=== PATIENT | female | born 1970 | race Caucasian/White ===

== ENCOUNTER 2017-08-14 12:12 | Inpatient (IN) | payer OTHER ==
[2017-08-14 12:32] VITALS: BMI 52.1
[2017-08-14] MEDS ORDERED: ACETAMINOPHEN 1000 MG/100 ML VIAL (NON FORMULARY) IVPB ONE ×2 (12:50→21:30)
[2017-08-14] MEDS ORDERED: SODIUM CHLORIDE 1,000 ML IV STA ×2 (12:50→13:38)
[2017-08-14] MEDS ORDERED: ACETAMINOPHEN INJECTION 100 ML IVPB ONE (13:06)
--- NOTE | 2017-08-14 13:07 | PDOC ---
History of Present Illness - General Chief Complaint: Cold Symptoms Stated Complaint: FEVER Time Seen by Provider: 08/14/17 12:20 History Source: Patient Exam Limitations: No Limitations - History of Present Illness Initial Comments: 08/14/17 13:07 47-year-old female patient with history of asthma, obesity, fibroids, perimenopause presents with one week of fever. She reports no fevers that she's been taken Tylenol Motrin for. Temperature maximum of 103 this was several days ago. Stated that she's had had loose stools but denies any coughing. Reported chills. Denies dysuria but currently on her menstrual period. Came to the ED as her fever has been persistent. Denies sick contacts or recent travels. 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 Past History - Past Medical History Allergies/Adverse Reactions: Allergies Allergy/AdvReac Type Severity Reaction Status Date / Time No Known Allergies Allergy Verified 08/14/17 12:24 Home Medications: Ambulatory Orders NK [No Known Home Medication] 08/14/17 COPD: No Disorders: Yes (FIBROIDS) - Suicide/Smoking/Psychosocial Hx Smoking History: Never smoked Hx Alcohol Use: No Drug/Substance Use Hx: No Substance Use Type: None Review of Systems - Review of Systems Able to Perform ROS?: Yes Comments:: 08/14/17 13:08 GENERAL/CONSTITUTIONAL: +fever HEAD, EYES, EARS, NOSE AND THROAT: No change in vision. No ear pain or discharge. No sore throat. CARDIOVASCULAR: No chest pain or shortness of breath. RESPIRATORY: No cough, wheezing, or hemoptysis. GASTROINTESTINAL: No abdominal pain, nausea, vomiting, or decreased PO intolerance.+ diarrhea GENITOURINARY: No dysuria, frequency, or change in urination. MUSCULOSKELETAL: No joint or muscle swelling or pain. No neck or back pain. SKIN: No rash NEUROLOGIC: No headache, vertigo, loss of consciousness, or change in strength/ sensation. ENDOCRINE: No increased thirst. No abnormal weight change. HEMATOLOGIC/LYMPHATIC: No anemia, easy bleeding, or history of blood clots. ALLERGIC/IMMUNOLOGIC: No hives or skin allergy. *Physical Exam - Vital Signs Last Vital Signs Temp Pulse Resp BP Pulse Ox 101.2 F H 108 H 18 122/85 100 08/14/17 12:13 08/14/17 12:13 08/14/17 12:13 08/14/17 12:13 08/14/17 12:13 - Physical Exam Comments: 08/14/17 13:09 GENERAL: Awake, alert, and fully oriented, in no acute distress. Obese HEAD: No signs of trauma EYES: PERRLA, EOMI, sclera anicteric, conjunctiva clear ENT: Auricles normal inspection, hearing grossly normal, nares patent NECK: Normal ROM, supple LUNGS: Breath sounds equal, clear to auscultation bilaterally. No wheezes, and no crackles HEART: Regular rate and rhythm, normal S1 and S2, no murmurs, rubs or gallops ABDOMEN: Soft. No guarding, no rebound. No masses. TTP suprapubic. Negative McBurney's point. EXTREMITIES: Normal range of motion, no edema. No clubbing or cyanosis. No cords, erythema, or tenderness NEUROLOGICAL: Cranial nerves II through XII grossly intact. Normal speech, normal gait SKIN: Warm, Dry, normal turgor, no rashes or lesions noted. ED Treatment Course - LABORATORY CBC & Chemistry Diagram: 08/14/17 13:00 08/14/17 13:00 Medical Decision Making - Medical Decision Making 08/14/17 13:10 Vital Signs Temp Pulse Resp BP Pulse Ox 101.2 F H 108 H 18 122/85 100 08/14/17 12:13 08/14/17 12:13 08/14/17 12:13 08/14/17 12:13 08/14/17 12:13 47-year-old female with suprapubic abdominal pain and fever. We'll obtain blood work, cultures and urinalysis. The urine demonstrates urine tract infection, I suspect this is likely the case. Reassess. 08/14/17 17:12 CAT scan demonstrates 24 cm pelvic mass suggestive of a mild one. 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 CBC, BMP 08/14/17 13:00 08/14/17 13:00 CMP Sodium 131 mmol/L (136-145) L 08/14/17 13:00 Potassium 3.4 mmol/L (3.5-5.1) L 08/14/17 13:00 Chloride 94 mmol/L (98-107) L 08/14/17 13:00 Carbon Dioxide 26 mmol/L (22-28) 08/14/17 13:00 Anion Gap 11 (8-16) 08/14/17 13:00 BUN 8 mg/dl (7-18) 08/14/17 13:00 Creatinine 0.7 mg/dl (0.6-1.3) 08/14/17 13:00 Creat Clearance w eGFR > 60 (>60) 08/14/17 13:00 Random Glucose 128 mg/dl (74-106) H 08/14/17 13:00 Lactic Acid 1.0 mmol/L (0.0-2.0) 08/14/17 13:40 Calcium 8.3 mg/dl (8.4-10.2) L 08/14/17 13:00 Total Bilirubin 0.3 mg/dl (0.2-1.0) 08/14/17 13:00 AST 53 U/L (10-42) H 08/14/17 13:00 ALT 75 U/L (10-40) H 08/14/17 13:00 Alkaline Phosphatase 184 U/L (32-92) H 08/14/17 13:00 Total Protein 6.9 g/dl (6.4-8.3) 08/14/17 13:00 Albumin 2.6 g/dl (3.5-5.0) L 08/14/17 13:00 Urine Test Results Urine Color Brown 08/14/17 12:52 Urine Appearance Cloudy 08/14/17 12:52 Urine pH 5.5 (4.5-8) 08/14/17 12:52 Ur Specific [place] 1.020 (1.005-1.025) 08/14/17 12:52 Urine Protein 2+ (NEGATIVE) H 08/14/17 12:52 Urine Glucose (UA) Negative (NEGATIVE) 08/14/17 12:52 Urine Ketones Trace (NEGATIVE) 08/14/17 12:52 Urine Blood 3+ (NEGATIVE) H 08/14/17 12:52 Urine Nitrite Negative (NEGATIVE) 08/14/17 12:52 Urine Bilirubin 2+ (NEGATIVE) H 08/14/17 12:52 Ur Leukocyte Esterase Trace (NEGATIVE) H 08/14/17 12:52 Urine RBC >100 /hpf (0-3) 08/14/17 12:52 Urine WBC 20-30 (0-5) 08/14/17 12:52 Ur Epithelial Cells Few /HPF 08/14/17 12:52 Urine Mucus Few 08/14/17 12:52 It is unclear what the etiology of the patient's fever at this time is. We'll presume that this is urine. Given concerns for bacteremia given elevated white blood cell count, patient was given a dose of Rocephin. Case is discussed with hospitalist who accepts the patient at [facility]. Case discussed in detail with admitting physician including history, physical exam and ancillary studies. Admitting physician has assumed care for the patient, will follow all pending diagnostics and will complete the evaluation and treatment. *DC/Admit/Observation/Transfer Diagnosis at time of Disposition: Elevated WBC count Qualifiers: Leukocytosis type: unspecified Qualified Code(s): D72.829 - Elevated white blood cell count, unspecified - Discharge Dispostion Condition at time of disposition: Stable Admit: Yes - Referrals Referrals: Lanny Kang MD [Primary Care Provider] - - Patient Instructions - Post Discharge Activity
[2017-08-14 13:08] LABS: HCG,QUALITATIVE URINE NEGATIVE
[2017-08-14 13:10] LABS: PH,URINE 5.5 (4.5-8); URINE BILIRUBIN 2+ (NEGATIVE); URINE BLOOD 3+ (NEGATIVE); URINE COLOR BROWN; URINE GLUCOSE (UA) Negative (NEGATIVE); URINE KETONE Trace (NEGATIVE)
[2017-08-14 13:11] LABS: URINE LEUK ESTERASE TRACE (NEGATIVE); URINE NITRITE NEGATIVE (NEGATIVE); URINE PROTEIN 2+ (NEGATIVE); URINE UROBILINOGEN 0.2 (0.2-1.0)
[2017-08-14 13:13] LABS: EPI CELLS FEW /HPF; URINE MUCUS FEW; URINE RBC >100 /hpf (0-3); URINE WBC 20-30 (0-5)
[2017-08-14 13:21] LABS: MEAN PLT VOLUME 7.1 fl (7.5-11.1); RDW 15.3 % (11.6-15.6)
[2017-08-14 13:26] LABS: URINE APPEARANCE CLOUDY
[2017-08-14 13:26] LABS: HEMATOCRIT 34.8 % (32.4-45.2); HEMOGLOBIN 11.5 GM/dl (10.7-15.3); MCHC 33.1 g/dl (32.0-36.0); MEAN CELL VOLUME 81.6 fl (80-96); PLATELET COUNT 491 K/MM3 (134-434); RBC 4.26 M/mm3 (3.60-5.2)
[2017-08-14 13:29] LABS: ADD RBC MORPHOLOGY YES; WHITE BLOOD COUNT 35.5 K/mm3 (4.0-10.8)
[2017-08-14] MEDS ORDERED: CEFTRIAXONE 1 GM in DEXTROSE 5%-WATER - 50 ML IVPB ONE (13:31)
[2017-08-14 13:34] LABS: ALBUMIN 2.6 g/dl (3.5-5.0); ALK PHOS 184 U/L (32-92); ANION GAP 11 (8-16); BILIRUBIN,TOTAL 0.3 mg/dl (0.2-1.0); BLOOD UREA NITROGEN 8 mg/dl (7-18); CALCIUM 8.3 mg/dl (8.4-10.2); CHLORIDE 94 mmol/L (98-107); CO2 26 mmol/L (22-28); CREATININE 0.7 mg/dl (0.6-1.3); GLUCOSE,RANDOM 128 mg/dl (74-106); POTASSIUM 3.4 mmol/L (3.5-5.1); SGOT/AST 53 U/L (10-42); SGPT/ALT 75 U/L (10-40); SODIUM 131 mmol/L (136-145); TOT PROT 6.9 g/dl (6.4-8.3)
[2017-08-14] MEDS ORDERED: cefTRIAXone SODIUM 1 GM VIAL ONE (13:38)
[2017-08-14 13:57] LABS: PLATELET ESTIMATE INCREASED
[2017-08-14] MEDS ORDERED: ACETAMINOPHEN 325 MG TABLET (FP) PO PRN (22:22)
[2017-08-14] MEDS ORDERED: CEFTRIAXONE 1 GM in DEXTROSE 5%-WATER - 50 ML IVPB SCH (22:27)
[2017-08-14] MEDS ORDERED: SODIUM CHLORIDE 1,000 ML IV SCH (22:30)
--- NOTE | 2017-08-14 22:31 | PN ---
Teaching Attending Note Name of Resident: Gerard Painter ATTENDING PHYSICIAN STATEMENT I saw and evaluated the patient. I reviewed the resident's note and discussed the case with the resident. I agree with the resident's findings and plan as documented. SUBJECTIVE: This is a 47 year old woman with a history of asthma, fibroids, morbid obesity who comes to the ED complaining of fever, diarrhea, abdominal cramping. She reports having fevers to 103 over the past several days. She has had 3 episodes of loose brown stool in the last 2 days which she says smelled infectious. She has lower abdominal cramping which she attributes to having her menses. She denies dysuria. She has not traveled recently. She says she was diagnosed with an 18 cm fibroid in 04/2017 and around that time was treated with an oral antibiotic (she does not know which) x 1 week for UTI. OBJECTIVE: Vital Signs Period Temp Pulse Resp BP Sys/Solares Pulse Ox Last 24 Hr 98.6 F-101.2 F 83-108 16-18 107-122/60-85 93-100 GENERAL: Appears dyspneic HEART: S1S2, tachycardic LUNGS: Clear ABDOMEN: Obese, soft, (+) mild suprapubic tenderness, normal BS EXTREMITIES: No edema Laboratory Tests 08/14/17 08/14/17 08/14/17 12:52 13:00 13:00 WBC 35.5 H* RBC 4.26 Hgb 11.5 Hct 34.8 MCV 81.6 MCH 27.0 MCHC 33.1 RDW 15.3 Plt Count 491 H MPV 7.1 L Neutrophils % No Result Required. Neutrophils % (Manual) 87.0 H Band Neutrophils % 2.0 Lymphocytes % No Result Required. Lymphocytes % (Manual) 3.0 L Monocytes % (Manual) 7 Eosinophils % (Manual) 1.0 Platelet Estimate Increased Sodium 131 L Potassium 3.4 L Chloride 94 L Carbon Dioxide 26 Anion Gap 11 BUN 8 Creatinine 0.7 Creat Clearance w eGFR > 60 Random Glucose 128 H Lactic Acid Calcium 8.3 L Total Bilirubin 0.3 AST 53 H ALT 75 H Alkaline Phosphatase 184 H Total Protein 6.9 Albumin 2.6 L Urine Color Brown Urine Appearance Cloudy Urine pH 5.5 Ur Specific [place] 1.020 Urine Protein 2+ H Urine Glucose (UA) Negative Urine Ketones Trace Urine Blood 3+ H Urine Nitrite Negative Urine Bilirubin 2+ H Urine Urobilinogen 0.2 Ur Leukocyte Esterase Trace H Urine RBC >100 Urine WBC 20-30 Ur Epithelial Cells Few Urine Mucus Few Urine HCG, Qual Negative 08/14/17 13:40 WBC RBC Hgb Hct MCV MCH MCHC RDW Plt Count MPV Neutrophils % Neutrophils % (Manual) Band Neutrophils % Lymphocytes % Lymphocytes % (Manual) Monocytes % (Manual) Eosinophils % (Manual) Platelet Estimate Sodium Potassium Chloride Carbon Dioxide Anion Gap BUN Creatinine Creat Clearance w eGFR Random Glucose Lactic Acid 1.0 Calcium Total Bilirubin AST ALT Alkaline Phosphatase Total Protein Albumin Urine Color Urine Appearance Urine pH Ur Specific [place] Urine Protein Urine Glucose (UA) Urine Ketones Urine Blood Urine Nitrite Urine Bilirubin Urine Urobilinogen Ur Leukocyte Esterase Urine RBC Urine WBC Ur Epithelial Cells Urine Mucus Urine HCG, Qual Home Medications Medication Instructions Recorded NK [No Known Home Medication] 08/14/17 ASSESSMENT AND PLAN: This is a 47 year old woman with a history of asthma, fibroids, morbid obesity who presented to the ED with fever, diarrhea, abdominal cramping. She was found to have temp 101.4, WBC 35.5, Na 131, AST 53, ALT 75, alk phos 184, albumin 2.6. UA showed 2+ protein, 3+ blood, 2+ bili, trace leuk esterase, 20-30 WBC, > 100 RBC. 1. Sepsis, likely secondary to intra-abdominal source, doubt UTI - Rocephin given in ED - Continue Rocephin and add Flagyl IV - Stool WBC, O&P, C&S, C. difficile - RUQ US - IV fluid - Follow up urine, blood cultures 2. Hyponatremia, hypokalemia - Likely secondary to GI losses - IV NS - Replete potassium - Monitor electrolytes 3. Hepatic transaminitis with elevated alk phos - RUQ US 4. Uterine fibroid 5. Asthma - Stable - Albuterol nebs as needed 6. Morbid obesity with BMI 52.1
[2017-08-14] MEDS ORDERED: HEPARIN NA (PORCINE) 5,000 UNITS/ML 1ML VIAL SQ SCH (22:45)
[2017-08-14] MEDS: SODIUM CHLORIDE 1,000 ML IV SCH (23:25)
[2017-08-14] MEDS: HEPARIN NA (PORCINE) 5,000 UNITS/ML 1ML VIAL SQ SCH (23:25)
--- NOTE | 2017-08-15 02:45 | HP ---
CHIEF COMPLAINT: fever PCP: HISTORY OF PRESENT ILLNESS: The patient is a 47 yo m w/ PMH Asthma and uterine fibroid comes into the ED c/ o a 1 week history of fever and chills. The patient began to experience a fever (highest fever measured 103 degrees) for the past 1 week. The fever is associated with 3 episodes of nonbloody diarrhea which were watery, brown and "smelled infected". Patient denies any sick contacts, recent changes in diet, constipation, chest pain, SOB. 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 ER course was notable for: (1) CT AP showing a 24 CM mass in the abdomen (2) WBC 35.5 (3) Recent Travel: none PAST MEDICAL HISTORY: Asthma Obesity uterine fibroids PAST SURGICAL HISTORY: C section x2 fibroid removal Social History: Smoking: denies Alcohol: denies Drugs: denies Family History: non-contributory Allergies No Known Allergies Allergy (Verified 08/14/17 12:24) HOME MEDICATIONS: Home Medications Medication Instructions Recorded NK [No Known Home Medication] 08/14/17 REVIEW OF SYSTEMS CONSTITUTIONAL: Absent: diaphoresis, generalized weakness, malaise, loss of appetite, weight change HEENT: Absent: rhinorrhea, nasal congestion, throat pain, throat swelling, difficulty swallowing, mouth swelling, ear pain, eye pain, visual changes CARDIOVASCULAR: Absent: chest pain, syncope, palpitations, irregular heart rate, lightheadedness , peripheral edema RESPIRATORY: Absent: cough, shortness of breath, dyspnea with exertion, orthopnea, wheezing, stridor, hemoptysis GASTROINTESTINAL: Absent: abdominal pain, abdominal distension, nausea, vomiting, diarrhea, constipation, melena, hematochezia GENITOURINARY: Absent: dysuria, frequency, urgency, hesitancy, hematuria, flank pain, genital pain MUSCULOSKELETAL: Absent: myalgia, arthralgia, joint swelling, back pain, neck pain SKIN: Absent: rash, itching, pallor HEMATOLOGIC/IMMUNOLOGIC: Absent: easy bleeding, easy bruising, lymphadenopathy, frequent infections ENDOCRINE: Absent: unexplained weight gain, unexplained weight loss, heat intolerance, cold intolerance NEUROLOGIC: Absent: headache, focal weakness or paresthesias, dizziness, unsteady gait, seizure, mental status changes, bladder or bowel incontinence PSYCHIATRIC: Absent: anxiety, depression, suicidal or homicidal ideation, hallucinations. PHYSICAL EXAMINATION Vital Signs - 24 hr 08/14/17 08/14/17 08/14/17 12:13 14:45 17:53 Temperature 101.2 F H 98.6 F 100.3 F H Pulse Rate 108 H 102 H Pulse Rate [ 83 Apical] Respiratory 18 16 18 Rate Blood Pressure 122/85 107/60 Blood Pressure 108/62 [Arm] O2 Sat by Pulse 100 93 L Oximetry (%) 08/14/17 08/14/17 18:02 20:00 Temperature 102.6 F H Pulse Rate 114 H Pulse Rate [ Apical] Respiratory 18 Rate Blood Pressure 123/68 Blood Pressure [Arm] O2 Sat by Pulse 96 97 Oximetry (%) GENERAL: Awake, alert, and fully oriented, in no acute distress. HEAD: Normal with no signs of trauma. NECK: Normal range of motion, supple without lymphadenopathy, JVD, or masses. LUNGS: Breath sounds equal, clear to auscultation bilaterally. No wheezes, and no crackles. No accessory muscle use. HEART: Regular rate and rhythm, normal S1 and S2 without murmur, rub or gallop. ABDOMEN: Firm, mild discomfort to palpation in the upper quadrants, obese, normoactive bowel sounds. LOWER EXTREMITIES: 2+ pulses, warm, well-perfused. No calf tenderness. No peripheral edema. NEUROLOGICAL: Cranial nerves II-X intact. Normal speech. SKIN: Warm, dry, normal turgor, no rashes or lesions noted, normal capillary refill. Laboratory Results - last 24 hr 08/14/17 08/14/17 08/14/17 12:52 13:00 13:00 WBC 35.5 H* RBC 4.26 Hgb 11.5 Hct 34.8 MCV 81.6 MCH 27.0 MCHC 33.1 RDW 15.3 Plt Count 491 H MPV 7.1 L Neutrophils % No Result Required. Neutrophils % (Manual) 87.0 H Band Neutrophils % 2.0 Lymphocytes % No Result Required. Lymphocytes % (Manual) 3.0 L Monocytes % (Manual) 7 Eosinophils % (Manual) 1.0 Platelet Estimate Increased Sodium 131 L Potassium 3.4 L Chloride 94 L Carbon Dioxide 26 Anion Gap 11 BUN 8 Creatinine 0.7 Creat Clearance w eGFR > 60 Random Glucose 128 H Lactic Acid Calcium 8.3 L Total Bilirubin 0.3 AST 53 H ALT 75 H Alkaline Phosphatase 184 H Total Protein 6.9 Albumin 2.6 L Urine Color Brown Urine Appearance Cloudy Urine pH 5.5 Ur Specific [place] 1.020 Urine Protein 2+ H Urine Glucose (UA) Negative Urine Ketones Trace Urine Blood 3+ H Urine Nitrite Negative Urine Bilirubin 2+ H Urine Urobilinogen 0.2 Ur Leukocyte Esterase Trace H Urine RBC >100 Urine WBC 20-30 Ur Epithelial Cells Few Urine Mucus Few Urine HCG, Qual Negative 08/14/17 13:40 WBC RBC Hgb Hct MCV MCH MCHC RDW Plt Count MPV Neutrophils % Neutrophils % (Manual) Band Neutrophils % Lymphocytes % Lymphocytes % (Manual) Monocytes % (Manual) Eosinophils % (Manual) Platelet Estimate Sodium Potassium Chloride Carbon Dioxide Anion Gap BUN Creatinine Creat Clearance w eGFR Random Glucose Lactic Acid 1.0 Calcium Total Bilirubin AST ALT Alkaline Phosphatase Total Protein Albumin Urine Color Urine Appearance Urine pH Ur Specific [place] Urine Protein Urine Glucose (UA) Urine Ketones Urine Blood Urine Nitrite Urine Bilirubin Urine Urobilinogen Ur Leukocyte Esterase Urine RBC Urine WBC Ur Epithelial Cells Urine Mucus Urine HCG, Qual ASSESSMENT/PLAN: This is a 47 yo f w/ PMH asthma and uterine fibroids who is being admitted for workup of fever and leukocytosis #Sepsis w/ unknown source, r/o C. Diff, cholecystitis -UA does not show florid UTI (2+ blood secondary to menstruation) -CXR clear -LFTs, Alp elevated -RUQ US -Stool for ova parasites -stool for C. Diff -stool for WBC -Ceftriaxone 1gm daily -flagyl 500mg Q6H -BCX pending -UCX pending #Hypokalemia -repleted w/ 40meq of KCL -trend #Abdominal mass on CT -Patient aware of large, preexisting leiomyoma. Follows w/ [facility] at [facility] -consider further workup if initial sepsis workup negative. #Asthma -Duonebs PRN #FEN -no fluids indicated -replete lytes as discussed above -regular diet #Prophy -Heparin SQ 5ku TID #Dispo -admit to med surg Visit type - Emergency Visit Emergency Visit: Yes ED Registration Date: 08/14/17 Care time: The patient presented to the Emergency Department on the above date and was hospitalized for further evaluation of their emergent condition. - New Patient This patient is new to me today: Yes Date on this admission: 08/15/17 - Critical Care Critical Care patient: No Hospitalist Screening - Colonoscopy Questionnaire Colonoscopy Questionnaire: Colonoscopy Questionnaire - Patient: 50 - 75 years old and never had a screening colonoscopy: Unknown History of colon or rectal polyps, or CA: Unknown History of IBD, Crohn's disease or UC: Unknown History of abdominal radiation therapy as a child: Unknown - Relative: 1 with colon or rectal CA, or polyps at age 60 or younger: Unknown Colon or rectal CA diagnosed at age 45 or younger: Unknown Multiple relatives with colon or rectal CA: Unknown - Outcome: Screening Result: Negative Screen
[2017-08-15] MEDS ORDERED: POTASSIUM CHLORIDE TABS 20 MEQ TABLET.ER (FP) PO ONE ×3 (04:01→11:19)
[2017-08-15] MEDS: HEPARIN NA (PORCINE) 5,000 UNITS/ML 1ML VIAL SQ SCH ×3 (06:43→23:24)
[2017-08-15 07:15] LABS: HEMATOCRIT 33.3 % (32.4-45.2); HEMOGLOBIN 10.7 GM/dL (10.7-15.3); MCH 26.6 pg (25.7-33.7); MEAN CELL VOLUME 83.1 fl (80-96); PLATELET COUNT 392 K/MM3 (134-434); RBC 4.01 M/mm3 (3.60-5.2); RDW 16.4 % (11.6-15.6); WHITE BLOOD COUNT 34.8 K/mm3 (4.0-10.0)
[2017-08-15 07:50] LABS: INR 1.28 (0.82-1.09); PROTHROMBIN TIME (PATIENT) 14.5 SEC (9.98-11.88)
[2017-08-15 07:53] LABS: ACTIVATED PTT 27.4 SECONDS (26.9-34.4)
[2017-08-15] MEDS ORDERED: cefTRIAXone SODIUM 1 GM VIAL ONE (08:42)
[2017-08-15] MEDS ORDERED: DEXTROSE 5%-WATER - 50 ML IVPB ONE (08:42)
[2017-08-15] MEDS: ACETAMINOPHEN 325 MG TABLET (FP) PO PRN ×2 (09:46→17:03)
[2017-08-15] MEDS ORDERED: CEFTRIAXONE 1 GM in DEXTROSE 5%-WATER - 50 ML IVPB SCH (10:00)
--- NOTE | 2017-08-15 10:37 | PN ---
Progress Note (short form) - Note Progress Note: Subjective: No fever or chills. reports fever x 10 days , for which she took over the counter meds. diarrhea x 2 days , watery foul smelling , 2 BMs a day . has her period x 4 days, now spotting. no N/V. was diagnosed with fibroid in [facility], in 05/09, had MRI there. was diagnosed with UTi, treated for UTI. saw her pCP in May , gave her Abx. no fever or Abx since then. 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 she developed LLQ pain, for which she came here. this has resolved this am. denies any dysuria or urgency. no RUQ pain Objective: Vital Signs: Last Vital Signs Temp Pulse Resp BP Pulse Ox 99.4 F 99 H 18 142/86 97 08/15/17 06:00 08/15/17 06:00 08/15/17 06:00 08/15/17 06:00 08/14/17 20:00 Laboratory Results - last 24 hr 08/14/17 08/14/17 08/14/17 12:52 13:00 13:00 WBC 35.5 H* RBC 4.26 Hgb 11.5 Hct 34.8 MCV 81.6 MCH 27.0 MCHC 33.1 RDW 15.3 Plt Count 491 H MPV 7.1 L Neutrophils % No Result Required. Neutrophils % (Manual) 87.0 H Band Neutrophils % 2.0 Lymphocytes % No Result Required. Lymphocytes % (Manual) 3.0 L Monocytes % (Manual) 7 Eosinophils % (Manual) 1.0 Platelet Estimate Increased PT with INR INR PTT (Actin FS) Sodium 131 L Potassium 3.4 L Chloride 94 L Carbon Dioxide 26 Anion Gap 11 BUN 8 Creatinine 0.7 Creat Clearance w eGFR > 60 Random Glucose 128 H Lactic Acid Calcium 8.3 L Total Bilirubin 0.3 AST 53 H ALT 75 H Alkaline Phosphatase 184 H Total Protein 6.9 Albumin 2.6 L Urine Color Brown Urine Appearance Cloudy Urine pH 5.5 Ur Specific [place] 1.020 Urine Protein 2+ H Urine Glucose (UA) Negative Urine Ketones Trace Urine Blood 3+ H Urine Nitrite Negative Urine Bilirubin 2+ H Urine Urobilinogen 0.2 Ur Leukocyte Esterase Trace H Urine RBC >100 Urine WBC 20-30 Ur Epithelial Cells Few Urine Mucus Few Urine HCG, Qual Negative 08/14/17 08/15/17 08/15/17 13:40 06:00 06:00 WBC 34.8 H* RBC 4.01 Hgb 10.7 Hct 33.3 MCV 83.1 MCH 26.6 MCHC 32.0 RDW 16.4 H Plt Count 392 MPV 7.0 L Neutrophils % No Result Required. Neutrophils % (Manual) Band Neutrophils % Lymphocytes % No Result Required. Lymphocytes % (Manual) Monocytes % (Manual) Eosinophils % (Manual) Platelet Estimate PT with INR 14.50 H INR 1.28 H PTT (Actin FS) 27.4 Sodium Potassium Chloride Carbon Dioxide Anion Gap BUN Creatinine Creat Clearance w eGFR Random Glucose Lactic Acid 1.0 Calcium Total Bilirubin AST ALT Alkaline Phosphatase Total Protein Albumin Urine Color Urine Appearance Urine pH Ur Specific [place] Urine Protein Urine Glucose (UA) Urine Ketones Urine Blood Urine Nitrite Urine Bilirubin Urine Urobilinogen Ur Leukocyte Esterase Urine RBC Urine WBC Ur Epithelial Cells Urine Mucus Urine HCG, Qual Physical Exam: NAD , MMM, rash on face CV: RRR, 2/6 SM at base and LLSB Lungs:CTAB abd: obese, soft, TTP in periumbilical area. a solid mass is felt in abd, upper margin felt in supra-umbilical area . Ext: no edema Imaging: CT abd/p reviewed. Assessment/Plan: 27 y/o lady with h/o recently diagnosed fibroid 05/09, adn UTI who presented with fever and chills x 10 days 1- Sepsis: could be due to C diff. she has pyuria but there is no urinary sx. Doubt UTI but possible. although her LFTs are elevated, she has no RUQ pain or tenderness, and CT showed no biliary dilation. ascending cholangitis is unlikely. although has L ovarian cyst, I don't think it is infected. - follow US of liver . if there is any biliary dilation , then MRCP - cont ceftriaxone empirically for UTI - dc IV flagyl and start po vanco empirically for C diff - follow stool studies. - IVF - ID consult - follow CBC ( labs are pending ) 2- Uterine Fibroid :had MRI in [facility] in 05/09. will obtain report. - f/u with HALL MANAGER as out pt , has appointment already - L ovarian cyst , f/u as outpt 3- transaminitis: could be due to sepsis. - with nL bili and no RUQ tenderness I doubt ascending cholangitis. - US pending . if CBD dilation , will get MRCP - repat LFTS pending 4- DVT px Visit type - Emergency Visit Emergency Visit: Yes ED Registration Date: 08/14/17 Care time: The patient presented to the Emergency Department on the above date and was hospitalized for further evaluation of their emergent condition. - New Patient This patient is new to me today: Yes Date on this admission: 08/15/17 - Critical Care Critical Care patient: No - Discharge Referral Referred to [facility] Med P.C.: No
[2017-08-15 11:08] LABS: CHLORIDE 102 mmol/L (98-107); POTASSIUM 3.1 mmol/L (3.5-5.1); SODIUM 139 mmol/L (136-145)
[2017-08-15 11:46] LABS: ALBUMIN 2.2 g/dl (3.4-5.0); ALK PHOS 225 U/L (45-117); ANION GAP 10 (8-16); BILIRUBIN,TOTAL 0.3 mg/dL (0.2-1.0); BLOOD UREA NITROGEN 7 mg/dL (7-18); CALCIUM 7.8 mg/dL (8.5-10.1); CO2 27 mmol/L (21-32); CREATININE 0.4 mg/dL (0.55-1.02); GLUCOSE,RANDOM 115 mg/dL (74-106); MAGNESIUM 2.2 mg/dL (1.8-2.4); PHOSPHOROUS 3.3 mg/dL (2.5-4.9); SGOT/AST 59 U/L (15-37); SGPT/ALT 94 U/L (12-78); TOT PROT 6.2 g/dl (6.4-8.2)
--- NOTE | 2017-08-15 11:59 | PN ---
Progress Note (short form) - Note Progress Note: ID consult dictated 47 year old female PMH obesitiy, uterine fibroid history of UTI in April- preceded by several days of fever- reports her doctors in clinic could not figure it out until she went to the ED- was treated for ecoli uti with a bid antibiotic for 10 days did well no fevers until last Wednesday (9days ago) started having fevers and chills, no localizing signs no myalgiax, no nausea, no abdominal pain no headaches no hiv risk factors, no blood transfusions- declines HIV testing at this time on Wednesday she developed cramps and started her period, has had loose sttols 2 to 3 times a day since Wednesday fevers 101 to 102 no tampons no meds 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 [employer] no travel pets- cats, one dog no dental work no antibiotics at home ct scan with enlarged uterus with fibroids and left ovarian cyst, no colitis wbc 35k abnl LFTs FUO nontoxic agree with rocephin/flagyl flu cultures ?cdiff- f/u stool studies ?uti esr/crp sonogram liver/gallbladder with abnl lfts cxray further reccd to follow Problem List - Problems (1) FUO (fever of unknown origin) Code(s): R50.9 - FEVER, UNSPECIFIED (2) Elevated WBC count Code(s): D72.829 - ELEVATED WHITE BLOOD CELL COUNT, UNSPECIFIED Qualifiers: Leukocytosis type: unspecified Qualified Code(s): D72.829 - Elevated white blood cell count, unspecified
[2017-08-15] MEDS ORDERED: VANCOMYCIN 250 MG/5 ML ORAL SOLUTION PO SCH (12:00)
[2017-08-15 12:02] LABS: ACANTHOCYTES 0; ANISOCYTOSIS 0; HELMET CELLS 0; HOWELL-JOLLY BODIES 0; MACROCYTOSIS 0; OVALOCYTE 0; PLATELET ESTIMATE NORMAL; ROULEAU 0; SICKELED CELLS 0; TARGET CELLS 0; TEAR DROP CELLS 0; TOXIC GRANULATION 0
[2017-08-15] MEDS: CEFTRIAXONE 2 GM-D5W BAG 2 GM/50 ML BAG IVPB SCH (13:06)
--- NOTE | 2017-08-15 14:22 | CONS ---
DATE OF CONSULTATION: 08/14/2017 HISTORY: This is a 47-year-old woman with a past medial history of obesity. She has a history of a recent urinary tract infection with E. coli in April. At that time she apparently had had several days of fevers. She reports going to her outpatient doctor to see her more than once and they were unable to figure out what was wrong with her. She was seen at the [facility] Emergency Room and diagnosed with UTI. She took oral antibiotics for 10 days with resolution of her fever. Since that time she has been well. Now on last Wednesday night she developed chills followed by a fever. She spent the weekend in bed. It was her anniversary and she did not celebrate. She had really no other symptoms besides she would feel chilled, she would have some shaking, and she would stay in bed. There was no headache. There were no myalgias. She had no sore throat. She had no cough. Her appetite was poor but there was no nausea or vomiting. She had no dysuria or abdominal pain. On Wednesday she started her period. She had some cramps when that started; otherwise, was unremarkable. On Wednesday she started having loose stools 2 to 3 times a day. She really has no other complaints. She has not had any dysuria and she is not short of breath. There is no history of any travel. She lives with her family. There have been no sick contacts. 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 She has not had any dental work. Of note, she has a known very enlarged uterine fibroid for which she has had an MRI and been referred to Gynecology. PAST MEDICAL HISTORY: Notable for asthma, obesity, and uterine fibroids. SURGICAL HISTORY: section x2. SOCIAL HISTORY: She has been for many years. She is monogamous. She lives with her and her 2 children. They have several cats and a pet dog. FAMILY HISTORY: Noncontributory. ALLERGIES: She has no known drug allergies. MEDICATIONS: She does not take any medicines. REVIEW OF SYSTEMS: She has had no rash, she has no headaches, and she has no sore throat. She has had no sinus pain, no difficulty swallowing. There is no chest pain. She has no cough. She does not feel short of breath. She has not had any nausea with meals. She does report the diarrhea. She has had no change in urination. There has been no pain or discomfort. PHYSICAL EXAMINATION: General: She is awake and alert. She is completely nontoxic. She reports feeling better than when she came in. Vital Signs: Her temperature T-max was 102.6, current temperature at 99.4, pulse is 99, blood pressure 142/86, respiratory rate is 18, and she is saturating 97% on room air. HEENT: She is normocephalic. Her eyes are anicteric. She has no conjunctival hemorrhages. She has no thrush. Her dentition is fair. She has no pharyngitis. Neck: Supple. There are no meningineal signs. Lungs: Have diminished breath sounds at the bases. Heart: Regular rate and rhythm. Abdomen: Appears gravid. She has a very large midline mass which she reports is her fibroid. It is completely nontender. She has no abdominal pain on palpation. Extremities: Without edema. She has no rash. She has no palpable adenopathy. LABORATORY DATA: Labs are notable on admission for a white count of 35,000, hemoglobin is 11.5, and platelets are 491. INR is 1.2. BUN and creatinine are 7 and 0.4. Liver function tests are notable for AST of 59, ALT of 94, alkaline phosphatase is 225, and albumin is 2.2. Urinalysis has 3+ blood, 2+ protein, 2+ bilirubin, and trace leukocytes greater than 100 red cells and 20 to 30 white cells. She is having her period. Her test is negative. Cultures are pending. Influenza screen is negative. CAT scan of the abdomen and pelvis shows no gallstones, no hydronephrosis, and no retroperitoneal lymphadenopathy. She has a small periumbilical hernia containing fat. No inflammatory changes of the appendix or colon. 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 There is no obstruction as well. In summary, this is a 47-year-old woman with an: 1. FUO and leukocytosis, loose stools, prior history of antibiotics, UA that is possibly infected and no other obvious sources of infection. Interestingly although she has a fever and white count she clinically looks well. She has no HIV risk factors and declines HIV testing. I would suggest at this time that she has FUO with leukocytosis. I would agree with Staci and Nena and would follow up with her cultures and stool studies as well. 2. Possible C. diff though there is no colitis on the CAT scan. Would await stool studies. 3. Possible UTI. We will check a sedimentation rate and CRP, sonogram of the liver would get a chest x-ray, and await culture results. Further recommendations to follow based on her clinical course. OPAL SINGLETARY M.D. [id number]
[2017-08-15] MEDS: SODIUM CHLORIDE 1,000 ML IV SCH (23:24)
[2017-08-16] MEDS: HEPARIN NA (PORCINE) 5,000 UNITS/ML 1ML VIAL SQ SCH ×3 (05:41→21:14)
[2017-08-16] MEDS: ACETAMINOPHEN 325 MG TABLET (FP) PO PRN (05:41)
[2017-08-16 07:46] LABS: ALBUMIN 2.1 g/dl (3.4-5.0); ANION GAP 12 (8-16); BILIRUBIN,TOTAL 0.3 mg/dL (0.2-1.0); BLOOD UREA NITROGEN 7 mg/dL (7-18); CALCIUM 8.2 mg/dL (8.5-10.1); CHLORIDE 103 mmol/L (98-107); CO2 26 mmol/L (21-32); CREATININE 0.4 mg/dL (0.55-1.02); GLUCOSE,RANDOM 108 mg/dL (74-106); POTASSIUM 3.4 mmol/L (3.5-5.1); SGOT/AST 36 U/L (15-37); SGPT/ALT 73 U/L (12-78); SODIUM 141 mmol/L (136-145); TOT PROT 6.2 g/dl (6.4-8.2)
[2017-08-16 07:47] LABS: ALK PHOS 202 U/L (45-117)
[2017-08-16 08:26] LABS: HEMATOCRIT 31.1 % (32.4-45.2); MCHC 32.2 g/dl (32.0-36.0); MEAN CELL VOLUME 83.7 fl (80-96); MEAN PLT VOLUME 7.2 fl (7.5-11.1); PLATELET COUNT 416 K/MM3 (134-434); RBC 3.72 M/mm3 (3.60-5.2); RDW 16.4 % (11.6-15.6); WHITE BLOOD COUNT 28.9 K/mm3 (4.0-10.0)
[2017-08-16] MEDS: CEFTRIAXONE 2 GM-D5W BAG 2 GM/50 ML BAG IVPB SCH (09:58)
[2017-08-16 11:43] LABS: PLATELET ESTIMATE NORMAL
--- NOTE | 2017-08-16 12:04 | PN ---
Progress Note, Physician Chief Complaint: ID Vague abd complaints Reports some diarrhea Febrile low grade now Ceftriaxone and metronidazole - Current Medication List Current Medications: Active Medications Acetaminophen (Tylenol -) 650 mg PO Q6H PRN PRN Reason: FEVER Last Admin: 08/16/17 05:41 Dose: 650 mg Heparin Sodium (Porcine) (Heparin -) 5,000 unit SQ TID UZMA Last Admin: 08/16/17 05:41 Dose: 5,000 unit Metronidazole (Flagyl 500mg Premixed Ivpb -) 500 mg in 100 mls @ 100 mls/hr IVPB Q8H-IV UZMA Last Admin: 08/16/17 09:58 Dose: 100 mls/hr CEFTRIAXONE IN IS-OSM DEXTROSE (Ceftriaxone 2 Gm-D5w Bag) 2 gm in 50 mls @ 200 mls/hr IVPB DAILY UZMA Last Admin: 08/16/17 09:58 Dose: 200 mls/hr - Objective Vital Signs: Vital Signs Temperature 98.4 F 08/16/17 10:00 Pulse Rate 70 08/16/17 10:00 Respiratory Rate 20 08/16/17 10:00 Blood Pressure 135/79 08/16/17 10:00 O2 Sat by Pulse Oximetry (%) 94 L 08/16/17 09:00 Constitutional: Yes: Obese Cardiovascular: Yes: Murmur, S1, S2 Respiratory: Yes: WNL, Regular, CTA Bilaterally Gastrointestinal: Yes: Soft, Distention. No: Tenderness, Tenderness, Epigastrium Labs: CBC, BMP 08/16/17 06:05 08/16/17 06:05 INR, PTT INR 1.28 (0.82-1.09) H 08/15/17 06:00 Assessment/Plan Laboratory Tests 08/14/17 08/15/17 08/16/17 13:00 06:00 06:05 WBC 35.5 H* 34.8 H* BUN 7 Creatinine 0.4 L Total Bilirubin 0.3 AST 36 ALT 73 Alkaline Phosphatase 202 H 08/16/17 06:05 WBC 28.9 H BUN Creatinine Total Bilirubin AST ALT Alkaline Phosphatase Assessment Fever and leukocytosis unclear etiology Has fibroids large ? degenerating C diff also a possibility given recent antibiotics Plan CRP ESR Would obtain C diff toxin and given oral vancomycin 5mg qid Suggest Surgical consult given morbid obesity Jody BASHIR
--- NOTE | 2017-08-16 15:25 | PN ---
Teaching Attending Note Name of Resident: Gerard Painter ATTENDING PHYSICIAN STATEMENT I saw and evaluated the patient. I reviewed the resident's note and discussed the case with the resident. I agree with the resident's findings and plan as documented. SUBJECTIVE: no fever or chills. has no abd pain. feels much better today OBJECTIVE: NAD, MMM, rash on face CV: RRR, 2/6 SM at base and LLSB Lungs: CTAB Abd: obese, soft, TTP in periumbilical area. a solid mass is felt in abd, upper margin felt in supra-umbilical area . Ext: no edema Assessment/Plan: 27 y/o lady with h/o recently diagnosed fibroid 05/09, adn UTI who presented with fever and chills x 10 days 1- Sepsis: could be due to C diff. no convincing evidenc eof UTI. no PNA , no concern for biliary source - cont ceftriaxone and flagyl - po vanco added - follow c diff and stool cx - REAL ESTATE AGENCY PRINCIPAL consult for evaluation of fibroid and ovarian cyst 2- Uterine Fibroid: had MRI in [facility] in 05/09. L ovarian cyst. - will review records form [facility] - REAL ESTATE AGENCY PRINCIPAL consult 3- Transaminitis: likely due to sepsis. improved US reviewed. monitor 4- DVT px
--- NOTE | 2017-08-16 16:30 | PN ---
Physical Exam: SUBJECTIVE: Patient seen and examined at bedside. Patient continues to have diarrhea, approx. 2-3 times per day. max 101.9 last night. OBJECTIVE: Vital Signs Period Temp Pulse Resp BP Sys/Solares Pulse Ox Last 24 Hr 98.1 F-101.9 F 70-107 18-20 122-145/53-79 94-97 GENERAL: The patient is awake, alert, and fully oriented, in no acute distress. NECK: Trachea midline, full range of motion, supple. LUNGS: Breath sounds equal, clear to auscultation bilaterally, no wheezes, no crackles, no accessory muscle use. HEART: Regular rate and rhythm, S1, S2 without murmur, rub or gallop. ABDOMEN: firm, obese, nontender. Normoactive bowel sounds, no guarding, no rebound, no hepatosplenomegaly, no masses. EXTREMITIES: 2+ pulses, warm, well-perfused, no edema. NEUROLOGICAL: Cranial nerves II through X grossly intact. Normal speech, gait not observed. SKIN: Warm, dry, normal turgor, no rashes or lesions noted Laboratory Results - last 24 hr 08/16/17 08/16/17 08/16/17 06:05 06:05 06:05 WBC RBC Hgb Hct MCV MCH MCHC RDW Plt Count MPV Neutrophils % Neutrophils % (Manual) Band Neutrophils % Lymphocytes % Lymphocytes % (Manual) Monocytes % (Manual) Eosinophils % (Manual) Basophils % (Manual) Myelocytes % (Man) Promyelocytes % (Man) Blast Cells % (Manual) Nucleated RBC % Metamyelocytes Platelet Estimate ESR 101 H Sodium 141 Potassium 3.4 L Chloride 103 Carbon Dioxide 26 Anion Gap 12 BUN 7 Creatinine 0.4 L Creat Clearance w eGFR > 60 Random Glucose 108 H Calcium 8.2 L Total Bilirubin 0.3 AST 36 ALT 73 Alkaline Phosphatase 202 H C-Reactive Protein 18.3 H Total Protein 6.2 L Albumin 2.1 L 08/16/17 08/16/17 06:05 12:30 WBC 28.9 H RBC 3.72 Hgb 10.0 L Hct 31.1 L MCV 83.7 MCH 27.0 MCHC 32.2 RDW 16.4 H Plt Count 416 MPV 7.2 L Neutrophils % No Result Required. Neutrophils % (Manual) 87.6 H Band Neutrophils % 0.0 Lymphocytes % No Result Required. Lymphocytes % (Manual) 6.2 L D Monocytes % (Manual) 4 Eosinophils % (Manual) 2.1 D Basophils % (Manual) 0.0 Myelocytes % (Man) 0 Promyelocytes % (Man) 0 Blast Cells % (Manual) 0 Nucleated RBC % 1 H Metamyelocytes 0 Platelet Estimate Normal ESR Sodium Potassium Chloride Carbon Dioxide Anion Gap BUN Creatinine Creat Clearance w eGFR Random Glucose Calcium Total Bilirubin AST ALT Alkaline Phosphatase C-Reactive Protein 16.4 H Total Protein Albumin Active Medications Generic Name Dose Route Start Last Admin Trade Name Freq PRN Reason Stop Dose Admin Acetaminophen 650 mg 08/14/17 22:47 08/16/17 05:41 Tylenol - PO 650 mg Q6H PRN Administration FEVER Heparin Sodium (Porcine) 5,000 unit 08/14/17 23:30 08/16/17 13:22 Heparin - SQ 5,000 unit TID UZMA Administration Metronidazole 500 mg in 100 mls @ 100 mls/hr 08/15/17 12:15 08/16/17 09:58 Flagyl 500mg Premixed Ivpb - IVPB 100 mls/hr Q8H-IV UZMA Administration CEFTRIAXONE IN IS-OSM DEXTROSE 2 gm in 50 mls @ 200 mls/hr 08/15/17 12:30 09:58 Ceftriaxone 2 Gm-D5w Bag IVPB 200 mls/hr DAILY UZMA Administration Vancomycin HCl 125 mg 08/16/17 18:00 Vancomycin Oral Solution PO Q6HPO UZMA ASSESSMENT/PLAN: This is a 47 yo f w/ PMH asthma and uterine fibroids who is being admitted for workup of fever and leukocytosis #Sepsis w/ unknown source, r/o C. Diff -UA does not show florid UTI (2+ blood secondary to menstruation) -CXR clear -LFTs, Alp elevated -RUQ US- hepatomegaly with coarse echotexture to liver. -f/u stool studies -Ceftriaxone 2gm daily (day 2) -flagyl 500mg Q8H (day 2) -BCX negative -UCX negative #Hypokalemia - resolved #Abdominal mass on CT -Patient aware of large, preexisting leiomyoma. Follows w/ FLOORWORKER LASTING at [facility] -FLOORWORKER LASTING consult as patient may have degenerating fibroid causing her symptoms #Asthma -Duonebs PRN #FEN -no fluids indicated -replete lytes as discussed above -regular diet #Prophy -Heparin SQ 5ku TID #Dispo -admit to med surg Visit type - Emergency Visit Emergency Visit: Yes ED Registration Date: 08/14/17 Care time: The patient presented to the Emergency Department on the above date and was hospitalized for further evaluation of their emergent condition. - New Patient This patient is new to me today: No - Critical Care Critical Care patient: No
[2017-08-16] MEDS: VANCOMYCIN 250 MG/5 ML ORAL SOLUTION PO SCH (17:23)
[2017-08-17] MEDS: VANCOMYCIN 250 MG/5 ML ORAL SOLUTION PO SCH ×3 (01:14→12:02)
[2017-08-17] MEDS: HEPARIN NA (PORCINE) 5,000 UNITS/ML 1ML VIAL SQ SCH ×3 (05:33→21:24)
[2017-08-17] MEDS: ACETAMINOPHEN 325 MG TABLET (FP) PO PRN ×2 (05:34→17:35)
[2017-08-17 06:38] LABS: HEMATOCRIT 30.7 % (32.4-45.2); HEMOGLOBIN 10.3 GM/dL (10.7-15.3); MCH 27.6 pg (25.7-33.7); MCHC 33.4 g/dl (32.0-36.0); MEAN CELL VOLUME 82.7 fl (80-96); PLATELET COUNT 450 K/MM3 (134-434); RBC 3.71 M/mm3 (3.60-5.2); RDW 16.6 % (11.6-15.6); WHITE BLOOD COUNT 28.4 K/mm3 (4.0-10.0)
[2017-08-17 07:05] LABS: ANION GAP 8 (8-16); BLOOD UREA NITROGEN 6 mg/dL (7-18); CALCIUM 7.9 mg/dL (8.5-10.1); CHLORIDE 102 mmol/L (98-107); CO2 28 mmol/L (21-32); CREATININE 0.4 mg/dL (0.55-1.02); GLUCOSE,RANDOM 110 mg/dL (74-106); SODIUM 138 mmol/L (136-145)
[2017-08-17 07:08] LABS: POTASSIUM 3.8 mmol/L (3.5-5.1)
[2017-08-17] MEDS: CEFTRIAXONE 2 GM-D5W BAG 2 GM/50 ML BAG IVPB SCH (09:29)
--- NOTE | 2017-08-17 14:37 | PN ---
Progress Note, Physician Chief Complaint: ID Subjective improvement today Low grade temp not much abd pain Ceftriaxone and metronidazole oral vanco - Current Medication List Current Medications: Active Medications Acetaminophen (Tylenol -) 650 mg PO Q6H PRN PRN Reason: FEVER Last Admin: 08/17/17 05:34 Dose: 650 mg Heparin Sodium (Porcine) (Heparin -) 5,000 unit SQ TID [facility] Last Admin: 08/17/17 05:33 Dose: 5,000 unit Metronidazole (Flagyl 500mg Premixed Ivpb -) 500 mg in 100 mls @ 100 mls/hr IVPB Q8H-IV UZMA Last Admin: 08/17/17 09:29 Dose: 100 mls/hr CEFTRIAXONE IN IS-OSM DEXTROSE (Ceftriaxone 2 Gm-D5w Bag) 2 gm in 50 mls @ 200 mls/hr IVPB DAILY [facility] Last Admin: 08/17/17 09:29 Dose: 200 mls/hr Vancomycin HCl (Vancomycin Oral Solution) 125 mg PO Q6HPO [facility] Last Admin: 08/17/17 12:02 Dose: 125 mg - Objective Vital Signs: Vital Signs Temperature 98 F 08/17/17 09:22 Pulse Rate 95 H 08/17/17 09:22 Respiratory Rate 20 08/17/17 09:22 Blood Pressure 149/77 08/17/17 09:22 O2 Sat by Pulse Oximetry (%) 95 08/17/17 09:00 Constitutional: Yes: No Distress, Obese Neck: Yes: WNL, Supple Cardiovascular: Yes: S1, S2 Respiratory: Yes: WNL, Regular, CTA Bilaterally Gastrointestinal: Yes: Soft. No: Tenderness Labs: CBC, BMP 08/17/17 05:35 08/17/17 05:35 INR, PTT INR 1.28 (0.82-1.09) H 08/15/17 06:00 Assessment/Plan Laboratory Tests 08/16/17 08/16/17 08/16/17 06:05 06:05 12:30 WBC Hgb Hct Plt Count ESR 101 H BUN Creatinine C-Reactive Protein 18.3 H 16.4 H 08/17/17 08/17/17 05:35 05:35 WBC 28.4 H Hgb 10.3 L Hct 30.7 L Plt Count 450 H ESR BUN 6 L Creatinine 0.4 L C-Reactive Protein Assessment Leukocytosis persistant Elevated ESR and CRP concerning ? Intraabd infection and or pelvic process considered included degenerating fibroids C diff neg Plan Stop oral vancomycin Surgical evaluation suggested along with ANALYTICAL LEAD ( pelvic sonogram) IV antibiotics Jody BASHIR
--- NOTE | 2017-08-17 14:44 | CON.OBG ---
Consult Consult Specialty:: OB / LANDSCAPER HELPER Reason for Consultation:: Abdominal mass - History of Present Illness Chief Complaint: Abdominal mass / Fibroid History of Present Illness: 47 yo Para 2 with 2 prior C-Sections and one prior myomectomy, admitted for fever associated with elevated white blood cells. Patient had a Cat scan showing evidence of a 24cm mass c/o fibroid uterus. She denies any abdominal pain. - History Source History Provided By: Patient Limitations to Obtaining History: No Limitations - Past Medical History ...LMP: 08/14/17 ...: No ...Para: 2 - Past Surgical History Past Surgical History: Yes: Additional Surgical History: Myomectomy - Alcohol/Substance Use Hx Alcohol Use: No History of Substance Use: reports: None - Smoking History Smoking history: Never smoked Home Medications - Allergies Allergies/Adverse Reactions: Allergies Allergy/AdvReac Type Severity Reaction Status Date / Time No Known Allergies Allergy Verified 08/14/17 12:24 - Home Medications Home Medications: Ambulatory Orders NK [No Known Home Medication] 08/14/17 Review of Systems - Review of Systems Constitutional: reports: Fever Eyes: reports: No Symptoms HENT: reports: No Symptoms Neck: reports: No Symptoms Cardiovascular: reports: No Symptoms Respiratory: reports: No Symptoms Gastrointestinal: reports: No Symptoms Genitourinary: reports: No Symptoms Breasts: reports: No Symptoms Reported Musculoskeletal: reports: No Symptoms Neurological: reports: No Symptoms Endocrine: reports: No Symptoms Hematology/Lymphatic: reports: No Symptoms Psychiatric: reports: No Symptoms Pain Intensity: 0 Physical Exam-LANDSCAPER HELPER Vital Signs: Vital Signs Temperature 98 F 08/17/17 09:22 Pulse Rate 95 H 08/17/17 09:22 Respiratory Rate 20 08/17/17 09:22 Blood Pressure 149/77 08/17/17 09:22 O2 Sat by Pulse Oximetry (%) 95 08/17/17 09:00 Constitutional: Yes: Well Nourished Eyes: Yes: Conjunctiva Clear HENT: Yes: Atraumatic Neck: Yes: Supple Cardiovascular: Yes: Regular Rate and Rhythm Respiratory: Yes: Regular Gastrointestinal: Yes: Abdomen, Obese, Distention, Palpable Mass ...Rectal Exam: Yes: WNL External Genitalia: Yes: Normal Vaginal Exam: Yes: Normal Cervix: Yes: Normal Uterus: Yes: Enlarged Musculoskeletal: Yes: WNL Neurological: Yes: Alert, Oriented ...Motor Strength: WNL Psychiatric: Yes: Alert, Oriented Labs: CBC, BMP 08/17/17 05:35 08/17/17 05:35 Problem List - Problems (1) Abdominal mass Code(s): R19.00 - INTRA-ABD AND PELVIC SWELLING, MASS AND LUMP, UNSP SITE (2) Fibroid uterus Code(s): D25.9 - LEIOMYOMA OF UTERUS, UNSPECIFIED Assessment/Plan Abdominal mass Fibroid uterus Leukocytosis F/U Transvaginal sonogram Continue antibiotic F/U tumor markers Endometrial biopsy recommended once patient is stable Possible hysterectomy after endometrial biopsy.
--- NOTE | 2017-08-17 15:38 | PN ---
Physical Exam: SUBJECTIVE: Patient seen and examined at bedside. No new complaints. continues to have diarrhea. temperature to 100.3 today OBJECTIVE: Vital Signs Period Temp Pulse Resp BP Sys/Solares Pulse Ox Last 24 Hr 98 F-100.3 F 85-107 19-20 125-149/60-77 94-95 GENERAL: The patient is awake, alert, and fully oriented, in no acute distress. LUNGS: Breath sounds equal, clear to auscultation bilaterally, no wheezes, no crackles, no accessory muscle use. HEART: Regular rate and rhythm, S1, S2 without murmur, rub or gallop. ABDOMEN: Soft, obese, nontender. Mass can be felt in the abdomen. normoactive bowel sounds, no guarding, no rebound, no hepatosplenomegaly, no masses. EXTREMITIES: 2+ pulses, warm, well-perfused, no edema. NEUROLOGICAL: Cranial nerves II through X grossly intact. Normal speech, gait not observed. SKIN: Warm, dry, normal turgor, no rashes or lesions noted Laboratory Results - last 24 hr 08/17/17 08/17/17 05:35 05:35 WBC 28.4 H RBC 3.71 Hgb 10.3 L Hct 30.7 L MCV 82.7 MCH 27.6 MCHC 33.4 RDW 16.6 H Plt Count 450 H MPV 7.0 L Sodium 138 Potassium 3.8 Chloride 102 Carbon Dioxide 28 Anion Gap 8 BUN 6 L Creatinine 0.4 L Random Glucose 110 H Calcium 7.9 L Active Medications Generic Name Dose Route Start Last Admin Trade Name Freq PRN Reason Stop Dose Admin Acetaminophen 650 mg 08/14/17 22:47 08/17/17 05:34 Tylenol - PO 650 mg Q6H PRN Administration FEVER Heparin Sodium (Porcine) 5,000 unit 08/14/17 23:30 08/17/17 05:33 Heparin - SQ 5,000 unit TID UZMA Administration Metronidazole 500 mg in 100 mls @ 100 mls/hr 08/15/17 12:15 08/17/17 09:29 Flagyl 500mg Premixed Ivpb - IVPB 100 mls/hr Q8H-IV UZMA Administration CEFTRIAXONE IN IS-OSM DEXTROSE 2 gm in 50 mls @ 200 mls/hr 08/15/17 12:30 09:29 Ceftriaxone 2 Gm-D5w Bag IVPB 200 mls/hr DAILY UZMA Administration ASSESSMENT/PLAN: This is a 47 yo f w/ PMH asthma and uterine fibroids who is being admitted for workup of fever and leukocytosis #Sepsis w/ unknown source, r/o C. Diff -UA does not show florid UTI (2+ blood secondary to menstruation) -CXR clear -RUQ US- hepatomegaly with coarse echotexture to liver -f/u stool studies -Ceftriaxone 2gm daily (day 2) -flagyl 500mg Q8H (day 2) -contacted patient's primary, who states that the patient had recent episode of leukocytosis. She was treated for a UTI. ESR at this time was elevated. AntiDSDNA, YE were both negative. -will consider consulting heme-onc if surgical consults find no source. #Hypokalemia - resolved #Abdominal mass on CT -Patient aware of large, preexisting leiomyoma. Follows w/ LEAD CAREGIVER at [facility] -LEAD CAREGIVER consult -ordered CEA, Ca125, Ca 19-9 -Ordered transvaginal US -will f/u additional recommendations -surgery consult #Asthma -Duonebs PRN #FEN -no fluids indicated -replete lytes as discussed above -regular diet #Prophy -Heparin SQ 5ku TID #Dispo -admit to med surg Visit type - Emergency Visit Emergency Visit: Yes ED Registration Date: 08/14/17 Care time: The patient presented to the Emergency Department on the above date and was hospitalized for further evaluation of their emergent condition. - New Patient This patient is new to me today: No - Critical Care Critical Care patient: No
--- NOTE | 2017-08-17 16:02 | PN ---
Teaching Attending Note Name of Resident: Gerard Painter ATTENDING PHYSICIAN STATEMENT I saw and evaluated the patient. I reviewed the resident's note and discussed the case with the resident. I agree with the resident's findings and plan as documented. SUBJECTIVE: No fever or chills. no abd pain, persistent diarrhea . OBJECTIVE: NAD, MMM, rash on face CV: RRR, 2/6 SM at base and LLSB Lungs: CTAB Abd: obese, soft, TTP in periumbilical area. a solid mass is felt in abd, upper margin felt in supra-umbilical area . Ext: no edema Assessment/Plan: 27 y/o lady with h/o recently diagnosed fibroid 05/09, adn UTI who presented with fever and chills x 10 days 1-Suspected Sepsis: unclear cause. WBC is still very elevated despite Abx, which raises the suspicion for non infectious causes. - cont ceftriaxone and flagyl - off PO vanco - form large fibroid ? - will place surgical consult 2- Uterine Fibroid: had MRI in [facility] in 05/09 which showed up 18 cm fibroid L ovarian cyst. - HIGH SCHOOL COMPUTER SCIENCE TEACHER consult appreciated. TV US pending . - surgical consult 3- Transaminitis: likely due to sepsis. improved 4- DVT px
[2017-08-18] MEDS: HEPARIN NA (PORCINE) 5,000 UNITS/ML 1ML VIAL SQ SCH ×3 (06:12→22:12)
--- NOTE | 2017-08-18 06:27 | PN ---
<Gerard Painter - Last Filed: 08/18/17 06:27> Physical Exam: SUBJECTIVE: Patient seen and examined OBJECTIVE: Vital Signs Period Temp Pulse Resp BP Sys/Solares Pulse Ox Last 24 Hr 98 F-100.5 F 91-107 20-20 129-149/75-81 95-95 GENERAL: The patient is awake, alert, and fully oriented, in no acute distress. HEAD: Normal with no signs of trauma. EYES: PERRL, extraocular movements intact, sclera anicteric, conjunctiva clear. No ptosis. ENT: Ears normal, nares patent, oropharynx clear without exudates, moist mucous membranes. NECK: Trachea midline, full range of motion, supple. LUNGS: Breath sounds equal, clear to auscultation bilaterally, no wheezes, no crackles, no accessory muscle use. HEART: Regular rate and rhythm, S1, S2 without murmur, rub or gallop. ABDOMEN: Soft, nontender, nondistended, normoactive bowel sounds, no guarding, no rebound, no hepatosplenomegaly, no masses. EXTREMITIES: 2+ pulses, warm, well-perfused, no edema. NEUROLOGICAL: Cranial nerves II through XII grossly intact. Normal speech, gait not observed. PSYCH: Normal mood, normal affect. SKIN: Warm, dry, normal turgor, no rashes or lesions noted Laboratory Results - last 24 hr 08/17/17 08/17/17 05:35 05:35 WBC 28.4 H RBC 3.71 Hgb 10.3 L Hct 30.7 L MCV 82.7 MCH 27.6 MCHC 33.4 RDW 16.6 H Plt Count 450 H MPV 7.0 L Sodium 138 Potassium 3.8 Chloride 102 Carbon Dioxide 28 Anion Gap 8 BUN 6 L Creatinine 0.4 L Random Glucose 110 H Calcium 7.9 L Active Medications Generic Name Dose Route Start Last Admin Trade Name Freq PRN Reason Stop Dose Admin Acetaminophen 650 mg 08/14/17 22:47 08/17/17 17:35 Tylenol - PO 650 mg Q6H PRN Administration FEVER Heparin Sodium (Porcine) 5,000 unit 08/14/17 23:30 08/18/17 06:12 Heparin - SQ 5,000 unit TID UZMA Administration Metronidazole 500 mg in 100 mls @ 100 mls/hr 08/15/17 12:15 08/18/17 02:31 Flagyl 500mg Premixed Ivpb - IVPB 100 mls/hr Q8H-IV UZMA Administration CEFTRIAXONE IN IS-OSM DEXTROSE 2 gm in 50 mls @ 200 mls/hr 08/15/17 12:30 09:29 Ceftriaxone 2 Gm-D5w Bag IVPB 200 mls/hr DAILY UZMA Administration ASSESSMENT/PLAN: This is a 47 yo f w/ PMH asthma and uterine fibroids who is being admitted for workup of fever and leukocytosis #Sepsis w/ unknown source, r/o C. Diff -UA does not show florid UTI (2+ blood secondary to menstruation) -CXR clear -RUQ US- hepatomegaly with coarse echotexture to liver -f/u stool studies -Ceftriaxone 2gm daily (day 2) -flagyl 500mg Q8H (day 2) -contacted patient's primary, who states that the patient had recent episode of leukocytosis. She was treated for a UTI. ESR at this time was elevated. AntiDSDNA, YE were both negative. -will consider consulting heme-onc if surgical consults find no source. #Hypokalemia - resolved #Abdominal mass on CT -Patient aware of large, preexisting leiomyoma. [facility] -ANIMAL NURSE consult -ordered CEA, Ca125, Ca 19-9 -Ordered transvaginal US -will f/u additional recommendations -surgery consult #Asthma -Duonebs PRN #FEN -no fluids indicated -replete lytes as discussed above -regular diet #Prophy -Heparin SQ 5ku TID #Dispo -admit to med surg <Sobeida Ybarra - Last Filed: 08/18/17 19:11> Physical Exam: Patient seen and examined Vital Signs Temperature 99.3 F 08/18/17 18:00 Pulse Rate 95 H 08/18/17 18:00 Respiratory Rate 20 08/18/17 18:00 Blood Pressure 146/80 08/18/17 18:00 O2 Sat by Pulse Oximetry (%) 95 08/18/17 09:00 CBCD WBC 25.5 K/mm3 (4.0-10.0) H 08/18/17 05:30 RBC 3.87 M/mm3 (3.60-5.2) 08/18/17 05:30 Hgb 10.3 GM/dL (10.7-15.3) L 08/18/17 05:30 Hct 31.9 % (32.4-45.2) L 08/18/17 05:30 MCV 82.4 fl (80-96) 08/18/17 05:30 MCHC 32.3 g/dl (32.0-36.0) 08/18/17 05:30 RDW 16.8 % (11.6-15.6) H 08/18/17 05:30 Plt Count 478 K/MM3 (134-434) H 08/18/17 05:30 MPV 6.9 fl (7.5-11.1) L 08/18/17 05:30 CMP Sodium 138 mmol/L (136-145) 08/18/17 05:30 Potassium 3.5 mmol/L (3.5-5.1) 08/18/17 05:30 Chloride 101 mmol/L (98-107) 08/18/17 05:30 Carbon Dioxide 29 mmol/L (21-32) 08/18/17 05:30 Anion Gap 8 (8-16) 08/18/17 05:30 BUN 7 mg/dL (7-18) 08/18/17 05:30 Creatinine 0.4 mg/dL (0.55-1.02) L 08/18/17 05:30 Creat Clearance w eGFR > 60 (>60) 08/18/17 05:30 Random Glucose 103 mg/dL (74-106) 08/18/17 05:30 Calcium 8.1 mg/dL (8.5-10.1) L 08/18/17 05:30 Total Bilirubin 0.2 mg/dL (0.2-1.0) D 08/18/17 05:30 AST 51 U/L (15-37) H 08/18/17 05:30 ALT 62 U/L (12-78) 08/18/17 05:30 Alkaline Phosphatase 186 U/L (45-117) H 08/18/17 05:30 Total Protein 6.1 g/dl (6.4-8.2) L 08/18/17 05:30 Albumin 2.1 g/dl (3.4-5.0) L 08/18/17 05:30 Current Medications Generic Name Dose Route Start Last Admin Trade Name Freq PRN Reason Stop Dose Admin Acetaminophen 650 mg 08/14/17 22:47 08/17/17 17:35 Tylenol - PO 650 mg Q6H PRN Administration FEVER Heparin Sodium (Porcine) 5,000 unit 08/14/17 23:30 08/18/17 17:20 Heparin - SQ Not Given TID UZMA Metronidazole 500 mg in 100 mls @ 100 mls/hr 08/15/17 12:15 08/18/17 17:19 Flagyl 500mg Premixed Ivpb - IVPB 100 mls/hr Q8H-IV UZMA Administration CEFTRIAXONE IN IS-OSM DEXTROSE 2 gm in 50 mls @ 200 mls/hr 08/15/17 12:30 13:49 Ceftriaxone 2 Gm-D5w Bag IVPB 200 mls/hr DAILY UZMA Administration Home Medications Medication Instructions Recorded NK [No Known Home Medication] 08/14/17 Urine Test Results Urine Color Brown 08/14/17 12:52 Urine Appearance Cloudy 08/14/17 12:52 Urine pH 5.5 (4.5-8) 08/14/17 12:52 Ur Specific [place] 1.020 (1.005-1.025) 08/14/17 12:52 Urine Protein 2+ (NEGATIVE) H 08/14/17 12:52 Urine Glucose (UA) Negative (NEGATIVE) 08/14/17 12:52 Urine Ketones Trace (NEGATIVE) 08/14/17 12:52 Urine Blood 3+ (NEGATIVE) H 08/14/17 12:52 Urine Nitrite Negative (NEGATIVE) 08/14/17 12:52 Urine Bilirubin 2+ (NEGATIVE) H 08/14/17 12:52 Ur Leukocyte Esterase Trace (NEGATIVE) H 08/14/17 12:52 Urine RBC >100 /hpf (0-3) 08/14/17 12:52 Urine WBC 20-30 (0-5) 08/14/17 12:52 Ur Epithelial Cells Few /HPF 08/14/17 12:52 Urine Mucus Few 08/14/17 12:52 A/P: Patient is a 47 y/o female presented with fever and chills x 10 days with recent Diagnosis of fibroid on 05/09/2017. # Acute leukocytosis with Sepsis picture with unknown cause . WBC is trending down ,continue current Antibiotic Flagyl and Rocephin IV. possible from large fibroid . OBGyn evaluated the patient , will go to OR in am around 2 pm for endometrial Bx. Discussed with . #Uterine Fibroid: had a MRI in [facility] in 05/09 which showed up 18 cm fibroid with L ovarian cyst. # Transaminitis: likely due to sepsis. improved DVT px keep the patient NPO after Midnight for Bx. Trend WBC. Visit type - Emergency Visit Emergency Visit: Yes ED Registration Date: 08/14/17 Care time: The patient presented to the Emergency Department on the above date and was hospitalized for further evaluation of their emergent condition. - New Patient This patient is new to me today: Yes Date on this admission: 08/18/17 - Critical Care Critical Care patient: No
[2017-08-18 07:02] LABS: HEMATOCRIT 31.9 % (32.4-45.2); HEMOGLOBIN 10.3 GM/dL (10.7-15.3); MCH 26.7 pg (25.7-33.7); MCHC 32.3 g/dl (32.0-36.0); MEAN CELL VOLUME 82.4 fl (80-96); MEAN PLT VOLUME 6.9 fl (7.5-11.1); PLATELET COUNT 478 K/MM3 (134-434); RBC 3.87 M/mm3 (3.60-5.2); RDW 16.8 % (11.6-15.6); WHITE BLOOD COUNT 25.5 K/mm3 (4.0-10.0)
[2017-08-18 07:05] LABS: ALBUMIN 2.1 g/dl (3.4-5.0); ANION GAP 8 (8-16); BLOOD UREA NITROGEN 7 mg/dL (7-18); CALCIUM 8.1 mg/dL (8.5-10.1); CHLORIDE 101 mmol/L (98-107); CO2 29 mmol/L (21-32); CREATININE 0.4 mg/dL (0.55-1.02); GLUCOSE,RANDOM 103 mg/dL (74-106); POTASSIUM 3.5 mmol/L (3.5-5.1); SGOT/AST 51 U/L (15-37); SGPT/ALT 62 U/L (12-78); SODIUM 138 mmol/L (136-145)
[2017-08-18 07:07] LABS: ALK PHOS 186 U/L (45-117); BILIRUBIN,TOTAL 0.2 mg/dL (0.2-1.0); TOT PROT 6.1 g/dl (6.4-8.2)
[2017-08-18 08:26] LABS: PLATELET ESTIMATE INCREASED
--- NOTE | 2017-08-18 10:51 | CONSULT ---
- Consultation REQUESTING PROVIDER: Awa BASHIR CONSULT REQUEST: We have been asked to surgically evaluate this patient for intra abdominal pathology as a source of sepsis PCP:Sobeida Ybarra HISTORY OF PRESENT ILLNESS: EBONIE who is a 47 y/o female admitted for sepsis w/ a known enlarged uterus and uterine fibroid; she has no abdominal pain and/or nausea and/or vomiting; she denies any other GI problem; w/u has been done and is ongoing; she is eating and moving her bowels and passing gas. NOC PMHx: none PSHx: none Home Medications Medication Instructions Recorded NK [No Known Home Medication] 08/14/17 Allergies Allergy/AdvReac Type Severity Reaction Status Date / Time No Known Allergies Allergy Verified 08/14/17 12:24 PHYSICAL EXAM: GENERAL: Awake, alert, and fully oriented, in no acute distress. HEAD: Normal with no signs of trauma. EYES: sclera anicteric, conjunctiva clear. NECK: supple; trachea midline; no adenopathy ABDOMEN: Soft, obese and nontender, enlarged myomatous uterus palpable; not distended, normoactive bowel sounds, no guarding, no rebound, no hernias. MUSCULOSKELETAL: Normal ROM at all joints. No bony deformities or tenderness. No CVA tenderness. UPPER EXTREMITIES: 2+ pulses, warm, well-perfused. No cyanosis. Cap refill <2 seconds. No peripheral edema. LOWER EXTREMITIES: 2+ pulses, warm, well-perfused. No calf tenderness. No peripheral edema. NEUROLOGICAL: Normal speech, gait not observed. PSYCH: Cooperative. Good eye contact. Appropriate mood and affect. SKIN: Warm, dry, normal turgor, no rashes or lesions noted. Vital Signs Temperature 98.4 F 08/18/17 05:55 Pulse Rate 100 H 08/18/17 05:55 Respiratory Rate 20 08/18/17 05:55 Blood Pressure 134/81 08/18/17 05:55 O2 Sat by Pulse Oximetry (%) 95 08/17/17 21:00 Lab Results WBC 25.5 K/mm3 (4.0-10.0) H 08/18/17 05:30 RBC 3.87 M/mm3 (3.60-5.2) 08/18/17 05:30 Hgb 10.3 GM/dL (10.7-15.3) L 08/18/17 05:30 Hct 31.9 % (32.4-45.2) L 08/18/17 05:30 MCV 82.4 fl (80-96) 08/18/17 05:30 MCHC 32.3 g/dl (32.0-36.0) 08/18/17 05:30 RDW 16.8 % (11.6-15.6) H 08/18/17 05:30 Plt Count 478 K/MM3 (134-434) H 08/18/17 05:30 Sodium 138 mmol/L (136-145) 08/18/17 05:30 Potassium 3.5 mmol/L (3.5-5.1) 08/18/17 05:30 Chloride 101 mmol/L (98-107) 08/18/17 05:30 Carbon Dioxide 29 mmol/L (21-32) 08/18/17 05:30 Anion Gap 8 (8-16) 08/18/17 05:30 BUN 7 mg/dL (7-18) 08/18/17 05:30 Creatinine 0.4 mg/dL (0.55-1.02) L 08/18/17 05:30 Random Glucose 103 mg/dL (74-106) 08/18/17 05:30 Calcium 8.1 mg/dL (8.5-10.1) L 08/18/17 05:30 INR 1.28 (0.82-1.09) H 08/15/17 06:00 w/u to date and imaging studies reviewed IMP: No evidence of intrabdominal pathology as a source of her sepsis; no evidence of an acute surgical abdomen. PLAN: Continue present tx.; I have nothing to offer from a General Surgery perspective; suggest ROOMS DIRECTOR f/u. Saravanan Geller MD FACS Visit type - Case Type Case Type: ED Admission - Emergency Emergency Visit: Yes ED Registration Date: 08/14/17 Care time: The patient presented to the Emergency Department on the above date and was hospitalized for further evaluation of their emergent condition. - New patient This patient is new to me today: Yes Date on this admission: 08/18/17 - Critical Care Critical Care patient: No
--- NOTE | 2017-08-18 13:14 | PN ---
Progress Note (short form) - Note Progress Note: fevers resolved diarrhea resolved Vital Signs Period Temp Pulse Resp BP Sys/Solares Pulse Ox Last 24 Hr 98.4 F-100.5 F 91-107 20-20 129-149/74-81 95-95 cor-rrr lungs clear abd firm, palpable mass ext no edema CBC, BMP 08/18/17 05:30 08/18/17 05:30 Microbiology 08/16/17 16:07 Stool Gram Stain - Final 08/16/17 16:07 Stool Salmonella/Shigella Culture - Preliminary 08/16/17 16:07 Stool Yersinia Culture - Preliminary 08/16/17 16:07 Stool Vibrio Culture - Final NO GROWTH OF VIBRIO SPECIES OBTAINED 08/16/17 16:07 Stool Escherichia coli 0157 Culture - Final NO GROWTH OF E COLI 0157 OBTAINED 08/16/17 16:06 Stool Clostridium difficile Antigen (WANDA) - Final 08/16/17 16:06 Stool Clostridium difficile Toxin Assay - Final 08/14/17 12:45 Blood - Peripheral Venous Blood Culture - Preliminary NO GROWTH OBTAINED AFTER 72 HOURS, INCUBATION TO CONTINUE FOR 2 DAYS. 08/14/17 13:00 Blood - Peripheral Venous Blood Culture - Preliminary NO GROWTH OBTAINED AFTER 72 HOURS, INCUBATION TO CONTINUE FOR 2 DAYS. 08/14/17 12:52 Urine - Urine Clean Catch Urine Culture - Final NO GROWTH OBTAINED 08/14/17 13:00 Nasopharyngeal Swab Influenza Types A,B Antigen (WANDA) - Final 08/14/17 13:00 Nasopharyngeal Swab - Final Laboratory Tests 08/16/17 08/16/17 06:05 12:30 ESR 101 H C-Reactive Protein 16.4 H a/p Fevers resolving/leukocytosis improving nontoxic agree with rocephin/flagyl stool studies negative diarrhea has resolved f/u with gyne-fevers/leukocytosis secondary to degenerating fibroid? Problem List - Problems (1) FUO (fever of unknown origin) Code(s): R50.9 - FEVER, UNSPECIFIED (2) Elevated WBC count Code(s): D72.829 - ELEVATED WHITE BLOOD CELL COUNT, UNSPECIFIED Qualifiers: Leukocytosis type: unspecified Qualified Code(s): D72.829 - Elevated white blood cell count, unspecified
[2017-08-18] MEDS: CEFTRIAXONE 2 GM-D5W BAG 2 GM/50 ML BAG IVPB SCH (13:49)
--- NOTE | 2017-08-18 14:45 | PN ---
Progress Note (short form) - Note Progress Note: WBC cnt slightly trending down; afebrile c diff negative large fibroid with possible malignant degeneration ROOFING SUPERINTENDENT consulted; possible endometrial biopsy in the am; hold heparin in am; npo overnight Heme/onc consulted
--- NOTE | 2017-08-18 14:55 | CONSULT ---
Consult Consult Specialty:: Hematology - History of Present Illness History of Present Illness: 47 yo f w/ PMH asthma and uterine fibroids who is being admitted for workup of fever and leukocytosis found to have a Uterine mass/fibroid uterus Seen by KNITTING MACHINE FIXER Hematology consulted for elevated White cells Patient seen and examined. Feels OK, anxious, tearful. Denies any recent weight loss - Past Medical History ...LMP: 08/14/17 ...: No - Past Surgical History Past Surgical History: Yes: Additional Surgical History: Myomectomy - Alcohol/Substance Use Hx Alcohol Use: No History of Substance Use: reports: None - Smoking History Smoking history: Never smoked Home Medications - Allergies Allergies/Adverse Reactions: Allergies Allergy/AdvReac Type Severity Reaction Status Date / Time No Known Allergies Allergy Verified 08/14/17 12:24 - Home Medications Home Medications: Ambulatory Orders NK [No Known Home Medication] 08/14/17 Review of Systems - Review of Systems Constitutional: denies: Chills, Diaphoresis, Fever, Lethargy, Loss of Appetite Eyes: denies: Blind Spots HENT: denies: Difficult Swallowing Neck: denies: Decreased ROM Cardiovascular: denies: Chest Pain Respiratory: denies: Cough, Exercise Intolerance, Hemoptysis Gastrointestinal: reports: Abdominal Pain, Bloating. denies: Nausea, Rectal Bleeding, Vomiting Integumentary: reports: No Symptoms Neurological: reports: No Symptoms Endocrine: reports: No Symptoms Physical Exam Vital Signs: Vital Signs Temperature 98.4 F 08/18/17 14:00 Pulse Rate 93 H 08/18/17 14:00 Respiratory Rate 20 08/18/17 14:00 Blood Pressure 123/61 08/18/17 14:00 O2 Sat by Pulse Oximetry (%) 95 08/18/17 09:00 Constitutional: Yes: Anxious Eyes: Yes: Conjunctiva Clear HENT: Yes: Atraumatic, Normocephalic Neck: Yes: Supple, Trachea Midline Cardiovascular: Yes: Regular Rate and Rhythm Respiratory: Yes: Regular, CTA Bilaterally Gastrointestinal: Yes: Abdomen, Obese, Ascites, Distention Musculoskeletal: Yes: WNL Edema: Yes Edema: LLE: 1+, RLE: 1+ Integumentary: Yes: WNL Neurological: Yes: Alert, Oriented Psychiatric: Yes: Other (tearful) Labs: CBC, BMP 08/18/17 05:30 08/18/17 05:30 Imaging - Results Cat Scan: Report Reviewed Assessment/Plan Leucocytosis Reactive likely for flow. Anemia Likely ACD/ACI Will order regular iron labs Mass: KNITTING MACHINE FIXER f/u await pathology f/u tumor markers
[2017-08-18] MEDS: ACETAMINOPHEN 325 MG TABLET (FP) PO PRN (20:34)
[2017-08-19 07:23] LABS: BASO % 0.5 % (0-2.0); EOS % 1.8 % (0-4.5); HEMATOCRIT 33.1 % (32.4-45.2); HEMOGLOBIN 10.6 GM/dL (10.7-15.3); LYMPH % 7.3 % (8-40); MCH 26.8 pg (25.7-33.7); MCHC 32.1 g/dl (32.0-36.0); MEAN CELL VOLUME 83.3 fl (80-96); MEAN PLT VOLUME 6.7 fl (7.5-11.1); NEUT % 86.4 % (42.8-82.8); PLATELET COUNT 528 K/MM3 (134-434); RBC 3.97 M/mm3 (3.60-5.2); RDW 16.6 % (11.6-15.6)
[2017-08-19 07:46] LABS: ALBUMIN 2.2 g/dl (3.4-5.0); ANION GAP 7 (8-16); BLOOD UREA NITROGEN 8 mg/dL (7-18); CALCIUM 7.9 mg/dL (8.5-10.1); CHLORIDE 101 mmol/L (98-107); CO2 29 mmol/L (21-32); GLUCOSE,RANDOM 99 mg/dL (74-106); POTASSIUM 3.8 mmol/L (3.5-5.1); SGOT/AST 42 U/L (15-37); SODIUM 137 mmol/L (136-145)
[2017-08-19 07:51] LABS: ALK PHOS 176 U/L (45-117); BILIRUBIN,TOTAL 0.1 mg/dL (0.2-1.0); CREATININE 0.5 mg/dL (0.55-1.02); INR 1.27 (0.82-1.09); LDH 306 U/L (84-246); PROTHROMBIN TIME (PATIENT) 14.4 SEC (9.98-11.88); SGPT/ALT 60 U/L (12-78); TOT PROT 6.3 g/dl (6.4-8.2)
[2017-08-19 07:53] LABS: ACTIVATED PTT 28.8 SECONDS (26.9-34.4)
[2017-08-19 08:09] LABS: CARCINOEMBRYONIC ANTIGEN 2.8 ng/mL (0.0-4.7)
--- NOTE | 2017-08-19 08:41 | PN ---
Progress Note (short form) - Note Progress Note: 47 yo Para 2 with enlarged uterus associated with a large myoma, seen and evaluated. Transvaginal sonogram and tumor markers reviewed. There's evidence of endometrial echo complex. Patient is pre op for D&C Hysteroscopy. A/P : Leiomyomatous uterus Abnormal sonogram R/O endometrial carcinoma Pre op for D&C Hysteroscopy Consent NPO Anesthesia to see patient Problem List - Problems (1) Abdominal mass Code(s): R19.00 - INTRA-ABD AND PELVIC SWELLING, MASS AND LUMP, UNSP SITE (2) Fibroid uterus Code(s): D25.9 - LEIOMYOMA OF UTERUS, UNSPECIFIED
[2017-08-19] MEDS: CEFTRIAXONE 2 GM-D5W BAG 2 GM/50 ML BAG IVPB SCH (10:09)
--- NOTE | 2017-08-19 12:57 | PN ---
<Gerard Painter - Last Filed: 08/19/17 14:49> Physical Exam: SUBJECTIVE: Patient seen and examined at baseline. Patient has no new complaints. Diarrhea resolved. Patient for endometrial biopsy today. OBJECTIVE: Vital Signs Period Temp Pulse Resp BP Sys/Solares Pulse Ox Last 24 Hr 98.2 F-100.1 F 84-95 20-20 123-146/61-82 95 GENERAL: The patient is awake, alert, and fully oriented, in no acute distress. NECK: Trachea midline, full range of motion, supple. LUNGS: Breath sounds equal, clear to auscultation bilaterally, no wheezes, no crackles, no accessory muscle use. HEART: Regular rate and rhythm, S1, S2 without murmur, rub or gallop. ABDOMEN: Soft, nontender, obese, normoactive bowel sounds, no guarding, no rebound, no hepatosplenomegaly, no masses. EXTREMITIES: 2+ pulses, warm, well-perfused, no edema. NEUROLOGICAL: Cranial nerves II through X grossly intact. Normal speech, gait not observed. SKIN: Warm, dry, normal turgor, no rashes or lesions noted Laboratory Results - last 24 hr 08/16/17 08/18/17 08/19/17 16:00 05:30 06:30 WBC RBC Hgb Hct MCV MCH MCHC RDW Plt Count MPV Neutrophils % Lymphocytes % Monocytes % Eosinophils % Basophils % Retic Count 1.40 PT with INR INR PTT (Actin FS) Sodium Potassium Chloride Carbon Dioxide Anion Gap BUN Creatinine Creat Clearance w eGFR Random Glucose Calcium Ferritin Total Bilirubin AST ALT Alkaline Phosphatase LD Total Total Protein Albumin Carcinoembryonic Ag 2.8 CA 19-9 Antigen 8 CA 125 Antigen 32.4 Stool O & P Wet [place] & P Permanent Slide Final report 08/19/17 08/19/17 08/19/17 06:30 06:30 06:30 WBC 26.0 H RBC 3.97 Hgb 10.6 L Hct 33.1 MCV 83.3 MCH 26.8 MCHC 32.1 RDW 16.6 H Plt Count 528 H MPV 6.7 L Neutrophils % 86.4 H Lymphocytes % 7.3 L Monocytes % 4.0 Eosinophils % 1.8 Basophils % 0.5 Retic Count PT with INR 14.40 H INR 1.27 H PTT (Actin FS) 28.8 Sodium 137 Potassium 3.8 Chloride 101 Carbon Dioxide 29 Anion Gap 7 L BUN 8 Creatinine 0.5 L Creat Clearance w eGFR > 60 Random Glucose 99 Calcium 7.9 L Ferritin 282.412 Total Bilirubin 0.1 L D AST 42 H ALT 60 Alkaline Phosphatase 176 H LD Total 306 H Total Protein 6.3 L Albumin 2.2 L Carcinoembryonic Ag CA 19-9 Antigen CA 125 Antigen Stool O & P Wet [place] P Permanent Slide Active Medications Generic Name Dose Route Start Last Admin Trade Name Mira PRN Reason Stop Dose Admin Acetaminophen 650 mg 08/14/17 22:47 08/18/17 20:34 Tylenol - PO 650 mg Q6H PRN Administration FEVER Heparin Sodium (Porcine) 5,000 unit 08/14/17 23:30 08/18/17 22:12 Heparin - SQ 5,000 unit TID UZMA Administration Metronidazole 500 mg in 100 mls @ 100 mls/hr 08/15/17 12:15 08/19/17 10:09 Flagyl 500mg Premixed Ivpb - IVPB 100 mls/hr Q8H-IV UZMA Administration CEFTRIAXONE IN IS-OSM DEXTROSE 2 gm in 50 mls @ 200 mls/hr 08/15/17 12:30 10:09 Ceftriaxone 2 Gm-D5w Bag IVPB 200 mls/hr DAILY UZMA Administration ASSESSMENT/PLAN: This is a 47 yo f w/ PMH asthma and uterine fibroids who is being admitted for workup of fever and leukocytosis #Sepsis w/ unknown source; possibly due to large leiomyoma -RUQ US- hepatomegaly with coarse echotexture to liver -f/u stool studies -Ceftriaxone 2gm daily (day 5) -flagyl 500mg Q8H (day 5) -per patient's primary, ESR was elevated in May. AntiDSDNA, YE were both negative. -will consider consulting heme-onc if surgical consults find no source. #Hypokalemia - resolved #Abdominal mass on CT -Patient aware of large, preexisting leiomyoma. Follows w/ MANUFACTURING DEVELOPMENT ENGINEER at [facility] -MANUFACTURING DEVELOPMENT ENGINEER consult -For endometrial biopsy today. will f/u pathology -f/u CEA, Ca125, Ca 19-9 -transvaginal US shows large mass originating from uterus -will f/u additional recommendations -surgery consult: no general surgery intervention at this time. #Asthma -Duonebs PRN #FEN -no fluids indicated -replete lytes as discussed above -regular diet #Prophy -scds #Dispo -admit to med surg Visit type - Emergency Visit Emergency Visit: Yes ED Registration Date: 08/14/17 Care time: The patient presented to the Emergency Department on the above date and was hospitalized for further evaluation of their emergent condition. - New Patient This patient is new to me today: No - Critical Care Critical Care patient: No <JaxonmarionSobeida de los santos - Last Filed: 08/19/17 18:19> Physical Exam: Patient is going to OR for endometrial Bx by . Pathology is pending. Vital Signs Temperature 99.4 F 08/19/17 16:30 Pulse Rate 90 08/19/17 16:30 Respiratory Rate 26 H 08/19/17 16:30 Blood Pressure 130/60 08/19/17 16:30 O2 Sat by Pulse Oximetry (%) 95 08/19/17 16:30 CBCD WBC 26.0 K/mm3 (4.0-10.0) H 08/19/17 06:30 RBC 3.97 M/mm3 (3.60-5.2) 08/19/17 06:30 Hgb 10.6 GM/dL (10.7-15.3) L 08/19/17 06:30 Hct 33.1 % (32.4-45.2) 08/19/17 06:30 MCV 83.3 fl (80-96) 08/19/17 06:30 MCHC 32.1 g/dl (32.0-36.0) 08/19/17 06:30 RDW 16.6 % (11.6-15.6) H 08/19/17 06:30 Plt Count 528 K/MM3 (134-434) H 08/19/17 06:30 MPV 6.7 fl (7.5-11.1) L 08/19/17 06:30 CMP Sodium 137 mmol/L (136-145) 08/19/17 06:30 Potassium 3.8 mmol/L (3.5-5.1) 08/19/17 06:30 Chloride 101 mmol/L (98-107) 08/19/17 06:30 Carbon Dioxide 29 mmol/L (21-32) 08/19/17 06:30 Anion Gap 7 (8-16) L 08/19/17 06:30 BUN 8 mg/dL (7-18) 08/19/17 06:30 Creatinine 0.5 mg/dL (0.55-1.02) L 08/19/17 06:30 Creat Clearance w eGFR > 60 (>60) 08/19/17 06:30 Random Glucose 99 mg/dL (74-106) 08/19/17 06:30 Calcium 7.9 mg/dL (8.5-10.1) L 08/19/17 06:30 Total Bilirubin 0.1 mg/dL (0.2-1.0) L D 08/19/17 06:30 AST 42 U/L (15-37) H 08/19/17 06:30 ALT 60 U/L (12-78) 08/19/17 06:30 Alkaline Phosphatase 176 U/L (45-117) H 08/19/17 06:30 Total Protein 6.3 g/dl (6.4-8.2) L 08/19/17 06:30 Albumin 2.2 g/dl (3.4-5.0) L 08/19/17 06:30 Current Medications Generic Name Dose Route Start Last Admin Trade Name Freq PRN Reason Stop Dose Admin Acetaminophen 650 mg 08/19/17 16:59 Tylenol - PO Q6H PRN FEVER Heparin Sodium (Porcine) 5,000 unit 08/19/17 22:00 Heparin - SQ TID UZMA Ceftriaxone Sodium 2 gm/ 100 mls @ 200 mls/hr 08/20/17 10:00 Dextrose IVPB DAILY UZMA Metronidazole 500 mg in 100 mls @ 100 mls/hr 08/19/17 18:00 Flagyl 500mg Premixed Ivpb - IVPB Q8H-IV UZMA Sodium Chloride 1,000 mls @ 100 mls/hr 08/19/17 16:59 Normal Saline - IV ASDIR UZMA Ondansetron HCl 4 mg 08/19/17 16:59 Zofran Injection IVPUSH Q6H PRN NAUSEA AND/OR VOMITING Home Medications Medication Instructions Recorded NK [No Known Home Medication] 08/14/17
[2017-08-19] MEDS ORDERED: SODIUM CHLORIDE 1,000 ML IV SCH ×2 (13:30→16:59)
[2017-08-19] MEDS ORDERED: MIDAZOLAM HCL 2 MG/2 ML SINGLE DOSE VIAL ONE ×2 (14:41→14:57)
[2017-08-19] MEDS ORDERED: BUPIVACAINE 0.75% IN DEXTROSE/PF 2ML AMPULE NR ONE (14:47)
--- NOTE | 2017-08-19 15:17 | OP ---
Operative Note - Note: Operative Date: 08/19/17 Pre-Operative Diagnosis: Pelvic mass / Leiomyomatous uterus Operation: D&C Hysteroscopy Post-Operative Diagnosis: Same as Pre-op Surgeon: Naomy Gonzalez Anesthesia: Spinal Specimens Removed: Endometrial curettings Estimated Blood Loss (mls): 5 Operative Report Dictated: Yes
--- NOTE | 2017-08-19 15:30 | OP ---
DATE OF OPERATION: 08/19/2017 PREOPERATIVE DIAGNOSIS: Pelvic mass. POSTOPERATIVE DIAGNOSIS: Pelvic mass. PROCEDURE PERFORMED: Dilatation and curettage, hysteroscopy. SURGEON: Naomy Gonzalez M.D. ANESTHESIA: Spinal. COMPLICATIONS: None. ESTIMATED BLOOD LOSS: 5 mL. DESCRIPTION OF PROCEDURE: The patient was taken to the operating room, where spinal anesthesia was administered. The patient was then placed in the lithotomy position. She was then prepped and draped in the proper sterile fashion. A weighted speculum was placed in the vagina. The anterior lip of the cervix was grasped with a single-tooth tenaculum. The cervical os was then dilated with Fishman dilators. Sharp curettage was then performed. When finished, the instruments were removed. The patient was taken out of the lithotomy position. She was taken to the PACU in stable condition. PATHOLOGY: Endometrial curettings. Kolby BAUTISTA/[id number]
[2017-08-19] MEDS ORDERED: ONDANSETRON 4 MG/2 ML VIAL IVPUSH PRN ×2 (15:31→16:59)
[2017-08-19] MEDS ORDERED: LACTATED RINGERS SOLUTION 1,000 ML IV SCH (15:45)
--- NOTE | 2017-08-19 17:34 | PN ---
Progress Note (short form) - Note Progress Note: s/p endometrial biopsy today fevers resolved diarrhea resolved Vital Signs Period Temp Pulse Resp BP Sys/Solares Pulse Ox Last 24 Hr 94 F-100.2 F 84-98 - 120-146/60-82 95-100 cor-rrr lungs decreased bs at bases abd firm, nt ext no edema CBC, BMP 08/19/17 06:30 08/19/17 06:30 Microbiology 08/16/17 16:07 Stool Gram Stain - Final 08/16/17 16:07 Stool Salmonella/Shigella Culture - Final 08/16/17 16:07 Stool Campylobacter Culture - Final NO GROWTH OF CAMPYLOBACTER SPECIES OBTAINED 08/16/17 16:07 Stool Yersinia Culture - Final 08/16/17 16:07 Stool Vibrio Culture - Final NO GROWTH OF VIBRIO SPECIES OBTAINED 08/16/17 16:07 Stool Escherichia coli 0157 Culture - Final NO GROWTH OF E COLI 0157 OBTAINED 08/14/17 12:45 Blood - Peripheral Venous Blood Culture - Final NO GROWTH AFTER 5 DAYS INCUBATION 08/14/17 13:00 Blood - Peripheral Venous Blood Culture - Final NO GROWTH AFTER 5 DAYS INCUBATION 08/16/17 16:06 Stool Clostridium difficile Antigen (WANDA) - Final 08/16/17 16:06 Stool Clostridium difficile Toxin Assay - Final 08/14/17 12:52 Urine - Urine Clean Catch Urine Culture - Final NO GROWTH OBTAINED 08/14/17 13:00 Nasopharyngeal Swab Influenza Types A,B Antigen (WANDA) - Final 08/14/17 13:00 Nasopharyngeal Swab - Final Laboratory Tests 08/16/17 08/16/17 06:05 12:30 ESR 101 H C-Reactive Protein 16.4 H a/p Fevers resolving/leukocytosis improving nontoxic continue rocephin/flagyl stool studies negative diarrhea has resolved s/p biopsy- ?malignancy with leukemoid reaction ?leukomoid reaction?- hematology consult noted Problem List - Problems (1) FUO (fever of unknown origin) Code(s): R50.9 - FEVER, UNSPECIFIED (2) Elevated WBC count Code(s): D72.829 - ELEVATED WHITE BLOOD CELL COUNT, UNSPECIFIED Qualifiers: Leukocytosis type: unspecified Qualified Code(s): D72.829 - Elevated white blood cell count, unspecified
[2017-08-19] MEDS: ACETAMINOPHEN 325 MG TABLET (FP) PO PRN (22:16)
[2017-08-20] MEDS: ACETAMINOPHEN 325 MG TABLET (FP) PO PRN ×2 (07:07→14:17)
[2017-08-20] MEDS: HEPARIN NA (PORCINE) 5,000 UNITS/ML 1ML VIAL SQ SCH ×3 (07:07→22:21)
[2017-08-20 07:57] LABS: HEMATOCRIT 33.1 % (32.4-45.2); HEMOGLOBIN 10.5 GM/dL (10.7-15.3); MCH 26.7 pg (25.7-33.7); MCHC 31.9 g/dl (32.0-36.0); MEAN CELL VOLUME 83.7 fl (80-96); MEAN PLT VOLUME 6.9 fl (7.5-11.1); PLATELET COUNT 551 K/MM3 (134-434); RBC 3.95 M/mm3 (3.60-5.2); RDW 16.7 % (11.6-15.6)
[2017-08-20 08:09] LABS: SERUM IRON SATURATION 11 % (15-55); TOTAL IRON BINDING CAPACITY 217 ug/dL (250-450); UIBC 193 ug/dL (131-425)
[2017-08-20 08:26] LABS: ANION GAP 11 (8-16); BLOOD UREA NITROGEN 8 mg/dL (7-18); CALCIUM 8.5 mg/dL (8.5-10.1); CHLORIDE 101 mmol/L (98-107); CO2 28 mmol/L (21-32); CREATININE 0.4 mg/dL (0.55-1.02); GLUCOSE,RANDOM 97 mg/dL (74-106); POTASSIUM 4.3 mmol/L (3.5-5.1); SODIUM 140 mmol/L (136-145)
--- NOTE | 2017-08-20 09:18 | PN ---
Progress Note (short form) - Note Progress Note: POD #1 - s/p D&C/hysteroscopy under spinal anesthesia. VSS. Pt. doing well, walking about the room without complaints. No apparent anesthetic complications noted. Continue current care.
[2017-08-20] MEDS ORDERED: CEFTRIAXONE 2 GM in DEXTROSE 5%-WATER - 100 ML IVPB SCH (10:00)
--- NOTE | 2017-08-20 12:12 | PN ---
Teaching Attending Note Name of Resident: Iwona Moreno ATTENDING PHYSICIAN STATEMENT I saw and evaluated the patient. I reviewed the resident's note and discussed the case with the resident. I agree with the resident's findings and plan as documented. SUBJECTIVE: Patient is feeling better, but continues to have high WBC. OBJECTIVE: Vital Signs Temperature 98.9 F 08/20/17 09:00 Pulse Rate 97 H 08/20/17 09:00 Respiratory Rate 19 08/20/17 09:00 Blood Pressure 126/73 08/20/17 09:00 O2 Sat by Pulse Oximetry (%) 95 08/20/17 09:00 CBCD WBC 25.0 K/mm3 (4.0-10.0) H 08/20/17 07:00 RBC 3.95 M/mm3 (3.60-5.2) 08/20/17 07:00 Hgb 10.5 GM/dL (10.7-15.3) L 08/20/17 07:00 Hct 33.1 % (32.4-45.2) 08/20/17 07:00 MCV 83.7 fl (80-96) 08/20/17 07:00 MCHC 31.9 g/dl (32.0-36.0) L 08/20/17 07:00 RDW 16.7 % (11.6-15.6) H 08/20/17 07:00 Plt Count 551 K/MM3 (134-434) H 08/20/17 07:00 MPV 6.9 fl (7.5-11.1) L 08/20/17 07:00 CMP Sodium 140 mmol/L (136-145) 08/20/17 07:00 Potassium 4.3 mmol/L (3.5-5.1) 08/20/17 07:00 Chloride 101 mmol/L (98-107) 08/20/17 07:00 Carbon Dioxide 28 mmol/L (21-32) 08/20/17 07:00 Anion Gap 11 (8-16) 08/20/17 07:00 BUN 8 mg/dL (7-18) 08/20/17 07:00 Creatinine 0.4 mg/dL (0.55-1.02) L 08/20/17 07:00 Creat Clearance w eGFR > 60 (>60) 08/19/17 06:30 Random Glucose 97 mg/dL (74-106) 08/20/17 07:00 Calcium 8.5 mg/dL (8.5-10.1) 08/20/17 07:00 Total Bilirubin 0.1 mg/dL (0.2-1.0) L D 08/19/17 06:30 AST 42 U/L (15-37) H 08/19/17 06:30 ALT 60 U/L (12-78) 08/19/17 06:30 Alkaline Phosphatase 176 U/L (45-117) H 08/19/17 06:30 Total Protein 6.3 g/dl (6.4-8.2) L 08/19/17 06:30 Albumin 2.2 g/dl (3.4-5.0) L 08/19/17 06:30 Current Medications Generic Name Dose Route Start Last Admin Trade Name Freq PRN Reason Stop Dose Admin Acetaminophen 650 mg 08/19/17 16:59 08/20/17 07:07 Tylenol - PO 650 mg Q6H PRN Administration FEVER Heparin Sodium (Porcine) 5,000 unit 08/19/17 22:00 08/20/17 07:07 Heparin - SQ 5,000 unit TID UZMA Administration Ceftriaxone Sodium 2 gm/ 100 mls @ 200 mls/hr 08/20/17 10:00 08/20/17 09:49 Dextrose IVPB 200 mls/hr DAILY UZMA Administration Metronidazole 500 mg in 100 mls @ 100 mls/hr 08/19/17 18:00 08/20/17 09:50 Flagyl 500mg Premixed Ivpb - IVPB 100 mls/hr Q8H-IV UZMA Administration Ondansetron HCl 4 mg 08/19/17 16:59 Zofran Injection IVPUSH Q6H PRN NAUSEA AND/OR VOMITING Home Medications Medication Instructions Recorded NK [No Known Home Medication] 08/14/17 Chest: CTABL Heart: S1s2 positive. ASSESSMENT AND PLAN: Patient continues to have Leukocytosis but trending down, fever of 100.8 today ; sepsis with unknown origin. will continue IV antibiotic.Discussed with ID and discussed with OBGYN will order duplex of LE to r/o DVT Endometrial Bx is pending. waiting for pathology report
--- NOTE | 2017-08-20 14:59 | PN ---
Progress Note (short form) - Note Progress Note: s/p endometrial biopsy yesterday temp to 100.8 feels well Vital Signs Period Temp Pulse Resp BP Sys/Solares Pulse Ox Last 24 Hr 94 F-100.8 F 85-97 109-134/48-83 95-100 cor-rrr lungs decreased bs at bases abd soft,nt, +mass ext no edema CBC, BMP 08/20/17 07:00 08/20/17 07:00 Laboratory Tests 08/16/17 08/16/17 06:05 12:30 ESR 101 H C-Reactive Protein 16.4 H Microbiology 08/16/17 16:07 Stool Gram Stain - Final 08/16/17 16:07 Stool Salmonella/Shigella Culture - Final 08/16/17 16:07 Stool Campylobacter Culture - Final NO GROWTH OF CAMPYLOBACTER SPECIES OBTAINED 08/16/17 16:07 Stool Yersinia Culture - Final 08/16/17 16:07 Stool Vibrio Culture - Final NO GROWTH OF VIBRIO SPECIES OBTAINED 08/16/17 16:07 Stool Escherichia coli 0157 Culture - Final NO GROWTH OF E COLI 0157 OBTAINED 08/14/17 12:45 Blood - Peripheral Venous Blood Culture - Final NO GROWTH AFTER 5 DAYS INCUBATION 08/14/17 13:00 Blood - Peripheral Venous Blood Culture - Final NO GROWTH AFTER 5 DAYS INCUBATION 08/16/17 16:06 Stool Clostridium difficile Antigen (WANDA) - Final 08/16/17 16:06 Stool Clostridium difficile Toxin Assay - Final 08/14/17 12:52 Urine - Urine Clean Catch Urine Culture - Final NO GROWTH OBTAINED 08/14/17 13:00 Nasopharyngeal Swab Influenza Types A,B Antigen (WANDA) - Final 08/14/17 13:00 Nasopharyngeal Swab - Final a/p Fevers intermittent/leukocytosis improving nontoxic continue rocephin/flagyl duplex legs today stool studies negative diarrhea has resolved s/p biopsy- ?malignancy with leukemoid reaction ?leukomoid reaction?- hematology consult noted Problem List - Problems (1) FUO (fever of unknown origin) Code(s): R50.9 - FEVER, UNSPECIFIED (2) Elevated WBC count Code(s): D72.829 - ELEVATED WHITE BLOOD CELL COUNT, UNSPECIFIED Qualifiers: Leukocytosis type: unspecified Qualified Code(s): D72.829 - Elevated white blood cell count, unspecified
--- NOTE | 2017-08-20 15:11 | PN ---
Physical Exam: SUBJECTIVE: Patient seen and examined no new complaints. Intermittent fevers. Denies chills, abdominal pain, dysuria, diarrhea. OBJECTIVE: Vital Signs Period Temp Pulse Resp BP Sys/Solares Pulse Ox Last 24 Hr 94 F-100.8 F 85-97 18- 109-134/48-83 95-100 GENERAL: The patient is obese, awake, alert, and fully oriented, in no acute distress. LUNGS: decreased Breath sounds, clear to auscultation bilaterally, no wheezes, no crackles, no accessory muscle use. HEART: Regular rate and rhythm, S1, S2 without murmur, rub or gallop. ABDOMEN: obese, soft, non tender, bs+, with large pelvic mass. EXTREMITIES: 2+ pulses, warm, well-perfused, no edema. Laboratory Results - last 24 hr 08/19/17 08/19/17 08/20/17 06:30 06:30 07:00 WBC 25.0 H RBC 3.95 Hgb 10.5 L Hct 33.1 MCV 83.7 MCH 26.7 MCHC 31.9 L RDW 16.7 H Plt Count 551 H MPV 6.9 L Sodium Potassium Chloride Carbon Dioxide Anion Gap BUN Creatinine Random Glucose Calcium Iron 24 L TIBC 217 L Iron Saturation 11 L Erythropoietin 23.7 H 08/20/17 07:00 WBC RBC Hgb Hct MCV MCH MCHC RDW Plt Count MPV Sodium 140 Potassium 4.3 Chloride 101 Carbon Dioxide 28 Anion Gap 11 BUN 8 Creatinine 0.4 L Random Glucose 97 Calcium 8.5 Iron TIBC Iron Saturation Erythropoietin Active Medications Generic Name Dose Route Start Last Admin Trade Name Freq PRN Reason Stop Dose Admin Acetaminophen 650 mg 08/19/17 16:59 08/20/17 14:17 Tylenol - PO 650 mg Q6H PRN Administration FEVER Heparin Sodium (Porcine) 5,000 unit 08/19/17 22:00 08/20/17 14:19 Heparin - SQ 5,000 unit TID UZMA Administration Metronidazole 500 mg in 100 mls @ 100 mls/hr 08/19/17 18:00 08/20/17 09:50 Flagyl 500mg Premixed Ivpb - IVPB 100 mls/hr Q8H-IV UZMA Administration Ondansetron HCl 4 mg 08/19/17 16:59 Zofran Injection IVPUSH Q6H PRN NAUSEA AND/OR VOMITING Piperacillin/Tazobactam/Dextrose 4.5 gm 08/20/17 15:15 Zosyn 4.5gm Ivpb (Premix) IVPB Q8H-IV UZMA ASSESSMENT/PLAN: This is a 47 year old female with a history of large uterine fibroid, c/o diarrhea and admitted for sepsis, source unknown and leukocytosis evaluation. This is a 47 yo f w/ PMH asthma and uterine fibroids who is being admitted for workup of fever and leukocytosis #Sepsis w/ unknown etiology -possibly sec to large leiomyoma that necrotic vs abscess -imaging reviewed; -stool studies negative -endometiral biopsy pending -tower air traffic control specialist following -fever spike to day 102F; with wbc 25; will branch culture her -cont flagyl and switch ceftriaxone to zosyn; discussed with ID -hem onc eval and surgery eval #Hypokalemia - resolved #Asthma:controlled -Duonebs PRN #po intake #dvt proph: heparin sq Disposition: pending biopsy report; cultures Visit type - Emergency Visit Emergency Visit: Yes ED Registration Date: 08/14/17 Care time: The patient presented to the Emergency Department on the above date and was hospitalized for further evaluation of their emergent condition. - New Patient This patient is new to me today: Yes Date on this admission: 08/20/17 - Critical Care Critical Care patient: No
[2017-08-20] MEDS ORDERED: PIPERACILLIN/TAZOB 4.5 GM/100 ML PREMIX BAG IVPB SCH (15:15)
--- NOTE | 2017-08-20 15:38 | PATH ---
Surgical Pathology Report Patient Name: SANDRA CHANDLER Med. Rec. #: [id number] /Age/Gender: 1970 (Age: 47) / F Account: [id number] Location: [facility] EMERGENCY R Taken: 08/19/2017 Received: 08/19/2017 Reported: 08/20/2017 Physicians: Kolby Balderas M.D. Specimen(s) Received PERIPHERAL BLOOD Clinical History Leukocytosis Final Diagnosis PERIPHERAL BLOOD: FLOW CYTOMETRY performed and interpreted at [facility], [place], [place] ([id number]) shows the following: INTERPRETATION: In the sample analyzed, there is no evidence of B or T-cell proliferative disorders or increased blasts. Comment: See Emerge report for additional details. Molecular studies are pending, and a report will follow. Electronically Signed Rob Titus M.D. Addendum Reported: 08/24/2017 Addendum Diagnosis PERIPHERAL BLOOD: Molecular Pathology Reports received from [facility] in [place], [place] ([id number] and [id number]) show the following: BCR/ABL GENE REARRANGEMENT (IS) ANALYSIS RESULTS: NEGATIVE BCR/ABL Major Breakpoints (b2a2 and b3a2): NOT DETECTED BCR/ABL Minor Breakpoint (e1a2): NOT DETECTED INTERPRETATION: No BCR-ABL translocation was detected in this sample. JAK2 [id number] MUTATION ANALYSIS BY PCR RESULTS: Only the wild-type JAK2 sequence was detected. INTERPRETATION: Negative for JAK2 (V617F) mutation Rob Titus M.D. Gross Description Received labelled with the patient's name are 2 green top tubes of peripheral blood which are forwarded to [facility] for ancillary testing.
[2017-08-20] MEDS ORDERED: PT OWN MED DRAWER 7, Y5N ONE (17:45)
[2017-08-20 19:22] LABS: URINE APPEARANCE CLEAR; URINE BILIRUBIN NEGATIVE (<2.0 mg/dL); URINE BLOOD 2+ (NEGATIVE); URINE COLOR YELLOW; URINE GLUCOSE (UA) NEGATIVE (NEGATIVE); URINE KETONE NEGATIVE (NEGATIVE); URINE LEUK ESTERASE TRACE (NEGATIVE); URINE NITRITE NEGATIVE (NEGATIVE); URINE PROTEIN NEGATIVE (NEGATIVE); URINE UROBILINOGEN NEGATIVE mg/dL (0.2-1.0)
[2017-08-20 19:42] LABS: EPI CELLS RARE /HPF (FEW); URINE MUCUS MODERATE
[2017-08-20] MEDS: PIPERACILLIN/TAZOB 4.5 GM 4.5 GM in DEXTROSE 5%-WATER 100 ML IVPB SCH (21:06)
[2017-08-21] MEDS: PIPERACILLIN/TAZOB 4.5 GM 4.5 GM in DEXTROSE 5%-WATER 100 ML IVPB SCH (01:27)
[2017-08-21] MEDS: HEPARIN NA (PORCINE) 5,000 UNITS/ML 1ML VIAL SQ SCH ×3 (05:54→23:02)
[2017-08-21 08:35] LABS: HEMATOCRIT 34.8 % (32.4-45.2); HEMOGLOBIN 11.2 GM/dL (10.7-15.3); MCH 26.8 pg (25.7-33.7); MCHC 32.2 g/dl (32.0-36.0); MEAN CELL VOLUME 83.3 fl (80-96); MEAN PLT VOLUME 6.5 fl (7.5-11.1); PLATELET COUNT 644 K/MM3 (134-434); RBC 4.18 M/mm3 (3.60-5.2); RDW 16.6 % (11.6-15.6); WHITE BLOOD COUNT 29.3 K/mm3 (4.0-10.0)
[2017-08-21 09:02] LABS: CHLORIDE 98 mmol/L (98-107); POTASSIUM 3.8 mmol/L (3.5-5.1); SODIUM 136 mmol/L (136-145)
--- NOTE | 2017-08-21 09:34 | PN ---
Progress Note, Physician Chief Complaint: ID Febrile 102 despite 1 weeks antibiotics WBC remains elevated - Current Medication List Current Medications: Active Medications Acetaminophen (Tylenol -) 650 mg PO Q6H PRN PRN Reason: FEVER Last Admin: 08/20/17 14:17 Dose: 650 mg Heparin Sodium (Porcine) (Heparin -) 5,000 unit SQ TID UZMA Last Admin: 08/21/17 05:54 Dose: 5,000 unit Metronidazole (Flagyl 500mg Premixed Ivpb -) 500 mg in 100 mls @ 100 mls/hr IVPB Q8H-IV UZMA Last Admin: 08/21/17 01:27 Dose: 100 mls/hr Piperacillin Sod/Tazobactam (Sod 4.5 gm/ Dextrose) 100 mls @ 200 mls/hr IVPB Q8H-IV UZMA Last Admin: 08/21/17 01:27 Dose: 200 mls/hr Ondansetron HCl (Zofran Injection) 4 mg IVPUSH Q6H PRN PRN Reason: NAUSEA AND/OR VOMITING - Objective Vital Signs: Vital Signs Temperature 99.2 F 08/21/17 09:15 Pulse Rate 106 H 08/21/17 09:15 Respiratory Rate 18 08/21/17 09:15 Blood Pressure 132/72 08/21/17 09:15 O2 Sat by Pulse Oximetry (%) 95 08/20/17 21:00 Constitutional: Yes: No Distress, Obese HENT: Yes: WNL, Atraumatic Neck: Yes: WNL, Supple Cardiovascular: Yes: Regular Rate and Rhythm, S1, S2. No: Murmur Respiratory: Yes: WNL, Regular, CTA Bilaterally. No: Rales, Rhonchi Gastrointestinal: Yes: WNL, Normal Bowel Sounds, Soft. No: Tenderness Labs: CBC, BMP 08/21/17 07:00 08/21/17 07:00 INR, PTT INR 1.27 (0.82-1.09) H 08/19/17 06:30 Assessment/Plan Microbiology Laboratory Tests 08/16/17 08/16/17 08/16/17 06:05 06:05 12:30 Hgb Plt Count ESR 101 H C-Reactive Protein 18.3 H 16.4 H 08/21/17 07:00 Hgb 11.2 Plt Count 644 H ESR C-Reactive Protein Assessment Fever persistant leukocytosis ? degenerating fibroid vs collection from GI source Note platelets going up too Plan Stop all antibiotics Repeat cultures not likely to be helpful Would favor laparoscopy for diagnostic reasons or transfer to another institution Repeat the CT abd pelvis Jody BASHIR
[2017-08-21 09:54] LABS: ALBUMIN 2.5 g/dl (3.4-5.0); ALK PHOS 173 U/L (45-117); ANION GAP 12 (8-16); BILIRUBIN,TOTAL 0.3 mg/dL (0.2-1.0); CALCIUM 8.7 mg/dL (8.5-10.1); CO2 26 mmol/L (21-32); CREATININE 0.6 mg/dL (0.55-1.02); GLUCOSE,RANDOM 114 mg/dL (74-106); SGOT/AST 24 U/L (15-37); SGPT/ALT 40 U/L (12-78); TOT PROT 7.1 g/dl (6.4-8.2)
[2017-08-21 10:30] LABS: PLATELET ESTIMATE INCREASED
--- NOTE | 2017-08-21 12:35 | PN ---
Physical Exam: SUBJECTIVE: Patient seen and examined Patient has no new complains now, patient wants to have the surgery OBJECTIVE: Vital Signs Temperature 99.2 F 08/21/17 09:15 Pulse Rate 106 H 08/21/17 09:15 Respiratory Rate 18 08/21/17 09:15 Blood Pressure 132/72 08/21/17 09:15 O2 Sat by Pulse Oximetry (%) 95 08/20/17 21:00 GENERAL: The patient is awake, alert, and fully oriented, in no acute distress. HEAD: Normal with no signs of trauma. EYES: PERRL, extraocular movements intact, sclera anicteric, conjunctiva clear. No ptosis. ENT: Ears normal, nares patent, oropharynx clear without exudates, moist mucous membranes. NECK: Trachea midline, full range of motion, supple. LUNGS: Breath sounds equal, clear to auscultation bilaterally, no wheezes, no crackles, no accessory muscle use. HEART: Regular rate and rhythm, S1, S2 without murmur, rub or gallop. ABDOMEN: Soft, nontender, large abdomen with palpable mass , normoactive bowel sounds, no guarding, no rebound, no hepatosplenomegaly. EXTREMITIES: 2+ pulses, warm, well-perfused, no edema. NEUROLOGICAL: Cranial nerves II through XII grossly intact. Normal speech, gait not observed. PSYCH: Normal mood, normal affect. SKIN: Warm, dry, normal turgor, no rashes or lesions noted CBCD WBC 29.3 K/mm3 (4.0-10.0) H 08/21/17 07:00 RBC 4.18 M/mm3 (3.60-5.2) 08/21/17 07:00 Hgb 11.2 GM/dL (10.7-15.3) 08/21/17 07:00 Hct 34.8 % (32.4-45.2) 08/21/17 07:00 MCV 83.3 fl (80-96) 08/21/17 07:00 MCHC 32.2 g/dl (32.0-36.0) 08/21/17 07:00 RDW 16.6 % (11.6-15.6) H 08/21/17 07:00 Plt Count 644 K/MM3 (134-434) H 08/21/17 07:00 MPV 6.5 fl (7.5-11.1) L 08/21/17 07:00 CMP Sodium 136 mmol/L (136-145) 08/21/17 07:00 Potassium 3.8 mmol/L (3.5-5.1) 08/21/17 07:00 Chloride 98 mmol/L (98-107) 08/21/17 07:00 Carbon Dioxide 26 mmol/L (21-32) 08/21/17 07:00 Anion Gap 12 (8-16) 08/21/17 07:00 BUN 8 mg/dL (7-18) 08/20/17 07:00 Creatinine 0.6 mg/dL (0.55-1.02) 08/21/17 07:00 Creat Clearance w eGFR > 60 (>60) 08/21/17 07:00 Random Glucose 114 mg/dL (74-106) H 08/21/17 07:00 Calcium 8.7 mg/dL (8.5-10.1) 08/21/17 07:00 Total Bilirubin 0.3 mg/dL (0.2-1.0) D 08/21/17 07:00 AST 24 U/L (15-37) 08/21/17 07:00 ALT 40 U/L (12-78) 08/21/17 07:00 Alkaline Phosphatase 173 U/L (45-117) H 08/21/17 07:00 Total Protein 7.1 g/dl (6.4-8.2) 08/21/17 07:00 Albumin 2.5 g/dl (3.4-5.0) L 08/21/17 07:00 Current Medications Generic Name Dose Route Start Last Admin Trade Name Freq PRN Reason Stop Dose Admin Acetaminophen 650 mg 08/19/17 16:59 08/20/17 14:17 Tylenol - PO 650 mg Q6H PRN Administration FEVER Heparin Sodium (Porcine) 5,000 unit 08/21/17 14:00 Heparin - SQ TID UZMA Ondansetron HCl 4 mg 08/19/17 16:59 Zofran Injection IVPUSH Q6H PRN NAUSEA AND/OR VOMITING Home Medications Medication Instructions Recorded NK [No Known Home Medication] 08/14/17 A/P: This is a 47 year old female with a history of large uterine fibroid, c/o diarrhea and admitted for sepsis, source unknown and leukocytosis evaluation. #Sepsis w/ unknown etiology ; CT of abdomen and pelvis positive for 24cm mass can't r/o neoplasm. Discussed with dr. Gonzalez and Dr. Quinones who Obg onc. will operate on the patient on Wednesday morning. PAtient is agreeable. endometiral biopsy pending Off antibiotic for now, was stopped by ID. #Hypokalemia - resolved #Asthma:controlled, Duonebs PRN #dvt proph: heparin sq Visit type - Emergency Visit Emergency Visit: Yes ED Registration Date: 08/14/17 Care time: The patient presented to the Emergency Department on the above date and was hospitalized for further evaluation of their emergent condition. - New Patient This patient is new to me today: No - Critical Care Critical Care patient: No - Discharge Referral Referred to [facility] Med P.C.: No
[2017-08-21 15:43] LABS: BLOOD UREA NITROGEN 6 mg/dL (7-18)
--- NOTE | 2017-08-21 23:22 | PN ---
Progress Note (short form) - Note Progress Note: Patient seen and examined Feels better Last Vital Signs Temp Pulse Resp BP Pulse Ox 98.1 F 91 H 23 129/67 96 08/22/17 07:22 08/22/17 07:22 08/22/17 07:22 08/22/17 07:22 08/21/17 21:00 Cor: RSR, No murmurs, No gallops Lungs: Clear to P&A Abd: Soft, Normal bowel sounds, No organomegaly Ext:No significant edema Abnormal Lab Results 08/21/17 08/21/17 07:00 07:00 WBC 29.3 H RDW 16.6 H Plt Count 644 H MPV 6.5 L BUN 6 L Random Glucose 114 H Alkaline Phosphatase 173 H Albumin 2.5 L Active Medications Generic Name Dose Route Start Last Admin Trade Name Freq PRN Reason Stop Dose Admin Acetaminophen 650 mg 08/19/17 16:59 08/20/17 14:17 Tylenol - PO 650 mg Q6H PRN Administration FEVER Heparin Sodium (Porcine) 5,000 unit 08/21/17 14:00 08/22/17 06:02 Heparin - SQ 5,000 unit TID UZMA Administration Ondansetron HCl 4 mg 08/19/17 16:59 Zofran Injection IVPUSH Q6H PRN NAUSEA AND/OR VOMITING A/P 47 y/o patient with Leucocytosis Reactive likely Anemia Likely ACD/ACI Will order regular iron labs uterine mass--? necrotic leiomyoma PROCESS IMPROVEMENT ENGINEER f/u await pathology tumor markers--nl
[2017-08-22] MEDS: HEPARIN NA (PORCINE) 5,000 UNITS/ML 1ML VIAL SQ SCH ×2 (06:02→14:49)
--- NOTE | 2017-08-22 14:45 | PN ---
<Gerard Painter - Last Filed: 08/22/17 16:29> Physical Exam: SUBJECTIVE: Patient seen and examined at bedside. No new complaints. No more episodes of diarrhea. For hysterectomy tomorrow. OBJECTIVE: Vital Signs Period Temp Pulse Resp BP Sys/Solares Pulse Ox Last 24 Hr 98.1 F-100.5 F 91-118 18-23 116-129/58-68 96 GENERAL: The patient is awake, alert, and fully oriented, in no acute distress. NECK: Trachea midline, full range of motion, supple. LUNGS: Breath sounds equal, clear to auscultation bilaterally, no wheezes, no crackles, no accessory muscle use. HEART: Regular rate and rhythm, S1, S2 without murmur, rub or gallop. ABDOMEN: Soft, nontender, obese, normoactive bowel sounds, no guarding, no rebound, no hepatosplenomegaly, no masses. EXTREMITIES: 2+ pulses, warm, well-perfused, no edema. NEUROLOGICAL: Cranial nerves II through X grossly intact. Normal speech, gait not observed. PSYCH: Normal mood, normal affect. SKIN: Warm, dry, normal turgor, no rashes or lesions noted Laboratory Results - last 24 hr 08/21/17 07:00 BUN 6 L Active Medications Generic Name Dose Route Start Last Admin Trade Name Freq PRN Reason Stop Dose Admin Acetaminophen 650 mg 08/19/17 16:59 08/20/17 14:17 Tylenol - PO 650 mg Q6H PRN Administration FEVER Heparin Sodium (Porcine) 5,000 unit 08/21/17 14:00 08/22/17 06:02 Heparin - SQ 5,000 unit TID UZMA Administration Ondansetron HCl 4 mg 08/19/17 16:59 Zofran Injection IVPUSH Q6H PRN NAUSEA AND/OR VOMITING ASSESSMENT/PLAN: This is a 47 yo f w/ PMH asthma and uterine fibroids who is being admitted for workup of fever and leukocytosis #SIRS; possibly due to large leiomyoma -Per ID, all ABX dc'd -Per Heme-onc, leukocytosis likely reactive -continues to spike fevers; afebrile today #Abdominal mass on CT -ASSISTIVE TECHNOLOGY TRAINER onboard -s/p endometrial biopsy, will f/u pathology -Tumor markers WNL -For hysterectomy tomorrow #Hypokalemia - resolved #Asthma -Duonebs PRN #FEN -no fluids indicated -monitor lytes -regular diet; NPO past midnight for surgery. #Prophy -HSQ 5ku TID. Will hold in AM for surgery #Dispo -admit to med surg Visit type - Emergency Visit Emergency Visit: Yes ED Registration Date: 08/14/17 Care time: The patient presented to the Emergency Department on the above date and was hospitalized for further evaluation of their emergent condition. - New Patient This patient is new to me today: No - Critical Care Critical Care patient: No <Sobeida Ybarra - Last Filed: 08/22/17 19:41> Physical Exam: Agree with the resident's note. Vital Signs Temperature 99.3 F 08/22/17 18:57 Pulse Rate 96 H 08/22/17 18:57 Respiratory Rate 20 08/22/17 18:57 Blood Pressure 115/60 08/22/17 18:57 O2 Sat by Pulse Oximetry (%) 96 08/22/17 09:00 CBCD WBC 29.3 K/mm3 (4.0-10.0) H 08/21/17 07:00 RBC 4.18 M/mm3 (3.60-5.2) 08/21/17 07:00 Hgb 11.2 GM/dL (10.7-15.3) 08/21/17 07:00 Hct 34.8 % (32.4-45.2) 08/21/17 07:00 MCV 83.3 fl (80-96) 08/21/17 07:00 MCHC 32.2 g/dl (32.0-36.0) 08/21/17 07:00 RDW 16.6 % (11.6-15.6) H 08/21/17 07:00 Plt Count 644 K/MM3 (134-434) H 08/21/17 07:00 MPV 6.5 fl (7.5-11.1) L 08/21/17 07:00 CMP Sodium 136 mmol/L (136-145) 08/21/17 07:00 Potassium 3.8 mmol/L (3.5-5.1) 08/21/17 07:00 Chloride 98 mmol/L (98-107) 08/21/17 07:00 Carbon Dioxide 26 mmol/L (21-32) 08/21/17 07:00 Anion Gap 12 (8-16) 08/21/17 07:00 BUN 6 mg/dL (7-18) L 08/21/17 07:00 Creatinine 0.6 mg/dL (0.55-1.02) 08/21/17 07:00 Creat Clearance w eGFR > 60 (>60) 08/21/17 07:00 Random Glucose 114 mg/dL (74-106) H 08/21/17 07:00 Calcium 8.7 mg/dL (8.5-10.1) 08/21/17 07:00 Total Bilirubin 0.3 mg/dL (0.2-1.0) D 08/21/17 07:00 AST 24 U/L (15-37) 08/21/17 07:00 ALT 40 U/L (12-78) 08/21/17 07:00 Alkaline Phosphatase 173 U/L (45-117) H 08/21/17 07:00 Total Protein 7.1 g/dl (6.4-8.2) 08/21/17 07:00 Albumin 2.5 g/dl (3.4-5.0) L 08/21/17 07:00 Current Medications Generic Name Dose Route Start Last Admin Trade Name Freq PRN Reason Stop Dose Admin Acetaminophen 650 mg 08/19/17 16:59 08/20/17 14:17 Tylenol - PO 650 mg Q6H PRN Administration FEVER Ondansetron HCl 4 mg 08/19/17 16:59 Zofran Injection IVPUSH Q6H PRN NAUSEA AND/OR VOMITING Home Medications Medication Instructions Recorded NK [No Known Home Medication] 08/14/17
--- NOTE | 2017-08-22 15:02 | PN ---
Progress Note, Physician History of Present Illness: Low grade temp Feels well No focal complaint - Current Medication List Current Medications: Active Medications Acetaminophen (Tylenol -) 650 mg PO Q6H PRN PRN Reason: FEVER Last Admin: 08/20/17 14:17 Dose: 650 mg Heparin Sodium (Porcine) (Heparin -) 5,000 unit SQ TID UZMA Last Admin: 08/22/17 14:49 Dose: 5,000 unit Ondansetron HCl (Zofran Injection) 4 mg IVPUSH Q6H PRN PRN Reason: NAUSEA AND/OR VOMITING - Objective Vital Signs: Vital Signs Temperature 98.3 F 08/22/17 11:00 Pulse Rate 99 H 08/22/17 11:00 Respiratory Rate 18 08/22/17 11:00 Blood Pressure 116/68 08/22/17 11:00 O2 Sat by Pulse Oximetry (%) 96 08/21/17 21:00 Constitutional: Yes: No Distress Cardiovascular: Yes: Regular Rate and Rhythm, S1, S2 Respiratory: Yes: CTA Bilaterally Gastrointestinal: Yes: Normal Bowel Sounds, Soft Labs: CBC, BMP 08/21/17 07:00 08/21/17 07:00 INR, PTT INR 1.27 (0.82-1.09) H 08/19/17 06:30 Assessment/Plan Fever/ leukocytosis ? secondary to necrotic leiomyoma Off antibiotics For hysterectomy am
[2017-08-22] MEDS ORDERED: BISACODYL 5 MG TABLET.DR (FP) PO ONE (21:15)
[2017-08-22] MEDS ORDERED: MAGNESIUM CITRATE 300 ML BOTTLE PO ONE (22:00)
[2017-08-23] MEDS ORDERED: SODIUM PHOSPHATE/NA BIPHOS 133 ML ENEMA RC ONE (07:00)
[2017-08-23 08:13] LABS: HEMATOCRIT 35.6 % (32.4-45.2); HEMOGLOBIN 11.6 GM/dL (10.7-15.3); MCHC 32.6 g/dl (32.0-36.0); MEAN CELL VOLUME 82.9 fl (80-96); MEAN PLT VOLUME 6.5 fl (7.5-11.1); PLATELET COUNT 713 K/MM3 (134-434); RBC 4.29 M/mm3 (3.60-5.2); RDW 16.8 % (11.6-15.6); WHITE BLOOD COUNT 26.9 K/mm3 (4.0-10.0)
[2017-08-23 08:20] LABS: INR 1.35 (0.82-1.09); PROTHROMBIN TIME (PATIENT) 15.2 SEC (9.98-11.88)
[2017-08-23 08:21] LABS: ACTIVATED PTT 29.6 SECONDS (26.9-34.4)
[2017-08-23] MEDS ORDERED: DESFLURANE GAS 240 ML BOTTLE IH ONE (08:49)
[2017-08-23] MEDS ORDERED: MIDAZOLAM HCL 2 MG/2 ML SINGLE DOSE VIAL ONE (08:57)
[2017-08-23] MEDS ORDERED: ROCURONIUM BROMIDE 50 MG/5 ML VIAL ONE ×2 (08:58→10:40)
[2017-08-23] MEDS ORDERED: fentaNYL CITRATE 250 MCG/5 ML VIAL ONE (08:58)
[2017-08-23] MEDS ORDERED: PROPOFOL 20 ML ONE ×3 (09:00)
[2017-08-23] MEDS ORDERED: SUCCINYLCHOLINE CHLORIDE 200 MG/10 ML VIAL ONE (09:00)
[2017-08-23] MEDS ORDERED: ceFAZolin SODIUM 1 GM VIAL ONE (09:01)
[2017-08-23] MEDS ORDERED: LIDOCAINE HCL/PF 2% SDV 5ML VIAL ONE (09:01)
[2017-08-23] MEDS ORDERED: ceFAZolin SODIUM 1 GM VIAL IVPB ONE (09:55)
[2017-08-23 10:03] LABS: ALBUMIN 2.6 g/dl (3.4-5.0); ANION GAP 11 (8-16); BLOOD UREA NITROGEN 9 mg/dL (7-18); CALCIUM 8.5 mg/dL (8.5-10.1); CHLORIDE 100 mmol/L (98-107); CO2 26 mmol/L (21-32); GLUCOSE,RANDOM 110 mg/dL (74-106); MAGNESIUM 2.3 mg/dL (1.8-2.4); PHOSPHOROUS 4.4 mg/dL (2.5-4.9); POTASSIUM 4.2 mmol/L (3.5-5.1); SGOT/AST 25 U/L (15-37); SGPT/ALT 40 U/L (12-78); SODIUM 137 mmol/L (136-145)
[2017-08-23 10:08] LABS: ALK PHOS 159 U/L (45-117); BILIRUBIN,TOTAL 0.3 mg/dL (0.2-1.0); CREATININE 0.6 mg/dL (0.55-1.02); TOT PROT 7.3 g/dl (6.4-8.2)
[2017-08-23] MEDS ORDERED: NEOSTIGMINE METHYLSULFATE 0.5 MG/ML - 10 ML MDV ONE (10:40)
[2017-08-23] MEDS ORDERED: MORPHINE SULFATE 10 MG/1 ML *VIAL ONE (10:40)
--- NOTE | 2017-08-23 10:48 | PN ---
Progress Note, Physician Chief Complaint: ID Remains off antibiotics - Current Medication List Current Medications: Active Medications Acetaminophen (Tylenol -) 650 mg PO Q6H PRN PRN Reason: FEVER Last Admin: 08/20/17 14:17 Dose: 650 mg Ondansetron HCl (Zofran Injection) 4 mg IVPUSH Q6H PRN PRN Reason: NAUSEA AND/OR VOMITING - Objective Vital Signs: Vital Signs Temperature 98.6 F 08/23/17 06:44 Pulse Rate 89 08/23/17 06:44 Respiratory Rate 20 08/23/17 06:44 Blood Pressure 118/66 08/23/17 06:44 O2 Sat by Pulse Oximetry (%) 96 08/22/17 21:00 Gastrointestinal: Yes: WNL, Normal Bowel Sounds, Soft. No: Tenderness, Tenderness, Epigastrium Labs: CBC, BMP 08/23/17 07:46 08/23/17 07:46 INR, PTT INR 1.35 (0.82-1.09) H 08/23/17 07:46 Assessment/Plan Laboratory Tests 08/23/17 08/23/17 07:46 07:46 WBC 26.9 H Hgb 11.6 Plt Count 713 H Creatinine 0.6 Creat Clearance w eGFR > 60 Assessment For hysterectomy today Plan Will follow post op Jody BASHIR
--- NOTE | 2017-08-23 11:34 | PATH ---
Surgical Pathology Report Patient Name: SANDRA CHANDLER Med. Rec. #: [id number] /Age/Gender: 1970 (Age: 47) / F Account: [id number] Location: [facility] R Taken: 08/19/2017 Received: 08/20/2017 Reported: 08/23/2017 Physicians: Naomy Gonzalez M.D. Specimen(s) Received ENDOMETRIAL CURETTINGS Clinical History Pelvic mass Final Diagnosis ENDOMETRIUM, CURETTING: BENIGN ENDOMETRIAL EPITHELIUM AND MUCOSA WITH AREAS SUGGESTIVE OF BENIGN ENDOMETRIAL POLYP, ALONG WITH BENIGN ENDOCERVICAL TISSUE AND SQUAMOUS EPITHELIUM. NO ENDOMETRIAL HYPERPLASIA OR CARCINOMA IDENTIFIED. Electronically Signed Rob Titus M.D. Gross Description Received in formalin labeled "endometrial curettings" are multiple fragments of red-rocha hemorrhagic soft tissue measuring 2.5 x 2 x 0.6 cm in aggregate. The entire specimen submitted in 2 cassettes. SHABANA/08/20/2017 kwaku/08/20/2017
[2017-08-23] MEDS ORDERED: GLYCOPYRROLATE 0.2 MG/1 ML VIAL ONE (11:36)
[2017-08-23] MEDS ORDERED: ONDANSETRON 4 MG/2 ML VIAL IVPUSH PRN ×3 (12:16→12:54)
[2017-08-23] MEDS ORDERED: LACTATED RINGERS SOLUTION 1,000 ML IV SCH (12:30)
[2017-08-23] MEDS ORDERED: HYDROmorphone *PCA* 10MG/50ML DISP.SYRIN PCA SCH ×5 (12:30→17:30)
--- NOTE | 2017-08-23 12:36 | OP ---
Operative Note - Note: Operative Date: 08/23/17 Pre-Operative Diagnosis: abdominal pelvic mass, fevers Operation: Total abdominal hysterectomy, BSO, radical resection of mass, lysis of adhesions, omentectomy Post-Operative Diagnosis: Same as Pre-op Surgeon: Carlee Elder Traffic Investigator: Naomy Gonzalez Anesthesia: General Specimens Removed: uterus, cervix, bilateral tubes and ovaries, washings, omentum Estimated Blood Loss (mls): 400 Drains & Tubes with Location: none Operative Report Dictated: Yes
[2017-08-23] MEDS ORDERED: HYDROmorphone *PCA* 6MG/30ML DISP.SYRIN PCA ONE (12:57)
[2017-08-23] MEDS: LACTATED RINGERS SOLUTION 1,000 ML IV SCH (14:30)
[2017-08-23] MEDS: KETOROLAC TROMETHAMINE 30 MG/1 ML VIAL IVPUSH SCH ×3 (15:19→23:46)
[2017-08-23] MEDS ORDERED: HYDROmorphone *PCA* 6MG/30ML DISP.SYRIN PCA SCH ×2 (15:34→16:42)
[2017-08-23] MEDS ORDERED: PCA PUMP KEY 1 EACH EACH ONE (16:46)
[2017-08-23] MEDS: ACETAMINOPHEN 325 MG TABLET (FP) PO SCH ×2 (18:10→23:45)
--- NOTE | 2017-08-23 20:55 | PN ---
Physical Exam: SUBJECTIVE: Patient seen and examined at bedside. Patient was pre op at the time of assessment. no new complaints. for hysterectomy today. OBJECTIVE: Vital Signs Period Temp Pulse Resp BP Sys/Solares Pulse Ox Last 24 Hr 97.4 F-99.3 F 89-102 16-20 116-137/64-93 94-96 GENERAL: The patient is awake, alert, and fully oriented, in no acute distress. HEAD: Normal with no signs of trauma. LUNGS: Breath sounds equal, clear to auscultation bilaterally, no wheezes, no crackles, no accessory muscle use. HEART: Regular rate and rhythm, S1, S2 without murmur, rub or gallop. ABDOMEN: Soft, nontender, obese, normoactive bowel sounds, no guarding, no rebound, no hepatosplenomegaly, no masses. EXTREMITIES: 2+ pulses, warm, well-perfused, no edema. NEUROLOGICAL: Cranial nerves II through X grossly intact. Normal speech, gait not observed. PSYCH: Normal mood, normal affect. SKIN: Warm, dry, normal turgor, no rashes or lesions noted Laboratory Results - last 24 hr 08/23/17 08/23/17 08/23/17 07:46 07:46 07:46 WBC 26.9 H RBC 4.29 Hgb 11.6 Hct 35.6 MCV 82.9 MCH 27.0 MCHC 32.6 RDW 16.8 H Plt Count 713 H MPV 6.5 L PT with INR 15.20 H INR 1.35 H PTT (Actin FS) 29.6 Sodium 137 Potassium 4.2 Chloride 100 Carbon Dioxide 26 Anion Gap 11 BUN 9 Creatinine 0.6 Creat Clearance w eGFR > 60 Random Glucose 110 H Calcium 8.5 Phosphorus 4.4 Magnesium 2.3 Total Bilirubin 0.3 AST 25 ALT 40 Alkaline Phosphatase 159 H Total Protein 7.3 Albumin 2.6 L Blood Type Antibody Screen 08/23/17 08/23/17 10:00 10:12 WBC RBC Hgb Hct MCV MCH MCHC RDW Plt Count MPV PT with INR INR PTT (Actin FS) Sodium Potassium Chloride Carbon Dioxide Anion Gap BUN Creatinine Creat Clearance w eGFR Random Glucose Calcium Phosphorus Magnesium Total Bilirubin AST ALT Alkaline Phosphatase Total Protein Albumin Blood Type O POSITIVE O POSITIVE Antibody Screen Negative Active Medications Generic Name Dose Route Start Last Admin Trade Name Freq PRN Reason Stop Dose Admin Acetaminophen 650 mg 08/23/17 18:30 08/23/17 18:10 Tylenol - PO 650 mg Q6H UZMA Administration Hydromorphone HCl 10 mg 08/23/17 17:30 08/23/17 17:22 Dilaudid Director Clinical Pharmacology - COMMERCIAL SINGER 10 mg COMMERCIAL SINGER UZMA Administration Lactated Ringer's 1,000 mls @ 125 mls/hr 08/23/17 12:54 08/23/17 14:30 Lactated Ringers Solution IV 125 mls/hr ASDIR UZMA Administration Ketorolac Tromethamine 30 mg 08/23/17 12:30 08/23/17 18:06 Toradol Injection - IVPUSH 08/28/17 12:29 30 mg Q6H UZMA Administration Ondansetron HCl 4 mg 08/23/17 12:54 Zofran Injection IVPUSH Q6H PRN NAUSEA AND/OR VOMITING ASSESSMENT/PLAN: This is a 47 yo f w/ PMH asthma and uterine fibroids who is being admitted for workup of fever and leukocytosis #SIRS; possibly due to large leiomyoma -Per ID, all ABX dc'd -Per Heme-onc, leukocytosis likely reactive -afebrile today #Abdominal mass on CT; POD #0 -AUTO PAINTER onboard -Tumor markers WNL - s/p total abdominal hysterectomy. -pain control w/ COMMERCIAL SINGER & toradol #Hypokalemia - resolved #Asthma -Duonebs PRN #FEN -LR @125 -monitor lytes -clear liquid diet #Prophy -holding AC as pt post op #Dispo -admit to med surg Visit type - Emergency Visit Emergency Visit: Yes ED Registration Date: 08/14/17 Care time: The patient presented to the Emergency Department on the above date and was hospitalized for further evaluation of their emergent condition. - New Patient This patient is new to me today: No - Critical Care Critical Care patient: No
[2017-08-24] MEDS: ACETAMINOPHEN 325 MG TABLET (FP) PO SCH ×3 (06:27→17:36)
[2017-08-24] MEDS: KETOROLAC TROMETHAMINE 30 MG/1 ML VIAL IVPUSH SCH ×3 (06:30→17:34)
[2017-08-24 07:56] LABS: BASO % 0.2 % (0-2.0); EOS % 0.2 % (0-4.5); HEMATOCRIT 30.6 % (32.4-45.2); HEMOGLOBIN 9.9 GM/dL (10.7-15.3); LYMPH % 9.9 % (8-40); MCH 26.8 pg (25.7-33.7); MCHC 32.2 g/dl (32.0-36.0); MEAN CELL VOLUME 83.5 fl (80-96); MEAN PLT VOLUME 6.7 fl (7.5-11.1); MONO % 6.1 % (3.8-10.2); NEUT % 83.6 % (42.8-82.8); PLATELET COUNT 610 K/MM3 (134-434); RBC 3.67 M/mm3 (3.60-5.2); RDW 16.4 % (11.6-15.6); WHITE BLOOD COUNT 15.6 K/mm3 (4.0-10.0)
[2017-08-24 08:03] LABS: ANION GAP 5 (8-16); BLOOD UREA NITROGEN 13 mg/dL (7-18); CALCIUM 8.5 mg/dL (8.5-10.1); CHLORIDE 105 mmol/L (98-107); CO2 29 mmol/L (21-32); GLUCOSE,RANDOM 102 mg/dL (74-106); POTASSIUM 4.5 mmol/L (3.5-5.1); SODIUM 139 mmol/L (136-145)
[2017-08-24 08:07] LABS: CREATININE 0.4 mg/dL (0.55-1.02)
--- NOTE | 2017-08-24 08:10 | PN ---
Progress Note, Physician History of Present Illness: 47 yo with Leiomyoma of the uterus is status post VJ / BSO and pelvic lavage. Patient seen and evaluated, doing well. She's lying in bed, no complaints. Urine output is scant; she's drinking a lot of water. - Current Medication List Current Medications: Active Medications Acetaminophen (Tylenol -) 650 mg PO Q6H [facility] Last Admin: 08/24/17 06:27 Dose: Not Given Hydromorphone HCl (Dilaudid Spotter -) 10 mg UTILITY SPRAY OPERATOR UTILITY SPRAY OPERATOR [facility] Last Admin: 08/23/17 17:22 Dose: 10 mg Lactated Ringer's (Lactated Ringers Solution) 1,000 mls @ 125 mls/hr IV ASDIR [facility] Last Admin: 08/23/17 14:30 Dose: 125 mls/hr Ketorolac Tromethamine (Toradol Injection -) 30 mg IVPUSH Q6H [facility] Stop: 08/28/17 12:29 Last Admin: 08/24/17 06:30 Dose: Not Given Ondansetron HCl (Zofran Injection) 4 mg IVPUSH Q6H PRN PRN Reason: NAUSEA AND/OR VOMITING - Objective Vital Signs: Vital Signs Temperature 97.3 F L 08/24/17 06:00 Pulse Rate 54 L 08/24/17 06:00 Respiratory Rate 20 08/24/17 06:00 Blood Pressure 112/64 08/24/17 06:00 O2 Sat by Pulse Oximetry (%) 95 08/23/17 22:00 Constitutional: Yes: No Distress Eyes: Yes: Conjunctiva Clear HENT: Yes: Atraumatic Neck: Yes: Supple, Trachea Midline Cardiovascular: Yes: Regular Rate and Rhythm Gastrointestinal: Yes: Normal Bowel Sounds Genitourinary: Yes: Pandya Present Musculoskeletal: Yes: WNL Wound/Incision: Yes: Clean/Dry, Dressing Dry and Intact Neurological: Yes: Alert, Oriented ...Motor Strength: WNL Psychiatric: Yes: Alert, Oriented Labs: CBC, BMP 08/24/17 06:00 INR, PTT INR 1.35 (0.82-1.09) H 08/23/17 07:46 Problem List - Problems (1) Abdominal mass Code(s): R19.00 - INTRA-ABD AND PELVIC SWELLING, MASS AND LUMP, UNSP SITE (2) Fibroid uterus Code(s): D25.9 - LEIOMYOMA OF UTERUS, UNSPECIFIED (3) Status post total abdominal hysterectomy and bilateral salpingo- oophorectomy (VJ-BSO) Code(s): Z90.710 - ACQUIRED ABSENCE OF BOTH CERVIX AND UTERUS; Z90.722 - ACQUIRED ABSENCE OF OVARIES, BILATERAL; Z90.79 - ACQUIRED ABSENCE OF OTHER GENITAL ORGAN(S) Assessment/Plan Leiomyoma of the uterus Status post VJ / BSO Ambulation Analgesia as needed F/U repeat CBC Continue post op care
[2017-08-24] MEDS: LACTATED RINGERS SOLUTION 1,000 ML IV SCH (09:00)
--- NOTE | 2017-08-24 09:39 | PN ---
Progress Note (short form) - Note Progress Note: Anesthesia postop note 47 y/o F s/p GA for VJ BSO, iv network intelligence analyst for postop pain management POD#1, vss, aaox3, no complaints, pain fairly well controlled, drinking clear fluids. Will d/c network intelligence analyst when tolerating po, encouraged to ambulate and do incentive spirometry. No anesthesia comlications.
[2017-08-24] MEDS ORDERED: oxyCODONE HCL 5 MG TABLET PO PRN (09:43)
--- NOTE | 2017-08-24 10:22 | PN ---
Progress Note (short form) - Note Progress Note: feels well no complaints POD #1 s/p VJ/BSO Vital Signs Period Temp Pulse Resp BP Sys/Solares Pulse Ox Last 24 Hr 97.3 F-98.8 F 54-102 16-20 105-137/56-93 94-99 cor-rrr lungs clear abd dressing intract ext no edema henry intact CBC, BMP 04/03/18 06:00 04/03/18 06:00 a/p fevers resolved leukocytosis resolving POD #1 s/p VJ/BSO management per gyne s Problem List - Problems (1) FUO (fever of unknown origin) Code(s): R50.9 - FEVER, UNSPECIFIED (2) Elevated WBC count Code(s): D72.829 - ELEVATED WHITE BLOOD CELL COUNT, UNSPECIFIED Qualifiers: Leukocytosis type: unspecified Qualified Code(s): D72.829 - Elevated white blood cell count, unspecified
--- NOTE | 2017-08-24 10:26 | PN ---
Teaching Attending Note Name of Resident: Gerard Painter ATTENDING PHYSICIAN STATEMENT I saw and evaluated the patient. I reviewed the resident's note and discussed the case with the resident. I agree with the resident's findings and plan as documented. SUBJECTIVE: Patient is feeling well with no acute distress, eating ok, no fever or chills. OBJECTIVE: Vital Signs Temperature 97.4 F L 08/24/17 07:15 Pulse Rate 67 08/24/17 07:15 Respiratory Rate 20 08/24/17 07:15 Blood Pressure 105/56 08/24/17 07:15 O2 Sat by Pulse Oximetry (%) 99 08/24/17 07:15 GENERAL: The patient is awake, alert, and fully oriented, in no acute distress. HEAD: Normal with no signs of trauma. EYES: PERRL, extraocular movements intact, sclera anicteric, conjunctiva clear. ENT: Ears normal, nares patent, oropharynx clear without exudates, moist mucous membranes. NECK: Trachea midline, full range of motion, supple. LUNGS: Breath sounds equal, clear to auscultation bilaterally, no wheezes, no crackles, no accessory muscle use. HEART: Regular rate and rhythm, S1, S2 without murmur, rub or gallop. ABDOMEN: Soft, s/p Surgery day #1, dry clean dressing covered the incision site. hypoactive BS , no guarding, no rebound, no hepatosplenomegaly. EXTREMITIES: 2+ pulses, warm, well-perfused, no edema. NEUROLOGICAL: Cranial nerves II through XII grossly intact. Normal speech, gait not observed. PSYCH: Normal mood, normal affect. SKIN: Warm, dry, normal turgor, no rashes or lesions noted CBCD WBC 15.6 K/mm3 (4.0-10.0) H D 08/24/17 06:00 RBC 3.67 M/mm3 (3.60-5.2) 08/24/17 06:00 Hgb 9.9 GM/dL (10.7-15.3) L D 08/24/17 06:00 Hct 30.6 % (32.4-45.2) L 08/24/17 06:00 MCV 83.5 fl (80-96) 08/24/17 06:00 MCHC 32.2 g/dl (32.0-36.0) 08/24/17 06:00 RDW 16.4 % (11.6-15.6) H 08/24/17 06:00 Plt Count 610 K/MM3 (134-434) H 08/24/17 06:00 MPV 6.7 fl (7.5-11.1) L 08/24/17 06:00 CMP Sodium 139 mmol/L (136-145) 08/24/17 06:00 Potassium 4.5 mmol/L (3.5-5.1) 08/24/17 06:00 Chloride 105 mmol/L (98-107) 08/24/17 06:00 Carbon Dioxide 29 mmol/L (21-32) 08/24/17 06:00 Anion Gap 5 (8-16) L 08/24/17 06:00 BUN 13 mg/dL (7-18) 08/24/17 06:00 Creatinine 0.4 mg/dL (0.55-1.02) L 08/24/17 06:00 Creat Clearance w eGFR > 60 (>60) 08/23/17 07:46 Random Glucose 102 mg/dL (74-106) 08/24/17 06:00 Calcium 8.5 mg/dL (8.5-10.1) 08/24/17 06:00 Total Bilirubin 0.3 mg/dL (0.2-1.0) 08/23/17 07:46 AST 25 U/L (15-37) 08/23/17 07:46 ALT 40 U/L (12-78) 08/23/17 07:46 Alkaline Phosphatase 159 U/L (45-117) H 08/23/17 07:46 Total Protein 7.3 g/dl (6.4-8.2) 08/23/17 07:46 Albumin 2.6 g/dl (3.4-5.0) L 08/23/17 07:46 Current Medications Generic Name Dose Route Start Last Admin Trade Name Freq PRN Reason Stop Dose Admin Acetaminophen 650 mg 08/23/17 18:30 08/24/17 06:27 Tylenol - PO Not Given Q6H UZMA Lactated Ringer's 1,000 mls @ 125 mls/hr 08/23/17 12:54 08/23/17 14:30 Lactated Ringers Solution IV 125 mls/hr ASDIR UZMA Administration Ketorolac Tromethamine 30 mg 08/23/17 12:30 08/24/17 06:30 Toradol Injection - IVPUSH 08/28/17 12:29 Not Given Q6H UZMA Ondansetron HCl 4 mg 08/23/17 12:54 Zofran Injection IVPUSH Q6H PRN NAUSEA AND/OR VOMITING Oxycodone HCl 5 mg 08/24/17 09:43 Roxicodone - PO 08/25/17 09:42 Q4H PRN PAIN LEVEL 1-5 Home Medications Medication Instructions Recorded NK [No Known Home Medication] 08/14/17 ASSESSMENT AND PLAN: This patient is a 47 year old female with a history of large uterine fibroid measures around 24cm on CT of abdomen and Pelvis presented with diarrhea and was admitted for sepsis, with Unknown source . POD#1 S/P VJ with BSO (08/23/2017) due to Leiomyoma of the uterus with Acute Leukoctosis which was causing Inflammatory/Leukocytosis of around 30K---> 15K today post sx, will trend. Endometrial Bx result: No endometrial hyperplasia or Ca was identified. Surgeons and Dr. Weber OBG.onc patient was treated by Antibiotics originally since was having fever with Leukocytois ,septic picture but patient did not respond to antibiotic. # Morbid Obesity with BMI of 52K, suggested weight loss # Diarrhea initially w/u is negative, and resolved now. No cdiff #Hypokalemia - resolved #Asthma:controlled, Duonebs PRN #dvt proph: heparin sq, SCds Trend WBC/platelets
[2017-08-24] MEDS ORDERED: PCA PUMP KEY 1 EACH EACH ONE (10:28)
--- NOTE | 2017-08-24 10:36 | PN ---
Physical Exam: SUBJECTIVE: Patient seen and examined at bedside. Pain controlled. s/p hysterectomy w/ bl salpingoophrectomy. OBJECTIVE: Vital Signs Period Temp Pulse Resp BP Sys/Solares Pulse Ox Last 24 Hr 97.3 F-98.8 F 54-102 16-20 105-137/56-93 94-99 GENERAL: The patient is awake, alert, and fully oriented, in no acute distress. HEAD: Normal with no signs of trauma. NECK: Trachea midline, full range of motion, supple. LUNGS: Breath sounds equal, clear to auscultation bilaterally, no wheezes, no crackles, no accessory muscle use. HEART: Regular rate and rhythm, S1, S2 without murmur, rub or gallop. ABDOMEN: Soft, nontender, nondistended, hypoactive bowel sounds, no guarding, no rebound, no hepatosplenomegaly, no masses. Surgical bandage in place. EXTREMITIES: 2+ pulses, warm, well-perfused, no edema. NEUROLOGICAL: Cranial nerves II through X grossly intact. Normal speech, gait not observed. PSYCH: Normal mood, normal affect. SKIN: Warm, dry, normal turgor, no rashes or lesions noted Laboratory Results - last 24 hr 08/23/17 08/23/17 08/24/17 10:00 10:12 06:00 WBC 15.6 H D RBC 3.67 Hgb 9.9 L D Hct 30.6 L MCV 83.5 MCH 26.8 MCHC 32.2 RDW 16.4 H Plt Count 610 H MPV 6.7 L Neutrophils % 83.6 H Lymphocytes % 9.9 D Monocytes % 6.1 Eosinophils % 0.2 D Basophils % 0.2 Sodium Potassium Chloride Carbon Dioxide Anion Gap BUN Creatinine Random Glucose Calcium Blood Type O POSITIVE O POSITIVE Antibody Screen Negative 08/24/17 06:00 WBC RBC Hgb Hct MCV MCH MCHC RDW Plt Count MPV Neutrophils % Lymphocytes % Monocytes % Eosinophils % Basophils % Sodium 139 Potassium 4.5 Chloride 105 Carbon Dioxide 29 Anion Gap 5 L BUN 13 Creatinine 0.4 L Random Glucose 102 Calcium 8.5 Blood Type Antibody Screen Active Medications Generic Name Dose Route Start Last Admin Trade Name Freq PRN Reason Stop Dose Admin Acetaminophen 650 mg 08/23/17 18:30 08/24/17 06:27 Tylenol - PO Not Given Q6H UZMA Lactated Ringer's 1,000 mls @ 125 mls/hr 08/23/17 12:54 08/23/17 14:30 Lactated Ringers Solution IV 125 mls/hr ASDIR UZMA Administration Ketorolac Tromethamine 30 mg 08/23/17 12:30 08/24/17 06:30 Toradol Injection - IVPUSH 08/28/17 12:29 Not Given Q6H UZMA Ondansetron HCl 4 mg 08/23/17 12:54 Zofran Injection IVPUSH Q6H PRN NAUSEA AND/OR VOMITING Oxycodone HCl 5 mg 08/24/17 09:43 Roxicodone - PO 08/25/17 09:42 Q4H PRN PAIN LEVEL 1-5 ASSESSMENT/PLAN: This is a 47 yo f w/ PMH asthma and uterine fibroids who is being admitted for workup of fever and leukocytosis. #Abdominal mass on CT; POD #1 -LOGGER DRIVING HORSES onboard -Tumor markers WNL -s/p total abdominal hysterectomy, b/l salpingoophrectomy. -pain control w/ INTEGRITY ASSESSOR & toradol -elevated WBC resolving today 26.9 -> 15.6 -afebrile #Hypokalemia - resolved #Asthma -Duonebs PRN #FEN -LR @125 -monitor lytes -clear liquid diet #Prophy -holding AC as pt post op #Dispo -admit to med surg Visit type - Emergency Visit Emergency Visit: Yes ED Registration Date: 08/14/17 Care time: The patient presented to the Emergency Department on the above date and was hospitalized for further evaluation of their emergent condition. - New Patient This patient is new to me today: No - Critical Care Critical Care patient: No
--- NOTE | 2017-08-24 13:54 | PATH ---
Cytology Non-Gynecological Report Patient Name: SANDRA CHANDLER [facility]. Rec. #: [id number] /Age/Gender: 1970 (Age: 47) / F Account: [id number] Location: [facility] R Taken: 08/23/2017 Received: 08/23/2017 Reported: 08/24/2017 Physicians: MD Sobeida Lopez M.D. Specimen(s) Received PELVIC WASHINGS Clinical History None given Final Diagnosis PELVIC WASHING FOR CYTOLOGY: SATISFACTORY FOR EVALUATION BUT LIMITED BY LACK OF AN INTACT EPITHELIAL COMPONENT. BENIGN (NO MALIGNANT CELLS IDENTIFIED). BLOOD ONLY Comment: Also see [id number]. Electronically Signed Rob Titus M.D. Gross Description Approximately 50 cc of bloody fluid received fresh. Two cytofunnels and one cellblock prepared.
[2017-08-25] MEDS: ACETAMINOPHEN 325 MG TABLET (FP) PO SCH ×4 (00:25→17:38)
[2017-08-25] MEDS: KETOROLAC TROMETHAMINE 30 MG/1 ML VIAL IVPUSH SCH ×3 (00:26→11:38)
[2017-08-25 09:48] LABS: BASO % 0.9 % (0-2.0); EOS % 1.4 % (0-4.5); HEMATOCRIT 32.5 % (32.4-45.2); HEMOGLOBIN 10.6 GM/dL (10.7-15.3); MCHC 32.5 g/dl (32.0-36.0); MEAN PLT VOLUME 6.4 fl (7.5-11.1); MONO % 3.3 % (3.8-10.2); NEUT % 78.4 % (42.8-82.8); PLATELET COUNT 659 K/MM3 (134-434); RBC 3.92 M/mm3 (3.60-5.2); RDW 16.9 % (11.6-15.6); WHITE BLOOD COUNT 9.4 K/mm3 (4.0-10.0)
[2017-08-25 10:16] LABS: ALBUMIN 2.3 g/dl (3.4-5.0); ANION GAP 4 (8-16); BILIRUBIN,TOTAL 0.1 mg/dL (0.2-1.0); BLOOD UREA NITROGEN 14 mg/dL (7-18); CALCIUM 8.6 mg/dL (8.5-10.1); CHLORIDE 104 mmol/L (98-107); CO2 30 mmol/L (21-32); CREATININE 0.7 mg/dL (0.55-1.02); GLUCOSE,RANDOM 142 mg/dL (74-106); POTASSIUM 3.7 mmol/L (3.5-5.1); SGOT/AST 14 U/L (15-37); SGPT/ALT 24 U/L (12-78); SODIUM 138 mmol/L (136-145); TOT PROT 6.4 g/dl (6.4-8.2)
[2017-08-25 10:17] LABS: ALK PHOS 120 U/L (45-117)
--- NOTE | 2017-08-25 13:20 | PN ---
Physical Exam: SUBJECTIVE: Patient seen and examined at bedside. No events overnight. no new complaints. Patient passed flatus and had BM overnight. Pain controlled. OBJECTIVE: Vital Signs Period Temp Pulse Resp BP Sys/Solares Pulse Ox Last 24 Hr 97.9 F-98.2 F 72-88 18-20 99-115/60-76 GENERAL: The patient is awake, alert, and fully oriented, in no acute distress. HEAD: Normal with no signs of trauma. LUNGS: Breath sounds equal, clear to auscultation bilaterally, no wheezes, no crackles, no accessory muscle use. HEART: Regular rate and rhythm, S1, S2 without murmur, rub or gallop. ABDOMEN: Soft, nontender, nondistended, obese, normoactive bowel sounds. Original surgical bandage from OR in place, IMPLEMENTATION MANAGER to remove today. Patient tender over incision site. EXTREMITIES: 2+ pulses, warm, well-perfused, no edema. NEUROLOGICAL: Cranial nerves II through X grossly intact. Normal speech, gait not observed. PSYCH: Normal mood, normal affect. SKIN: Warm, dry, normal turgor, no rashes or lesions noted Laboratory Results - last 24 hr 08/25/17 08/25/17 09:25 09:25 WBC 9.4 D RBC 3.92 Hgb 10.6 L Hct 32.5 MCV 83.0 MCH 27.0 MCHC 32.5 RDW 16.9 H Plt Count 659 H MPV 6.4 L Neutrophils % 78.4 Lymphocytes % 16.0 D Monocytes % 3.3 L Eosinophils % 1.4 D Basophils % 0.9 D Sodium 138 Potassium 3.7 Chloride 104 Carbon Dioxide 30 Anion Gap 4 L BUN 14 Creatinine 0.7 Creat Clearance w eGFR > 60 Random Glucose 142 H Calcium 8.6 Total Bilirubin 0.1 L D AST 14 L ALT 24 Alkaline Phosphatase 120 H Total Protein 6.4 Albumin 2.3 L Active Medications Generic Name Dose Route Start Last Admin Trade Name Freq PRN Reason Stop Dose Admin Acetaminophen 650 mg 08/23/17 18:30 08/25/17 11:40 Tylenol - PO 650 mg Q6H UZMA Administration Lactated Ringer's 1,000 mls @ 125 mls/hr 08/23/17 12:54 08/24/17 09:00 Lactated Ringers Solution IV 125 mls/hr ASDIR UZMA Administration Ketorolac Tromethamine 30 mg 08/23/17 12:30 08/25/17 11:38 Toradol Injection - IVPUSH 08/28/17 12:29 30 mg Q6H UZMA Administration Ondansetron HCl 4 mg 08/23/17 12:54 Zofran Injection IVPUSH Q6H PRN NAUSEA AND/OR VOMITING ASSESSMENT/PLAN: This is a 47 yo f w/ PMH asthma and uterine fibroids who is being admitted for workup of fever and leukocytosis. #Abdominal mass on CT; POD #3 -IMPLEMENTATION MANAGER onboard -Tumor markers WNL -s/p total abdominal hysterectomy, b/l salpingoophrectomy. -TECHNICAL RECRUITER d/c; on PO oxy 5 and toradol -WBC WNL today -afebrile >24h -advance diet #Hypokalemia - resolved #Asthma -Duonebs PRN #FEN -LR @125 -monitor lytes -regular diet #Prophy -patient ambulating #Dispo -admit to gynecological assistant floor Visit type - Emergency Visit Emergency Visit: Yes ED Registration Date: 08/14/17 Care time: The patient presented to the Emergency Department on the above date and was hospitalized for further evaluation of their emergent condition. - New Patient This patient is new to me today: No - Critical Care Critical Care patient: No
--- NOTE | 2017-08-25 13:35 | OP ---
DATE OF OPERATION: 08/23/2017 PREOPERATIVE DIAGNOSES: 1. Abdominal/pelvic mass, fevers, and leukocytosis. 2. Morbid obesity. POSTOPERATIVE DIAGNOSES: 1. Abdominal/pelvic mass, fevers, and leukocytosis. 2. Morbid obesity. PROCEDURE: Total abdominal hysterectomy and bilateral salpingo-oophorectomy, lysis of adhesions, and omentectomy and radical excision of pelvic mass. SURGEON: Carlee Elder MD ENVIRONMENTAL ENGINEER: Naomy Gonzalez MD ANESTHESIA: General endotracheal. ESTIMATED BLOOD LOSS: 400 mL COMPLICATIONS: None. INDICATIONS: This is a 47-year-old, 4, para 3, who presented to the hospital complaining of fevers. She denied any abdominal pain. She was found to have leukocytosis, and her white count today was 26. Patient reported having her menses every several months. She had a D&C in the operating room with Dr. Gonzalez last week, which returned benign. CT scan showed a large, 24-cm mass, questionably consistent with a pedunculated myoma extending to the upper abdomen. No lymphadenopathy or ascites was seen. CA-125 was 32.4, CEA was 2.8, and CA19-9 was 8. Patient was counseled regarding surgical management. Risks, benefits, indications, alternatives were discussed with the patient. All questions were answered. Informed consent was signed. FINDINGS: Large mass arising from the right adnexa with a broad base. Right tube and ovary were otherwise not seen. Left ovary was cystic and enlarged and had extensive adhesions to the sigmoid colon. The appendix had adhesions to the pelvic mass. These were freed. The omentum was adherent to the anterior abdominal wall from prior surgery. The diaphragm edge was smooth. Liver edge was smooth. There was extensive adiposity in the abdomen precluding adequate lymph node assessment. DESCRIPTION OF PROCEDURE: The patient was taken to the operating room, placed in the dorsal supine position. General endotracheal anesthesia was obtained. She was prepped and draped in normal sterile fashion. A Pandya catheter was placed in the bladder. A vertical midline skin incision was made overlying her previous scar and extended above the umbilicus. This incision was carried down to the fascia. The fascia was opened in the midline. Rectus muscles were . The peritoneum was identified and entered sharply. Extensive omental adhesions were seen to the anterior abdominal wall. These were freed. The mass was able to be exteriorized and noted to be arising from the right adnexa. The mass was exteriorized. The right retroperitoneum was opened. The right ureter was palpated and noted to be deep in the pelvis, well below the field of dissection. Infundibulopelvic ligament was clamped, transected, and ligated with a free tie of 0 Vicryl and suture ligated with 0 Vicryl. The mass had such a broad base on the uterus that it was determined to keep the mass intact during the hysterectomy. The right round ligament was divided. The left retroperitoneum was opened. The left round ligament was transected and divided. The left ureter was palpated and visually identified, and noted to be well away from the field of dissection. The infundibulopelvic ligament was doubly clamped, transected, ligated with a free tie of 0 Vicryl and suture ligated with 0 Vicryl. Excellent hemostasis was seen. A bladder flap was created anteriorly, dissecting the bladder off the anterior cervix and upper vagina. The cervix was very elongated, over 10 cm. There were extensive adhesions of the sigmoid colon to the left adnexa. These were freed. This had been performed prior to taking the infundibulopelvic ligament. The sigmoid colon was freed with sharp dissection from the ovary on the left. The ovary on the left did appear mildly enlarged, approximately 5 cm in size. The bladder was dissected off the anterior cervix and upper vagina. Uterine arteries were clamped, transected, and transected and suture ligated with 0 Vicryl. The cardinal ligaments were serially clamped, transected , and suture ligated with 0 Vicryl. Uterosacral ligaments were clamped, transected, and suture ligated. Two Zeppelin clamps were placed distally across the cervix. The cervix was amputated from the vagina. Cervix, uterus, ovaries, and tubes were handed off the field for frozen section. It returned spindle cell neoplasm defer to permanent. The vaginal cuff was closed in a running locked fashion in the midline. The pelvis was thoroughly irrigated and noted to be hemostatic. The distal omentum which was adherent to the anterior abdominal wall was removed, taking serial pedicles with Saniya clamps and ligating with 0 Vicryl. This was handed off the field as omentum. Again, the abdomen and pelvis were examined and noted to be hemostatic. Sponge, needle, and instrument counts were correct x2. The fascia was closed in a running continuous fashion using number 1 looped PDS with multiple retention sutures of 0 Vicryl. Subcutaneous fat was irrigated copiously with saline, and serial interrupted dermal stitches of 3-0 Vicryl were placed. Skin was closed with trudy. Patient was extubated and transferred in stable condition to the PACU. Kolby [id number] [facility]
--- NOTE | 2017-08-25 13:49 | PN ---
Teaching Attending Note Name of Resident: Gerard Painter ATTENDING PHYSICIAN STATEMENT I saw and evaluated the patient. I reviewed the resident's note and discussed the case with the resident. I agree with the resident's findings and plan as documented. SUBJECTIVE: Patient is comfortable sitting in chair. She has been ambulating and is tolerating clear liquids. OBJECTIVE: Vital Signs Period Temp Pulse Resp BP Sys/Solares Pulse Ox Last 24 Hr 97.9 F-98.2 F 72-76 18-20 110-115/63-76 HEART: S1S2, RRR LUNGS: Clear ABDOMEN: Obese, soft, mildly distended, non-tender, normal BS EXTREMITIES: No edema Laboratory Results - last 24 hr 08/25/17 08/25/17 09:25 09:25 WBC 9.4 D RBC 3.92 Hgb 10.6 L Hct 32.5 MCV 83.0 MCH 27.0 MCHC 32.5 RDW 16.9 H Plt Count 659 H MPV 6.4 L Neutrophils % 78.4 Lymphocytes % 16.0 D Monocytes % 3.3 L Eosinophils % 1.4 D Basophils % 0.9 D Sodium 138 Potassium 3.7 Chloride 104 Carbon Dioxide 30 Anion Gap 4 L BUN 14 Creatinine 0.7 Creat Clearance w eGFR > 60 Random Glucose 142 H Calcium 8.6 Total Bilirubin 0.1 L D AST 14 L ALT 24 Alkaline Phosphatase 120 H Total Protein 6.4 Albumin 2.3 L Current Medications Generic Name Dose Route Start Last Admin Trade Name Freq PRN Reason Stop Dose Admin Acetaminophen 650 mg 08/23/17 18:30 08/25/17 11:40 Tylenol - PO 650 mg Q6H UZMA Administration Lactated Ringer's 1,000 mls @ 125 mls/hr 08/23/17 12:54 08/24/17 09:00 Lactated Ringers Solution IV 125 mls/hr ASDIR UZMA Administration Ketorolac Tromethamine 30 mg 08/23/17 12:30 08/25/17 11:38 Toradol Injection - IVPUSH 08/28/17 12:29 30 mg Q6H UZMA Administration Ondansetron HCl 4 mg 08/23/17 12:54 Zofran Injection IVPUSH Q6H PRN NAUSEA AND/OR VOMITING ASSESSMENT AND PLAN: This is a 47 year old woman with a history of asthma, fibroids, morbid obesity who presented to the ED with fever, diarrhea, abdominal cramping. 1. Uterine leiomyoma - s/p VJ-BSO / 2. SIRS secondary to uterine leiomyoma - Resolved - No evidence of infection 3. Hyponatremia, hypokalemia - Resolved 4. Hepatic transaminitis - Resolved 5. Asthma - Stable - Albuterol nebs as needed 6. Diarrhea - resolved 7. Morbid obesity with BMI 52.1
--- NOTE | 2017-08-25 14:28 | MSN ---
Progress Note (short form) - Note Progress Note: SUBJECTIVE: Patient seen and examined at bedside this morning. No overnight events. Her pain is controlled. She denies fevers, chest pain, SOB, calf tenderness, or abdominal pain. Incision site is covered by surgical dressing but no evidence of drainage or erythema surrounding the bandage. She reports passage of flatus and is tolerating clear liquids but has not had a bowel movement. She is ambulating to the bathroom without assistance. OBJECTIVE: Vital Signs Period Temp Pulse Resp BP Sys/Solares Pulse Ox Last 24 Hr 97.9 F-98.2 F 72-76 18-20 110-115/63-76 GENERAL: Patient is lying in bed, awake, alert, and orientated holding pillow over abdomen in no acute distress. HEAD: Normocephalic, atraumatic NECK: Supple, no lymphadenopaty LUNGS: Clear to auscultation b/l, no wheezes or crackles CARDIOVASCULAR: No JVD, Heart regular at 70 bpm S1/S2 w/o murmur, rubs or gallops ABDOMEN:Suprapubic surgical dressing in place w/o surrounding edema or erythema , tenderness at incision site; normoactive bowel sounds, obese, soft EXTREMITIES: 2+ pulses b/l UE/LE; capillary refill <2 secs NEURO: CN II-XII grossly intact; 5/5 muslce strength throughout; normal speech Laboratory Results - last 24 hr 08/25/17 08/25/17 09:25 09:25 WBC 9.4 D RBC 3.92 Hgb 10.6 L Hct 32.5 MCV 83.0 MCH 27.0 MCHC 32.5 RDW 16.9 H Plt Count 659 H MPV 6.4 L Neutrophils % 78.4 Lymphocytes % 16.0 D Monocytes % 3.3 L Eosinophils % 1.4 D Basophils % 0.9 D Sodium 138 Potassium 3.7 Chloride 104 Carbon Dioxide 30 Anion Gap 4 L BUN 14 Creatinine 0.7 Creat Clearance w eGFR > 60 Random Glucose 142 H Calcium 8.6 Total Bilirubin 0.1 L D AST 14 L ALT 24 Alkaline Phosphatase 120 H Total Protein 6.4 Albumin 2.3 L Current Medications Generic Name Dose Route Start Last Admin Trade Name Freq PRN Reason Stop Dose Admin Acetaminophen 650 mg 08/23/17 18:30 08/25/17 11:40 Tylenol - PO 650 mg Q6H UZMA Administration Lactated Ringer's 1,000 mls @ 125 mls/hr 08/23/17 12:54 08/24/17 09:00 Lactated Ringers Solution IV 125 mls/hr ASDIR UZMA Administration Ketorolac Tromethamine 30 mg 08/23/17 12:30 08/25/17 11:38 Toradol Injection - IVPUSH 08/28/17 12:29 30 mg Q6H UZMA Administration Ondansetron HCl 4 mg 08/23/17 12:54 Zofran Injection IVPUSH Q6H PRN NAUSEA AND/OR VOMITING ASSESSMENT/PLAN: 47 yr old female with a history of asthma and uterine leiomyomas who presented to the ER with one week of fevers and diarrhea. She was admitted for work-up of the fever and was found to have leukocytosis and a uterine mass. #Abdominal mass found on CT -Patient POD #3; s/p VJ with BSO -Following with LEASE ADMINISTRATION SUPERVISOR -Afebrile x 3 days -Pain controlled with IV Toradol 30 mg Q6H and PO APAP 625mg Q6H -Surgical pathology report pending for uterine and ovarian tissue -Advance diet from clear liquids as tolerated #Leukocytosis-Resolved -WBC 9.4 #Thrombocytosis -Possibly reactive; continue to trend platelet count -4/2 platelets 713; 4/3 platelets 610; 4/4 platelets 659 #FEN -Patient tolerating PO liquids -Advance to regular diet #DVT prophylaxis -Patient is ambulating #Dispo -Admit to LEASE ADMINISTRATION SUPERVISOR floor
--- NOTE | 2017-08-25 15:44 | PN ---
Progress Note (short form) - Note Progress Note: 47 yo Para 2 with enlarged uterus associated with a large myoma, status post VJ / BSO, seen and evaluated. She's doing well, afebrile; she tolerates regular diet. White count significantly decreased. PE : Chest : CTA, no rales ABD : Soft, obese. Dressing dry and intact, no bleeding. EXT : No calf tenderness A / P : Leiomyoma of the uterus Leukocytosis Status post VJ / BSO Stable Ambulation D/ C IVF Discharge home in AM Problem List - Problems (1) Abdominal mass Code(s): R19.00 - INTRA-ABD AND PELVIC SWELLING, MASS AND LUMP, UNSP SITE (2) Fibroid uterus Code(s): D25.9 - LEIOMYOMA OF UTERUS, UNSPECIFIED (3) Status post total abdominal hysterectomy and bilateral salpingo- oophorectomy (VJ-BSO) Code(s): Z90.710 - ACQUIRED ABSENCE OF BOTH CERVIX AND UTERUS; Z90.722 - ACQUIRED ABSENCE OF OVARIES, BILATERAL; Z90.79 - ACQUIRED ABSENCE OF OTHER GENITAL ORGAN(S)
[2017-08-25 22:37] VITALS: PULSE 84
[2017-08-26] MEDS: ACETAMINOPHEN 325 MG TABLET (FP) PO SCH ×3 (00:28→12:22)
--- NOTE | 2017-08-26 08:09 | PN ---
Progress Note, Physician Chief Complaint: ID Day 3 post removal large myoma - Current Medication List Current Medications: Active Medications Acetaminophen (Tylenol -) 650 mg PO Q6H UZMA Last Admin: 08/26/17 06:12 Dose: 650 mg - Objective Vital Signs: Vital Signs Temperature 97.8 F 08/25/17 22:00 Pulse Rate 84 08/25/17 22:00 Respiratory Rate 18 08/25/17 22:00 Blood Pressure 103/53 08/25/17 22:00 O2 Sat by Pulse Oximetry (%) 98 08/25/17 21:00 Constitutional: Yes: No Distress Cardiovascular: Yes: S1, S2 Respiratory: Yes: WNL, Regular, CTA Bilaterally Gastrointestinal: Yes: Soft, Other ( intact wound trudy clean) Labs: CBC, BMP 08/25/17 09:25 08/25/17 09:25 INR, PTT INR 1.35 (0.82-1.09) H 08/23/17 07:46 Assessment/Plan Microbiology 08/20/17 18:00 Blood - Peripheral Venous Blood Culture - Final NO GROWTH AFTER 5 DAYS INCUBATION 08/20/17 17:43 Urine - Urine Clean Catch Urine Culture - Final NO GROWTH OBTAINED 08/16/17 16:07 Stool Gram Stain - Final 08/16/17 16:07 Stool Escherichia coli 0157 Culture - Final NO GROWTH OF CAMPYLOBACTER SPECIES OBTAINED NO GROWTH OF VIBRIO SPECIES OBTAINED NO GROWTH OF E COLI 0157 OBTAINED Laboratory Tests 08/25/17 08/25/17 09:25 09:25 WBC 9.4 D Hgb 10.6 L Hct 32.5 Plt Count 659 H BUN 14 Creatinine 0.7 Assessment day 3 post op stable afebrile normal WBC count Post resection mass Plan Discharge planning Jody BASHIR
[2017-08-26 08:39] LABS: HEMATOCRIT 32.5 % (32.4-45.2); HEMOGLOBIN 10.7 GM/dL (10.7-15.3); MCH 27.2 pg (25.7-33.7); MCHC 32.8 g/dl (32.0-36.0); MEAN CELL VOLUME 82.7 fl (80-96); MEAN PLT VOLUME 6.5 fl (7.5-11.1); PLATELET COUNT 674 K/MM3 (134-434); RBC 3.93 M/mm3 (3.60-5.2); RDW 16.4 % (11.6-15.6); WHITE BLOOD COUNT 6.7 K/mm3 (4.0-10.0)
[2017-08-26 09:03] LABS: ANION GAP 12 (8-16); BLOOD UREA NITROGEN 12 mg/dL (7-18); CALCIUM 8.8 mg/dL (8.5-10.1); CHLORIDE 104 mmol/L (98-107); CO2 27 mmol/L (21-32); CREATININE 0.5 mg/dL (0.55-1.02); GLUCOSE,RANDOM 93 mg/dL (74-106); POTASSIUM 4.4 mmol/L (3.5-5.1); SODIUM 143 mmol/L (136-145)
[2017-08-26 09:34] VITALS: BP 130/71; TEMP 97.6
--- NOTE | 2017-08-26 11:04 | PN ---
Teaching Attending Note Name of Resident: Gerard Painter ATTENDING PHYSICIAN STATEMENT I saw and evaluated the patient. I reviewed the resident's note and discussed the case with the resident. I agree with the resident's findings and plan as documented. SUBJECTIVE: Patient has no complaints. OBJECTIVE: Vital Signs Period Temp Pulse Resp BP Sys/Solares Pulse Ox Last 24 Hr 97.6 F-97.8 F 84-84 18-18 103-130/53-71 98 HEART: S1S2, RRR LUNGS: Clear ABDOMEN: Obese, soft, non-tender, non-distended, normal BS EXTREMITIES: No edema Laboratory Results - last 24 hr 08/26/17 08/26/17 07:45 07:45 WBC 6.7 RBC 3.93 Hgb 10.7 Hct 32.5 MCV 82.7 MCH 27.2 MCHC 32.8 RDW 16.4 H Plt Count 674 H MPV 6.5 L Sodium 143 Potassium 4.4 Chloride 104 Carbon Dioxide 27 Anion Gap 12 BUN 12 Creatinine 0.5 L Random Glucose 93 Calcium 8.8 Current Medications Generic Name Dose Route Start Last Admin Trade Name Freq PRN Reason Stop Dose Admin Acetaminophen 650 mg 08/23/17 18:30 08/26/17 06:12 Tylenol - PO 650 mg Q6H UZMA Administration ASSESSMENT AND PLAN: This is a 47 year old woman with a history of asthma, fibroids, morbid obesity who presented to the ED with fever, diarrhea, abdominal cramping and was found to have a large uterine mass. 1. Uterine leiomyoma - s/p VJ-BSO 4/2 2. SIRS secondary to uterine leiomyoma - Resolved - No evidence of infection 3. Thrombocytosis, likely reactive - Will need outpatient follow-up 4. Hyponatremia, hypokalemia - Resolved 5. Hepatic transaminitis - Resolved 6. Asthma - Stable - Albuterol nebs as needed 7. Diarrhea - resolved 8. Morbid obesity with BMI 52.1 9. Disposition - Expect discharge today
--- NOTE | 2017-08-26 11:26 | MSN ---
Physical Examination Vital Signs: SUBJECTIVE: Patient seen and examined this morning. No overnight events. POD #3 s/p VJ BSO. She has no pain and is ready to be discharged to home with her . She is taking PO APAP 650 mg Q6H as needed to manage post-op pain. She has been eating well, ambulating on her own, and had a bowel movement on 08/25. She is comfortable following-up with Dr. Gonzalez as an outpatient for staple removal. She denies Abd pain, SOB, chest pain, leg swelling or fevers. OBJECTIVE: Vital Signs Temperature 97.6 F 08/26/17 09:33 Pulse Rate 84 08/26/17 09:33 Respiratory Rate 18 08/26/17 09:33 Blood Pressure 130/71 08/26/17 09:33 O2 Sat by Pulse Oximetry (%) 98 08/25/17 21:00 PHYSICAL EXAM: GENERAL: Well-appearing woman reclining comfortably in chair HEAD: Normocephalic, atraumatic NECK: Supple without lymphadenapathy CARDIOVASCULAR: Regular at 76 bpm; normal S1/S2 without murmurs, rubs, or gallops LUNGS: Clear to ausculatation b/l without wheezes or crackles ABD: Original surgical dressing intact across suprapubic region w/o surrounding erythema or edema; Normoactive bowel sounds, obese, soft, non-tender abdomen EXTREMITIES: 2+ pulses UE/LE b/l, no edema NEURO: CN II-XII grossly intact, normal speech, did not observe ambulation Findings/Remarks: Date of Admission: 08/14/2017 Hospital Course: Patient is a 47 yr old woman with a history of asthma and uterine fibroids who presented to the ED with the chief complaint of one week of fevers and diarrhea. During evaluation in the ED the patient was found to have WBC of 35.5 with a normal differentiation. Abdominal CT also demonstrated a 24 cm pelvic mass consistent with a fundal myoma. The patient was admitted for SIRS work-up and for evaluation of the pelvic mass. Infectious disease was consulted for evaluation of the fever and MACHINE CERAMIC COATER was consulted for evaluation of the pelvic mass. Per recommendation of infectious disease, the patient was started on Rochepin and Flagyl. Cultures of blood, urine, and stool returned without growth. The patient underwent an endometrial biopsy which demonstrated benign endometrial epithelium without evidence of hyperplasia or carcinoma. On 08/22 antibiotics were discontinued as it was believed the patient's fever was secondary to a necrotic leiomyoma. 08/[address] Gonzalez [address]. Elder took the patient to the OR for a total abdominal hysterectomy and b/l salpingo- oophorectomy. The patient tolerated the procedure well. POD #2 the patient's WBC was WNL at 9.4. At the time of discharge WBC WNL at 6.7. Patient has been afebrile for 4 days. Her post-op pain is currently controlled with PO Acetaminophen 650 mg Q6H as needed at time of discharge. She was advised to continue to monitor the surgical incision site for erythema or edema and to follow-up with Dr. Gonzalez as an outpatient for staple removal in 10 days and review of the intra-operative pathology. She was advised to continue to follow healthy lifestyle choices including making nutritious eating, moderate exercise , and adequate sleep a priority. Date of Discharge: 08/26/2017 Labs: CBC, BMP 08/26/17 07:45 08/26/17 07:45 Discharge Summary Reason For Visit: ELEVATED WHITE COUNT WITH UIT Current Active Problems Elevated WBC count (Acute) FUO (fever of unknown origin) (Acute) Abdominal mass (Acute) Fibroid uterus (Acute) Status post total abdominal hysterectomy and bilateral salpingo-oophorectomy ( VJ-BSO) (Acute) Condition: Improved - Instructions Diet, Activity, Other Instructions: You were admitted for the treatment of your fevers and your fibroid. You may take Tylenol for any pain you may experience after you get home. You should follow up with Dr. Gonzalez to have your stitches taken out. Information for her office will be included in your discharge papers. Please call to make an appointment. While in the hospital, your platelets were found to be elevated. You will need to follow up with your primary care physician in 1 week in order to repeat your blood test and make sure that they are coming down. Information for Dr. Mckeon has been included in your discharge paperwork. Please call to make an appointment. If you begin to experience chest pain, shortness of breath, worsening abdominal pain or if any of your symptoms get worse, please call your doctor or return to the to the emergency department. Referrals: Naomy Gonzalez MD [Staff Physician] - Lanny Kang MD [Primary Care Provider] - Disposition: HOME - Home Medications Comprehensive Discharge Medication List: Ambulatory Orders NK [No Known Home Medication] 08/14/17
--- NOTE | 2017-08-26 13:29 | DS ---
Physical Exam-PHOTOENGRAVING RETOUCHER Vital Signs: Vital Signs Temperature 97.6 F 08/26/17 09:33 Pulse Rate 84 08/26/17 09:33 Respiratory Rate 18 08/26/17 09:33 Blood Pressure 130/71 08/26/17 09:33 O2 Sat by Pulse Oximetry (%) 98 08/25/17 21:00 Constitutional: Yes: Well Nourished Eyes: Yes: Conjunctiva Clear HENT: Yes: Atraumatic Cardiovascular: Yes: Regular Rate and Rhythm Respiratory: Yes: Regular Gastrointestinal: Yes: Normal Bowel Sounds, Other (Conor in place) External Genitalia: Yes: Normal Breast(s): Yes: WNL Wound/Incision: Yes: Well Approximated, [place] Intact Neurological: Yes: Alert, Oriented ...Motor Strength: WNL Psychiatric: Yes: Alert, Oriented Labs: CBC, BMP 08/26/17 07:45 08/26/17 07:45 Discharge Summary Reason For Visit: ELEVATED WHITE COUNT WITH UIT Current Active Problems Abdominal mass (Acute) Elevated WBC count (Acute) FUO (fever of unknown origin) (Acute) Fibroid uterus (Acute) Status post total abdominal hysterectomy and bilateral salpingo-oophorectomy ( VJ-BSO) (Acute) Procedures: Principal: VJ / BSO Hospital Course: Patient admitted for abdominal pain. She was found to have an abdominal mass associated with leukocytosis. She was taken to OR for VJ / BSO after which Leukocytosis resolved. No blood transfusion required. ID consulted; she received several doses of antibiotic. Condition: Improved - Instructions Diet, Activity, Other Instructions: You were admitted for the treatment of your fevers and your fibroid. You may take Tylenol for any pain you may experience after you get home. You should follow up with Dr. Gonzalez to have your stitches taken out. Information for her office will be included in your discharge papers. Please call to make an appointment. While in the hospital, your platelets were found to be elevated. You will need to follow up with your primary care physician in 1 week in order to repeat your blood test and make sure that they are coming down. Information for Dr. Mckeon has been included in your discharge paperwork. Please call to make an appointment. If you begin to experience chest pain, shortness of breath, worsening abdominal pain or if any of your symptoms get worse, please call your doctor or return to the to the emergency department. Referrals: Naomy Gonzalez MD [Staff Physician] - Lanny Kang MD [Primary Care Provider] - Disposition: HOME - Home Medications Comprehensive Discharge Medication List: Ambulatory Orders NK [No Known Home Medication] 08/14/17
--- NOTE | 2017-08-26 14:10 | PN ---
Physical Exam: SUBJECTIVE: Patient seen and examined at bedside. Pain controlled w/ PO tylenol. For discharge today. No new complaints. OBJECTIVE: Vital Signs Period Temp Pulse Resp BP Sys/Solares Pulse Ox Last 24 Hr 97.6 F-97.8 F 84-84 -18 103-130/53-71 98 GENERAL: The patient is awake, alert, and fully oriented, in no acute distress. HEAD: Normal with no signs of trauma. NECK: Trachea midline, full range of motion, supple. LUNGS: Breath sounds equal, clear to auscultation bilaterally, no wheezes, no crackles, no accessory muscle use. HEART: Regular rate and rhythm, S1, S2 without murmur, rub or gallop. ABDOMEN: Soft, nontender, nondistended, normoactive bowel sounds, no guarding, no rebound, no hepatosplenomegaly, no masses. surgical dressing in place. EXTREMITIES: 2+ pulses, warm, well-perfused, no edema. NEUROLOGICAL: Cranial nerves II through X grossly intact. Normal speech, gait not observed. PSYCH: Normal mood, normal affect. SKIN: Warm, dry, normal turgor, no rashes or lesions noted Laboratory Results - last 24 hr 08/26/17 08/26/17 07:45 07:45 WBC 6.7 RBC 3.93 Hgb 10.7 Hct 32.5 MCV 82.7 MCH 27.2 MCHC 32.8 RDW 16.4 H Plt Count 674 H MPV 6.5 L Sodium 143 Potassium 4.4 Chloride 104 Carbon Dioxide 27 Anion Gap 12 BUN 12 Creatinine 0.5 L Random Glucose 93 Calcium 8.8 Active Medications Generic Name Dose Route Start Last Admin Trade Name Josephq PRN Reason Stop Dose Admin Acetaminophen 650 mg 08/23/17 18:30 08/26/17 12:22 Tylenol - PO 650 mg Q6H UZMA Administration ASSESSMENT/PLAN: This is a 47 yo f w/ PMH asthma and uterine fibroids who is being admitted for workup of fever and leukocytosis. #Abdominal mass on CT; POD #4 -INFORMATION SYSTEMS SECURITY MANAGER onboard -Tumor markers WNL -s/p total abdominal hysterectomy, b/l salpingoophrectomy. -PO tylenol for pain -WBC WNL today -afebrile >24h #Hypokalemia - resolved #Asthma -Duonebs PRN #FEN -LR @125 -monitor lytes -regular diet #Prophy -patient ambulating #Dispo -Discharge today Visit type - Emergency Visit Emergency Visit: Yes ED Registration Date: 08/14/17 Care time: The patient presented to the Emergency Department on the above date and was hospitalized for further evaluation of their emergent condition. - New Patient This patient is new to me today: No - Critical Care Critical Care patient: No
--- NOTE | 2017-08-26 16:46 | PATH ---
Surgical Pathology Report Patient Name: SANDRA CHANDLER Med. Rec. #: [id number] /Age/Gender: 1970 (Age: 47) / F Account: [id number] Location: [facility] R Taken: 08/23/2017 Received: 08/23/2017 Reported: 08/26/2017 Physicians: Sobeida Ybarra M.D. Specimen(s) Received A: UTERUS AND CERVIX, BILATERAL TUBES AND OVARIES B: OMENTUM Clinical History Pelvic mass Intraoperative Consult Diagnosis Uterus and cervix with bilateral fallopian tubes and ovaries, frozen section 1 and 2: Uterus with cellular spindle cell neoplasm, defer to permanent sections. Ovary with benign serous cystadenoma. Juan Antonio Titus M.D., 08/23/17. Final Diagnosis A. UTERUS AND CERVIX WITH BILATERAL FALLOPIAN TUBES AND OVARIES, HYSTERECTOMY AND BILATERAL SALPINGO-OOPHORECTOMY: UTERUS AND CERVIX, 3966 GRAMS, WITH LARGE (20 CM) SPINDLE CELL LESION CONSISTENT WITH CELLULAR LEIOMYOMA WITH DEGENERATIVE CHANGES, ADDITIONAL LEIOMYOMA, FOCAL SIMPLE ENDOMETRIAL HYPERPLASIA WITHOUT ATYPIA ARISING IN A BACKGROUND OF DISORDERED PROLIFERATIVE ENDOMETRIUM WITH AREAS CONSISTENT WITH BENIGN ENDOMETRIAL POLYP, AND CERVIX WITH CHRONIC INFLAMMATION. RIGHT OVARY WITH MULTIPLE EPITHELIAL INCLUSION CYSTS, WITH AREA SUGGESTIVE OF SMALL BENIGN SEROUS CYSTADENOMA. BENIGN RIGHT FALLOPIAN TUBE WITH VASCULAR CONGESTION AND EDEMA. LEFT OVARY WITH BENIGN SEROUS CYSTADENOMA, AND FOCAL ENDOMETRIOSIS. BENIGN LEFT FALLOPIAN TUBE PRESENT. B. OMENTUM, PARTIAL EXCISION: BENIGN ADIPOSE TISSUE WITH ADMIXED BLOOD VESSELS CONSISTENT WITH PORTION OF OMENTUM. Comment: Immunohistochemical stains on a section from the large uterine mass performed at [facility], [place], [place] ([id number]) and interpreted at [facility] show the following results: The spindle cells stain with smooth muscle actin, but do not stain with CD10 or p16. Ki67 shows a low proliferative index with less than 5% of cells showing nuclear staining. 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 Electronically Signed Rob Titus M.D. Gross Description A. Received fresh labeled "uterus and cervix, bilateral fallopian tube and bilateral ovaries," is a 3966 g hysterectomy specimen including a uterus, attached cervix, attached bilateral fallopian tubes and ovaries. There is a 20 cm in greatest dimension mass attached to the right ovary. The uterus measures 15 cm from superior to inferior, 7 cm from left to right and 8 cm from anterior to posterior. The serosa is rocha-pink and smooth. The attached cervix measures 7 cm in length and averages 2.8 cm in diameter. The ectocervix is rocha, smooth and glistening. The endocervix is unremarkable. The endometrial cavity measures 6.5 cm in length and 3.3 cm from cornu to cornu. The endometrium is rocha-red and measures up to 0.3 cm in thickness. The myometrium displays a 2 cm in greatest dimension intramural nodule. The cut surface of the nodule is rocha and firm with whorled architecture. The remaining myometrium is rocha-pink and averages 3.8 cm in thickness. Sectioning of the large right mass displays rocha, firm to rubbery parenchyma with foci of hemorrhage and central degeneration. There is a 5.5 cm in length fimbriated, edematous fallopian tube as well as a 2.0 x 1.0 x 1.0 cm possible right ovary attached to the mass. Sectioning of the fallopian tube reveals an unremarkable lumen. Sectioning of the right ovary displays rocha-pink, edematous parenchyma as well as a 1.0 cm in greatest dimension serous cyst. There is no definite left fallopian tube identified. The left ovary measures 6.5 x 4.0 x 3.8 cm. The outer surface is rocha-pink with a cystic appearance. Sectioning reveals multiloculated cystic architecture with serous cysts measuring up to 3.8 cm in greatest dimension. No normal left ovarian parenchyma is identified. Manufacturing Maintenance Technician sections of the right mass as well as the left ovary are submitted for frozen section. Manufacturing Maintenance Technician sections are submitted in 27 cassettes as follows: 1-frozen section residue of right mass; 2-frozen section residue of left ovary; 3-anterior cervix; 4-posterior cervix; 4-2-tbmkxbkf endomyometrium; 8-2-xndynqyny endomyometrium; 9-intramural nodule; 10-17-right mass; 18-right fallopian tube fimbria; 19-cross sections of right fallopian tube; 18-77-bveircxt right ovary; 23-possible left fallopian tube; 24-27-left ovary. B. Received in formalin labeled "omentum," is 11.0 x 10.0 x 1.8 cm portion of yellow, lobulated adipose tissue, consistent with a portion of omentum. Sectioning reveals unremarkable yellow, lobulated adipose tissue. No masses are identified. Manufacturing Maintenance Technician sections are submitted in 3 cassettes. 08/23/2017 regino08/23/2017
== END 2017-08-26 14:45 | disposition home or self-care (01) | DRG 336 ==
LOC: FER 12:12 → J4S 18:55 → J5S 08-18 23:32 → JSAMEDAYSX 08-23 12:00 → J3W 08-23 14:30
PROVIDERS: ADMIT Internal Medicine; ATTEND Internal Medicine
PROC: 0UDB8ZX Extraction of Endometrium, Via Natural or Artificial Opening Endoscopic, Diagnostic (ICD-10-PCS; principal; 2017-08-19 13:30)
PROC: 0DNU0ZZ Release Omentum, Open Approach (ICD-10-PCS; 2017-08-23)
PROC: 0UT90ZZ Resection of Uterus, Open Approach (ICD-10-PCS; 2017-08-23)
PROC: 0UT70ZZ Resection of Bilateral Fallopian Tubes, Open Approach (ICD-10-PCS; 2017-08-23)
PROC: 0UT20ZZ Resection of Bilateral Ovaries, Open Approach (ICD-10-PCS; 2017-08-23)
PROC: 0DBU0ZZ Excision of Omentum, Open Approach (ICD-10-PCS; 2017-08-23)
PROC: 0JBC0ZX Excision of Pelvic Region Subcutaneous Tissue and Fascia, Open Approach, Diagnostic (ICD-10-PCS; 2017-08-23)
DX: R19.09 Other intra-abdominal and pelvic swelling, mass and lump (principal); Z68.43 Body mass index [BMI] 50.0-59.9, adult; E87.1 Hypo-osmolality and hyponatremia; R65.10 Systemic inflammatory response syndrome (SIRS) of non-infectious origin without acute organ dysfunction; D25.9 Leiomyoma of uterus, unspecified; J45.909 Unspecified asthma, uncomplicated; D72.829 Elevated white blood cell count, unspecified; E66.01 Morbid (severe) obesity due to excess calories; E87.6 Hypokalemia; R74.0 Nonspecific elevation of levels of transaminase and lactic acid dehydrogenase [LDH]; N83.202 Unspecified ovarian cyst, left side; D64.9 Anemia, unspecified; D72.823 Leukemoid reaction; R19.7 Diarrhea, unspecified; D47.3 Essential (hemorrhagic) thrombocythemia
CPT/HCPCS: 36415; 71046-TC-FY; 74177-TC; 76705-TC; 76830-TC; 80048; 80053; 81003; 81015; 82378; 82668; 82728; 82784; 83540; 83550; 83605; 83615; 83735; 84100; 84155; 84165; 84703; 85025; 85027; 85044; 85610; 85651; 85730; 86140; 86301; 86304; 86334; 86850; 86900; 86901; 87040; 87045; 87046; 87086; 87177; 87205; 87209; 87324; 87449; 87804; 88108; 88300-TC; 88305-TC; 88307-TC; 88331-TC; 88332; 93970-TC; 94010; 94760; 99283-25; J0131; J1170; J1644; J7030

== ENCOUNTER 2024-01-18 08:56 | Emergency (ER) | payer OTHER ==
[2024-01-18 09:12] VITALS: BP 174/97; PULSE 90; RESP 18; TEMP 98.2; BMI 56.7
== END 2024-01-18 10:30 | disposition home or self-care (01) ==
LOC: FER 08:56
DX: L03.115 Cellulitis of right lower limb (principal); R21 Rash and other nonspecific skin eruption; L29.9 Pruritus, unspecified
CPT/HCPCS: 99283-25

== ENCOUNTER 2024-01-27 16:42 | Inpatient (IN) | payer OTHER ==
[2024-01-27] MEDS ORDERED: predniSONE 20 MG TABLET (UD) ONE (18:20)
[2024-01-27] MEDS ORDERED: diphenhydrAMINE HCL 25 MG CAPSULE (FP) PO ONE (18:20)
[2024-01-27] MEDS: diphenhydrAMINE HCL 50 MG CAPSULE PO ONE (18:30)
[2024-01-27] MEDS: predniSONE 20 MG TABLET (UD) PO ONE (18:30)
[2024-01-27] MEDS ORDERED: PIPERACILLIN/TAZOBACTAM 3.375 GM VIAL IVPB ONE (18:33)
[2024-01-27] MEDS ORDERED: VANCOMYCIN 500 MG VIAL (RESTRICTED TO ID ONLY) ONE (18:33)
[2024-01-27] MEDS ORDERED: VANCOMYCIN 1,000 MG VIAL (RESTRICTED TO ID ONLY) ONE (18:33)
[2024-01-27] MEDS ORDERED: ALBUTEROL SO4 2.5/IPRATROPIUM 0.5 INH SOL 3 ML VIAL.NEB. NEB ONE (18:40)
[2024-01-27] MEDS: PIPERACILLIN/TAZOB 3.375 GM 3.375 GM in DEXTROSE 5%-WATER - 50 ML IVPB ONE (18:49)
[2024-01-27 18:52] LABS: HEMATOCRIT 44.6 % (32.4-45.2); HEMOGLOBIN 14.2 G/dL (10.7-15.3); MCH 27.5 pg (25.7-33.7); MCHC 31.7 g/dl (32.0-36.0); MEAN CELL VOLUME 86.7 fl (80-96); MEAN PLT VOLUME 7.7 fl (7.5-11.1); PLATELET COUNT 314.4 10^3/uL (134-434); RBC 5.14 10^6/uL (3.60-5.2); RDW 15.6 % (11.6-15.6); WHITE BLOOD COUNT 8.7 10^3/uL (4.0-10.8)
[2024-01-27 19:04] LABS: BILIRUBIN,TOTAL 0.6 mg/dl (0.2-1); CALCIUM 9.4 mg/dl (8.5-10.1); CREATININE 0.7 mg/dl (0.6-1.3); POTASSIUM 3.9 mmol/L (3.5-5.1); TOT PROT 7.2 g/dl (6.4-8.2)
[2024-01-27 19:12] LABS: PLATELET ESTIMATE ADEQUATE
[2024-01-27] MEDS: ALBUTEROL SO4 2.5/IPRATROPIUM 0.5 INH SOL 3 ML VIAL.NEB. NEB ONE (19:15)
[2024-01-27] MEDS: VANCOMYCIN PREMIX 1.75 GM 1,750 MG/350 ML PIGGYBACK IVPB ONE (20:02)
[2024-01-27 20:20] LABS: N-TERMINAL BNP 111.4 pg/ml (5-125)
[2024-01-27 23:10] VITALS: BMI 61.0
[2024-01-28] MEDS: PIPERACILLIN/TAZOB 3.375 GM 3.375 GM in DEXTROSE 5%-WATER - 50 ML IVPB SCH ×2 (06:15→17:17)
[2024-01-28 10:27] LABS: HEMOGLOBIN 12.6 G/dL (10.7-15.3); MCH 27.3 pg (25.7-33.7); MCHC 31.4 g/dl (32.0-36.0); MEAN CELL VOLUME 86.9 fl (80-96); MEAN PLT VOLUME 8.1 fl (7.5-11.1); PLATELET COUNT 325.1 10^3/uL (134-434); RDW 15.6 % (11.6-15.6); WHITE BLOOD COUNT 6.1 10^3/uL (4.0-10.8)
[2024-01-28 10:41] LABS: CALCIUM 9.4 mg/dl (8.5-10.1); CREATININE 0.6 mg/dl (0.6-1.3); PHOSPHOROUS 3.5 (2.5-4.9); POTASSIUM 4.2 mmol/L (3.5-5.1)
[2024-01-28] MEDS ORDERED: diphenhydrAMINE HCL 25 MG CAPSULE (FP) PO PRN (12:33)
[2024-01-28] MEDS: predniSONE 20 MG TABLET (UD) PO SCH (13:06)
[2024-01-28] MEDS: LORATADINE 10 MG TABLET PO SCH (13:06)
[2024-01-28] MEDS ORDERED: ALBUTEROL SO4 0.5 % INH SOLN 2.5 MG/0.5 ML VIAL.NEB. NEB PRN (16:30)
[2024-01-29] MEDS ORDERED: PIPERACILLIN/TAZOB 3.375 GM 3.375 GM in DEXTROSE 5%-WATER - 50 ML IVPB SCH (02:00)
[2024-01-29 09:31] LABS: CALCIUM 9.3 mg/dl (8.5-10.1); CREATININE 0.6 mg/dl (0.6-1.3); MAGNESIUM 2.1 mg/dL (1.8-2.4); PHOSPHOROUS 4.1 (2.5-4.9); POTASSIUM 3.9 mmol/L (3.5-5.1)
[2024-01-29] MEDS: ENOXAPARIN NA (PORCINE) 40 MG/0.4 ML DISP.SYRIN SQ SCH (09:47)
[2024-01-29 11:24] LABS: BASO % 0.6 % (0-2.0); EOS % 1.6 % (0-4.5); HEMATOCRIT 38.4 % (32.4-45.2); HEMOGLOBIN 12.5 GM/dL (10.7-15.3); MCH 28.2 pg (25.7-33.7); MCHC 32.7 g/dl (32.0-36.0); MEAN CELL VOLUME 86.4 fl (80-96); MEAN PLT VOLUME 7.7 fl (7.5-11.1); MONO % 9.5 % (3.8-10.2); NEUT % 68.3 % (42.8-82.8); PLATELET COUNT 349 10^3/uL (134-434); RBC 4.44 M/mm3 (3.60-5.2); WHITE BLOOD COUNT 7.3 K/mm3 (4.0-10.0)
[2024-01-29 14:12] VITALS: BP 138/82; PULSE 77; RESP 18; TEMP 99
== END 2024-01-29 19:03 | disposition home or self-care (01) | DRG 603 ==
LOC: FER 16:42 → FM/S 21:55 → UNDOADMIN 22:10 → FM/S 22:10
PROVIDERS: ADMIT Internal Medicine; ATTEND Internal Medicine
DX: L03.116 Cellulitis of left lower limb (principal); Z68.44 Body mass index [BMI] 60.0-69.9, adult; J45.41 Moderate persistent asthma with (acute) exacerbation; L27.0 Generalized skin eruption due to drugs and medicaments taken internally; T36.8X5A Adverse effect of other systemic antibiotics, initial encounter; E66.01 Morbid (severe) obesity due to excess calories
CPT/HCPCS: 36415; 80048; 80053; 83735; 83880; 84100; 84484; 85025; 85027; 93005; 93971-TC; 99285-25; J3370